=== PATIENT | female | born 1960 | race Hispanic/Latino ===

== ENCOUNTER 2017-09-06 18:16 | Emergency (ER) | payer BC ==
[~2017-09-06 18:16] MED LIST: Iopamidol 370 76% 150 ML VIAL FS ONE
[2017-09-06] MEDS ORDERED: Labetalol HCl 100 MG/20 ML VIAL ONE (19:06)
[2017-09-06 19:24] LABS: #Eosinphils 0.1 thou/uL (0.0-0.7); #Lymphocytes 1.6 thou/uL (1.20-3.40); #Monocytes 0.3 thou/uL (0.11-0.59); #Neutrophils 2.9 thou/uL (1.40-6.50); %Basophils 0.8 % (0.0-1.0); %Eosinophils 1.2 % (0.0-10.0); %Lymphocytes 32.1 % (21.0-51.0); Hematocrit 39.3 % (36.0-47.0); Mean Platelet Volume 7.6 fL (7.4-10.4); Red Blood Cell (RBC) Count 4.51 mill/uL (4.20-5.40); White Blood Cell (WBC) Count 4.9 thou/uL (4.8-10.8)
--- NOTE | 2017-09-06 19:29 | CT ---
CT OF THE BRAIN WITHOUT CONTRAST STROKE PROTOCOL 09/06/17 INDICATION: Syncope with reported loss of consciousness and right arm weakness. COMPARISON: Prior exam dated 10/13/14. FINDINGS: No acute infarct, hemorrhage or hydrocephalus is present. The septum pellucidum and third ventricle a re midline. The skull and extracranial soft tissues are within normal limits. IMPRESSION: No acute intracranial abnormality. Findings called to Dr. Elias at 6:43 p.m. on 09/06/17. POS: [facility]
[2017-09-06 19:30] LABS: Prothrombin Time 12.8 SEC (12.0-14.7)
--- NOTE | 2017-09-06 19:41 | RAD ---
AP VIEW OF THE CHEST 09/06/17 INDICATION: Syncopal episode with chest pain. IMPRESSION: No acute cardiopulmonary abnormality. Examination is not appreciably changed from a comparison dated 05/06/14. POS: [facility]
[2017-09-06 19:49] LABS: ALT (SGPT) 23 U/L (8-55); AST (SGOT) 14 U/L (5-34); Alkaline Phosphatase 100 U/L (40-150); Anion Gap 12 mmol/L (10-20); BUN (Urea Nitrogen) 25 mg/dL (9.8-20.1); Bilirubin, Total 0.7 mg/dL (0.2-1.2); CK (CPK) 62 U/L (29-168); Calc. Creatinine Clearance 0 mL/min (70-130); Calcium 8.8 mg/dL (7.8-10.44); Carbon Dioxide 26 mmol/L (22-29); Chloride 95 mmol/L (98-107); Estimated GFR-MDRD 68; Globulin 3.3 g/dL (2.4-3.5); Lipase 24 U/L (8-78); Magnesium 1.5 mg/dL (1.6-2.6); Protein, Total 6.6 g/dL (6.0-8.3)
[2017-09-06 19:52] LABS: Troponin I Less than 0.010 ng/mL (< 0.028)
--- NOTE | 2017-09-06 19:52 | CT ---
CTA OF THE HEAD AND NECK UTILIZING IV CONTRAST AND 3D REFORMATTED IMAGING CT PERFUSION EVALUATION 09/06/17 INDICATION: 57-year-old female with stroke-like symptoms following a syncopal episode at 5:30 p.m. Family reports loss of consciousness for about three to four minutes. Denies hitting her head. The patient started having chest pain which is now improving. Also reports right arm weakness that started after passing out. Denies numbness or tingling. Patient has a history of a stroke along time ago with no deficits. COMPARISON: Prior MR of the brain dated 10/14/14. TECHNIQUE: Multiple CTA images were obtained of the head and neck utilizing IV contrast and 3D reformatted imagi ng. CT perfusion postprocessing was performed at a separate workstation utilizing CTA data. FINDINGS: No hemodynamically significant stenosis is evident involving the carotid and vertebral arteries. Veno us contamination from the injection slightly limits visualization of the proximal aspect of the right vertebral artery. The MCA and ACAs appear widely patent. The operations coordinator appear widely patent. The basilar appears widely patent. Left vertebral artery appears widely patent. Lung apices are clear. Prevertebral soft tissues appear within normal limits. No area of abnormal enhancement is seen within the brain. CT perfusion images demonstrate no prolongation in mean transit time or diminished blood flow. The bl ood volume is symmetric. IMPRESSION: 1. No evidence to suggest ischemia on a CT perfusion evaluation. 2. No hemodynamically significant stenosis. 3. Some limitation to the exam as above. 4. Findings were called to Dr. Elias 7:05 p.m. on 09/06/17. Code CR POS: [facility]
[2017-09-06 21:39] LABS: Bilirubin Negative (Negative); Blood, Urine Trace (Negative); Glucose, Urine (Dipstick) >=1000 mg/dL (Negative); Ketone, Urine Negative (Negative); Nitrite Negative (Negative); Protein, Urine (Dipstick) 30 mg/dL (Neg-Trace)
[2017-09-06 21:42] LABS: Bacteria/HPF 1+ HPF (None Seen); Hyaline Casts/LPF 0-3 HYALINE CAST LPF (0-3 Hyaline); Squamous Epithelial 0-3 HPF (0-3); WBC/HPF 0-3 HPF (0-3)
[2017-09-06 21:51] LABS: Yeast-All Forms 1+ HPF (None Seen)
--- NOTE | 2017-09-10 11:09 | CT ---
CTA OF THE HEAD AND NECK UTILIZING IV CONTRAST AND 3D REFORMATTED IMAGING CT PERFUSION EVALUATION 09/06/17 INDICATION: 57-year-old female with stroke-like symptoms following a syncopal episode at 5:30 p.m. Family reports loss of consciousness for about three to four minutes. Denies hitting her head. The patient started having chest pain which is now improving. Also reports right arm weakness that started after passing out. Denies numbness or tingling. Patient has a history of a stroke along time ago with no deficits. COMPARISON: Prior MR of the brain dated 10/14/14. TECHNIQUE: Multiple CTA images were obtained of the head and neck utilizing IV contrast and 3D reformatted imagi ng. CT perfusion postprocessing was performed at a separate workstation utilizing CTA data. FINDINGS: No hemodynamically significant stenosis is evident involving the carotid and vertebral arteries. Veno us contamination from the injection slightly limits visualization of the proximal aspect of the right vertebral artery. The MCA and ACAs appear widely patent. The personnel assistant appear widely patent. The basilar appears widely patent. Left vertebral artery appears widely patent. Lung apices are clear. Prevertebral soft tissues appear within normal limits. No area of abnormal enhancement is seen within the brain. CT perfusion images demonstrate no prolongation in mean transit time or diminished blood flow. The bl ood volume is symmetric. IMPRESSION: 1.No evidence to suggest ischemia on a CT perfusion evaluation. 2.No hemodynamically significant stenosis. 3.Some limitation to the exam as above. 4.Findings were called to Dr. Elias 7:05 p.m. on 09/06/17. Code [facility]
--- NOTE | 2017-09-16 13:24 | EKG ---
Test Reason : CP Blood Pressure : / mmHG Vent. Rate : 076 BPM Atrial Rate : 076 BPM P-R Int : 146 ms QRS Dur : 082 ms QT Int : 378 ms P-R-T Axes : 037 024 033 degrees QTc Int : 425 ms Normal sinus rhythm Normal ECG Confirmed by SAUMYA VALENCIA ([id number]), magazine editor TASNEEM RAMESH ([id number]) on 09/16/2017 1:23:48 PM Referred By: Confirmed By:SAUMYA VALENCIA
== END 2017-09-06 22:06 | disposition left against medical advice (07) ==
LOC: ERS 18:16
DX: G45.9 Transient cerebral ischemic attack, unspecified (principal); R07.9 Chest pain, unspecified; H54.7 Unspecified visual loss; I10 Essential (primary) hypertension; E11.9 Type 2 diabetes mellitus without complications; E78.5 Hyperlipidemia, unspecified; Z79.84 Long term (current) use of oral hypoglycemic drugs; Z79.899 Other long term (current) drug therapy
CPT/HCPCS: 0042T; 36415; 36416; 70450; 70496; 70498; 71010; 80053; 81003; 81015; 82550; 82553; 83690; 83735; 83880; 84484; 85025; 85610; 85730; 93005; 94760

== ENCOUNTER 2017-11-09 11:01 | Emergency (ER) | payer BC, SELFPAY ==
[2017-11-09 11:35] LABS: #Basophils 0.1 thou/uL (0.0-0.2); #Eosinphils 0.1 thou/uL (0.0-0.7); #Lymphocytes 1.8 thou/uL (1.20-3.40); #Monocytes 0.2 thou/uL (0.11-0.59); #Neutrophils 2.8 thou/uL (1.40-6.50); %Basophils 2.1 % (0.0-1.0); %Eosinophils 1.7 % (0.0-10.0); %Monocytes 4.5 % (0.0-10.0); %Neutrophils 55.7 % (42.0-75.0); Mean Corpuscular HGB CONC 35.6 g/dL (32.0-36.0); Mean Corpuscular Hemoglobin 30.8 pg (27.0-31.0); Mean Corpuscular Volume 86.4 fl (81.0-99.0); Mean Platelet Volume 7.4 fL (7.4-10.4); Platelet Count 159 thou/uL (130-400); RBC Distribution Width 12.5 % (11.5-14.5); Red Blood Cell (RBC) Count 4.54 mill/uL (4.20-5.40); White Blood Cell (WBC) Count 5.1 thou/uL (4.8-10.8)
[2017-11-09 11:56] LABS: ALT (SGPT) 22 U/L (8-55); AST (SGOT) 14 U/L (5-34); Albumin 3.3 g/dL (3.5-5.0); Alkaline Phosphatase 92 U/L (40-150); Anion Gap 12 mmol/L (10-20); BUN (Urea Nitrogen) 19 mg/dL (9.8-20.1); Bilirubin, Total 0.8 mg/dL (0.2-1.2); Calc. Creatinine Clearance 0 mL/min (70-130); Calcium 8.9 mg/dL (7.8-10.44); Carbon Dioxide 26 mmol/L (22-29); Chloride 102 mmol/L (98-107); Estimated GFR-MDRD 73; Glucose 290 mg/dL (70-105); Potassium 4.2 mmol/L (3.5-5.1); Protein, Total 6.3 g/dL (6.0-8.3); Sodium 136 mmol/L (136-145)
[2017-11-09 12:02] LABS: CKMB 1.4 ng/mL (0-6.6); Troponin I Less than 0.010 ng/mL (< 0.028)
[2017-11-09 12:39] LABS: Bilirubin Negative (Negative); Blood, Urine Trace (Negative); Clarity CLEAR (Clear); Glucose, Urine (Dipstick) >=1000 mg/dL (Negative); Leukocyte Negative (Negative); Nitrite Negative (Negative); Protein, Urine (Dipstick) 100 mg/dL (Neg-Trace); Specific Gravity, Urine 1.028 (1.002-1.036); Urobilinogen 0.2 mg/dL (0.2-1.0); pH, Urine 6.5 (5.0-9.0)
[2017-11-09 12:43] LABS: Bacteria/HPF 2+ HPF (None Seen); Hyaline Casts/LPF 0-3 HYALINE CAST LPF (0-3 Hyaline); Pathc Cast-AUWi Flag 0.13 (0-2.49)
[2017-11-09 12:46] LABS: Yeast-AUWi Flag 144.8 (0-25.0)
[2017-11-09] MEDS ORDERED: Acetaminophen 500 MG TAB ONE (12:47)
[2017-11-09 12:53] LABS: RBC/HPF 0-3 HPF (0-3); Yeast-All Forms Rare HPF (None Seen)
--- NOTE | 2017-11-09 13:01 | RAD ---
CHEST 1 VIEW: History Fall. Cough. COMPARISON: 09/06/17. FINDINGS: Cardiac silhouette is magnified by projection. Pulmonary vasculature is unremarkable. Mediastinum i s midline. There is no confluent airspace consolidation or evidence of pneumothorax. Postoperative changes of the upper abdomen are partially visualized. IMPRESSION: No active cardiopulmonary abnormalities are demonstrated. POS: [facility]
== END 2017-11-09 13:30 | disposition home or self-care (01) ==
LOC: ERS 11:01
DX: E86.0 Dehydration (principal); R53.1 Weakness; N39.0 Urinary tract infection, site not specified; I10 Essential (primary) hypertension; E11.9 Type 2 diabetes mellitus without complications; E78.5 Hyperlipidemia, unspecified; Z79.899 Other long term (current) drug therapy; Z79.84 Long term (current) use of oral hypoglycemic drugs
CPT/HCPCS: 36415; 71045; 80053; 81003; 81015; 82550; 82553; 83880; 84484; 85025; 85379; 87040; 93005; 96360

== ENCOUNTER 2018-03-07 11:50 | Emergency (ER) | payer SELFPAY ==
--- NOTE | 2018-03-07 12:46 | RAD ---
RIGHT ANKLE 3 VIEWS: Date: 03/07/18 HISTORY: Right heel pain. FINDINGS/IMPRESSION: The ankle mortise is maintained. No fracture, dislocation, or bony destruction is seen. There are sarabjit ntar and posterior calcaneal spurs. POS: [facility]
--- NOTE | 2018-03-07 12:47 | RAD ---
RIGHT FOOT 3 VIEWS: Date: 03/07/18 HISTORY: Right heel pain. FINDINGS/IMPRESSION: No fracture, dislocation, or bony destruction is identified. There are posterior and plantar calcanea l spurs. POS: [facility]
[2018-03-07] MEDS ORDERED: Dexamethasone 10 MG/ML VIAL ONE (13:37)
[2018-03-07] MEDS ORDERED: Ketorolac Tromethamine 60 MG/2 ML VIAL ONE (13:37)
== END 2018-03-07 14:00 | disposition home or self-care (01) ==
LOC: ERS 11:50
DX: M77.31 Calcaneal spur, right foot (principal); I10 Essential (primary) hypertension; E11.9 Type 2 diabetes mellitus without complications; E78.5 Hyperlipidemia, unspecified; Z85.528 Personal history of other malignant neoplasm of kidney; Z79.84 Long term (current) use of oral hypoglycemic drugs; Z79.899 Other long term (current) drug therapy
CPT/HCPCS: 96372; J1100; J1885

== ENCOUNTER 2018-04-13 08:53 | Outpatient (CLI) | payer BC | END 2018-04-13 08:54 | disposition home or self-care (01) | LOC: BICRAD 08:53 | PROVIDERS: ATTEND Podiatrist | DX: M76.60 Achilles tendinitis, unspecified leg (principal); M79.661 Pain in right lower leg; R60.9 Edema, unspecified ==

== ENCOUNTER 2018-05-22 16:35 | Inpatient (IN) | payer BC ==
[2018-05-22 18:41] LABS: #Eosinphils 0.1 thou/uL (0.0-0.7); #Lymphocytes 1.9 thou/uL (1.20-3.40); #Monocytes 0.3 thou/uL (0.11-0.59); #Neutrophils 3.7 thou/uL (1.40-6.50); %Basophils 0.5 % (0.0-1.0); %Eosinophils 1.3 % (0.0-10.0); %Lymphocytes 31.5 % (21.0-51.0); %Monocytes 4.5 % (0.0-10.0); %Neutrophils 62.3 % (42.0-75.0); Hemoglobin 14.1 g/dL (12.0-16.0); Mean Corpuscular HGB CONC 35.8 g/dL (32.0-36.0); Mean Corpuscular Hemoglobin 30.2 pg (27.0-31.0); Mean Corpuscular Volume 84.4 fL (78.0-98.0); Mean Platelet Volume 7.6 fL (7.4-10.4); Platelet Count 163 thou/uL (130-400); RBC Distribution Width 12.5 % (11.5-14.5); Red Blood Cell (RBC) Count 4.67 mill/uL (4.20-5.40); White Blood Cell (WBC) Count 5.9 thou/uL (4.8-10.8)
[2018-05-22 19:04] LABS: ALT (SGPT) 23 U/L (8-55); AST (SGOT) 13 U/L (5-34); Albumin 3.4 g/dL (3.5-5.0); Alkaline Phosphatase 114 U/L (40-150); Anion Gap 13 mmol/L (10-20); BUN (Urea Nitrogen) 21 mg/dL (9.8-20.1); Bilirubin, Total 0.6 mg/dL (0.2-1.2); Calc. Creatinine Clearance 0 mL/min (70-130); Carbon Dioxide 24 mmol/L (22-29); Chloride 100 mmol/L (98-107); Estimated GFR-MDRD 47; Globulin 3.2 g/dL (2.4-3.5); Potassium 4.4 mmol/L (3.5-5.1); Protein, Total 6.6 g/dL (6.0-8.3); Sodium 133 mmol/L (136-145)
[2018-05-22 19:08] LABS: Glucose 554 mg/dL (70-105)
--- NOTE | 2018-05-22 19:08 | RAD ---
RIGHT HAND THREE VIEWS: 05/22/18 HISTORY: Right hand pain and infection. FINDINGS: Joint spaces are preserved. Soft tissue swelling over the medial margin of the hand. No acute fractur e, dislocation, or radiopaque foreign bodies, or soft tissue gas. IMPRESSION: No acute osseous abnormalities are demonstrated. POS: [facility]
[2018-05-22] MEDS ORDERED: cefTRIAXone\\ROCEPHIN 2 GM VIAL ONE (20:06)
[2018-05-22] MEDS ORDERED: Insulin Regular 300 UNITS/3 ML VIAL ONE (20:06)
[2018-05-22 21:49] VITALS: BMI 36.1
[2018-05-22] MEDS ORDERED: Acetaminophen 325 MG TAB PO PRN (21:51)
[2018-05-22] MEDS ORDERED: Ondansetron HCl/PF 4 MG/2 ML Vial IVP PRN (21:51)
[2018-05-22] MEDS ORDERED: Ondansetron ODT 4 MG TAB SL PRN (21:51)
[2018-05-22] MEDS ORDERED: Sodium Chloride 0.9% 1,000 ML IV SCH ×2 (22:00→23:25)
[2018-05-22 22:49] LABS: Lactic Acid 1.5 mmol/L (0.5-2.2)
[2018-05-22] MEDS ORDERED: Dextrose 5% in Water 1,000 ML IV PRN (23:26)
[2018-05-22] MEDS ORDERED: Dextrose 50% Abboject 50 ML SYRINGE SLOW IVP PRN (23:26)
--- NOTE | 2018-05-23 03:49 | CON ---
DATE OF CONSULTATION: 05/22/2018 CHIEF COMPLAINT: Right hand swelling and pain after local injury. HISTORY OF PRESENT ILLNESS: The patient reports she is a diabetic, taking an oral medication, who re ports an unchanged diabetic regimen, but reports that a small kitchen unit burner contacted her right dorsal ring finger near the nailbed approximately 3 days ago and for most of that time until approxi mately 24 hours ago, she had no pain, but noticed swelling, slight redness, and decreased motion toda y. She has never had an injury here before. Emergency room evaluation there reveals a blood sugar o hilary 500. White blood cell count is normal. No anemia. PHYSICAL EXAMINATION: The patient today has erythema that is moderate over the distal half of the mid dle phalanx out to the nailbed where she has a small bulla without any obvious abscess or fluctuance over the joint. There is no pain with joint motion, indeed today she has full extension of that ring finger distal interphalangeal joint, no stretch pain, no fusiform swelling, no pain along the tendon sheath, and her edema is primarily dorsal to the level of the PIP joint, but involved in either int erphalangeal joint. There is no stretch pain whatsoever. She can touch the tip of the ring finger t o the palm today. This exam took place at approximately 1935 on the date of consultation. ASSESSMENT AND RECOMMENDATIONS: Cellulitis secondary to burn complicated by diabetic, elevated blood sugar: This patient will probably be admitted for diabetic care, I recommended she have IV antibiot ics for 36 hours, will be reevaluated then. She does not make complete resolution, then shortly ther [facility], she would have operative intervention. We will evaluate the patient in here in the hospital sometime on the 05/25/2018 approximately 48 hours after this. I told the patient of the possibility especially with diabetes, and she will need intervention, but she should have a 36 to 48-hour trial o f IV antibiotics. If further problems exist or she deteriorates rapidly, please reconsult Orthopedic Service, which is covering for the weekend.
[2018-05-23 04:43] LABS: #Eosinphils 0.1 thou/uL (0.0-0.7); #Lymphocytes 2.4 thou/uL (1.20-3.40); #Monocytes 0.4 thou/uL (0.11-0.59); #Neutrophils 3.1 thou/uL (1.40-6.50); %Basophils 0.8 % (0.0-1.0); %Eosinophils 1.9 % (0.0-10.0); %Lymphocytes 40.3 % (21.0-51.0); %Monocytes 6.3 % (0.0-10.0); %Neutrophils 50.7 % (42.0-75.0); Hemoglobin 12.5 g/dL (12.0-16.0); Mean Corpuscular Hemoglobin 30.4 pg (27.0-31.0); Mean Corpuscular Volume 84.6 fL (78.0-98.0); Mean Platelet Volume 7.6 fL (7.4-10.4); Platelet Count 141 thou/uL (130-400); RBC Distribution Width 12.5 % (11.5-14.5); White Blood Cell (WBC) Count 6.1 thou/uL (4.8-10.8)
[2018-05-23 04:58] LABS: Anion Gap 12 mmol/L (10-20); BUN (Urea Nitrogen) 17 mg/dL (9.8-20.1); Calc. Creatinine Clearance 102 mL/min (70-130); Calcium 8.7 mg/dL (7.8-10.44); Carbon Dioxide 23 mmol/L (22-29); Chloride 104 mmol/L (98-107); Estimated GFR-MDRD 73; Glucose 356 mg/dL (70-105); Potassium 3.8 mmol/L (3.5-5.1); Sodium 135 mmol/L (136-145)
[2018-05-23] MEDS: HumaLOG 300 UNITS/3 ML VIAL SC PRN ×4 (05:17→21:26)
--- NOTE | 2018-05-23 07:28 | HP ---
PRIMARY CARE PHYSICIAN: Dr. Wu. CODE STATUS: FULL CODE. TIME OF EVALUATION: 08:50 p.m. CHIEF COMPLAINT: Right fourth finger pain. HISTORY OF PRESENT ILLNESS: This is a 58-year-old female patient with past medical history of hypert ension; diabetes, type 2; hyperlipidemia, high cholesterol, came to the hospital after having pain, r edness, swelling, decreased range of motion due to tenderness in the right fourth finger, seen the re dness extending from the tip of the finger to the hand, the initial lesion was a burn in that area, n o alleviating factors. Symptoms were reported as moderate. REVIEW OF SYSTEMS: Constitutional: The patient had no fever, no chills, no generalized weakness. R espiratory: No cough, sputum production, or shortness of breath. Cardiovascular: No chest pain, pa lpitations, or shortness of breath. Gastrointestinal: No nausea. No vomiting. No diarrhea or abdo miracle pain. 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 Genitourinary: No burning on [place]. Extremities: No leg swelling. SKIN: There is right bobby redness, swelling, and tenderness seen that was extending to the hand. All other systems were reviewed and negative except for the findings mentioned above. PAST MEDICAL HISTORY: The patient has a history of hypertension, diabetes, hyperlipidemia. PAST SURGICAL HISTORY: x2, left kidney removal due to kidney cancer, cholecystectomy. PSYCHIATRIC HISTORY: No previous history. FAMILY HISTORY: Reviewed and noncontributory for current presentation. SOCIAL HISTORY: No drugs. No smoking history. No alcohol. ALLERGIES: No known drug allergies. REPORTED MEDICATIONS: Lovastatin, glipizide, lisinopril, furosemide, carvedilol, metformin, Ultram. PHYSICAL EXAMINATION: VITAL SIGNS: On presentation, blood pressure 145/77 with heart rate 91, respiratory rate was 18, tem perature 97, pain 8, oxygen saturation 96% on room air. GENERAL APPEARANCE: The patient is alert and oriented, not in any acute distress. HEENT: Eyes, normal conjunctivae. Moist oral mucosa. Anicteric. NECK: No JVD. RESPIRATORY: Bilateral air entry. No rales, no wheezing. Symmetrical expansion. CARDIOVASCULAR: Normal rate, regular rhythm. No murmurs, no gallops. No edema. ABDOMEN: Soft, normal bowel sounds. MUSCULOSKELETAL: Baseline range of motion and strength. No tenderness. SKIN: The patient has redness, swelling, tenderness, and decreased range of motion of the fourth fin jaimie of the right side, with extension of the swelling to the hand, peripheral pulses are present. Ca pillary refill seems to be intact. NEUROLOGIC: Baseline sensory. No evidence of any focal weakness. Baseline speech. Cranial nerves seem to be intact. PSYCHIATRIC: Good mood. No anxiety. Oriented, optimal judgment. IMAGING: Hand x-ray was done. The patient had no acute osseous abnormalities are demonstrated. LABORATORY DATA: The labs were reviewed. The patient has white count 5.9, hemoglobin 14.1, MCV 84, and platelet count 163. Chemistry: Sodium 133, potassium 4.4, chloride 100, carbon dioxide 24, anio n gap 13, BUN 21, creatinine 1.19, GFR 47, glucose 144, repeat one was 411. Lactic acid 2.3, came do wn to 1.5. C-reactive protein 1.191. ASSESSMENT AND PLAN: The patient will be placed in the hospital with following medical problems. 1. Infectious right fourth finger extending to the hand, the patient has been started on antib iotics and we will continue for now, Orthopedic Surgery has been consulted, we will follow recommendgermain tijagdish. 2. Hyponatremia, sodium 133, this is mild, no significant treatment to be started right now. We tonya l monitor. We will adjust treatment as needed. 3. Mildly elevated BUN and creatinine, likely secondary to dehydration versus possibility for sepsis , we will hydrate, we will monitor, we will treat accordingly. 4. Uncontrolled diabetes with glucose 154, likely secondary to underlying infection, we will place t he patient on sliding scale. We will reconcile home medications, adjust treatment as needed. 5. Lactic acidosis on presentation with lactic acid 2.3, came down to 1.5, likely secondary to under lying infection, sepsis, treatment as above. 6. Uncontrolled hypertension with systolic blood pressure 145, reconcile home medication, adjust liam atment as needed. We will not treat aggressively given underlying infection. 7. Hyperlipidemia, reconcile home medication, adjust treatment as needed, low cholesterol diet is ad vised.
[2018-05-23] MEDS: Furosemide 40 MG TAB PO SCH ×2 (08:25→14:23)
[2018-05-23] MEDS: Aspirin 81 mg Enteric Coated Tablet PO SCH (08:25)
[2018-05-23] MEDS: Carvedilol 3.125 MG TAB PO SCH ×2 (08:26→21:26)
[2018-05-23] MEDS: Lisinopril 5 MG TAB PO SCH (08:26)
[2018-05-23] MEDS: Enoxaparin Sodium 40 MG/0.4 ML SYRINGE SC SCH (08:27)
[2018-05-23] MEDS ORDERED: Meloxicam 15 MG TAB PO SCH (09:00)
[2018-05-23] MEDS ORDERED: Sodium Chloride 0.65% Nasal 44 ML BOT EA NARE PRN (09:53)
[2018-05-23] MEDS ORDERED: Temazepam 15 MG CAP PO PRN (09:53)
[2018-05-23] MEDS ORDERED: Loratadine 10 MG TAB PO PRN (09:53)
[2018-05-23] MEDS ORDERED: Chloraseptic Spray 180 ml Bottle PO PRN (09:53)
[2018-05-23] MEDS ORDERED: Ondansetron ODT 4 MG TAB PO PRN (09:53)
[2018-05-23] MEDS ORDERED: cloNIDine 0.1 MG TAB PO PRN (09:53)
[2018-05-23] MEDS ORDERED: hydrALAZINE 20 MG/ML VIAL SLOW IVP PRN (09:53)
[2018-05-23] MEDS ORDERED: Famotidine 20 MG TAB PO PRN (09:53)
[2018-05-23] MEDS ORDERED: Loperamide HCl 2 MG CAP PO PRN (09:53)
[2018-05-23] MEDS ORDERED: Eucerin (Mineral Oil/Petrolatum,White) 30 gm Jar TOP PRN (09:53)
[2018-05-23] MEDS ORDERED: Milk Of Magnesia 30 ML UDCUP PO PRN (09:53)
[2018-05-23] MEDS ORDERED: Artificial Tears 18 DROP/0.9 ML EA EYE PRN (09:53)
[2018-05-23] MEDS ORDERED: Diabetic Tussin 200 MG/10 ML UDCUP PO PRN (09:53)
[2018-05-23] MEDS ORDERED: Mag-Al 1200 mg/1200 mg/30 ML UDCUP PO PRN (09:53)
[2018-05-23] MEDS ORDERED: HYDROcodone/Acetaminophen 5/325 mg Tablet PO PRN (09:53)
[2018-05-23] MEDS ORDERED: Senokot 8.6 MG TAB PO PRN (09:53)
--- NOTE | 2018-05-23 10:38 | PDOC.PN ---
- Subjective Encounter Start Date: 05/23/18 Encounter Start Time: 08:30 -: old records requested/rev Patient seen and examined. No new complaints. No overnight events - Objective Resuscitation Status: Resuscitation Status FULL:Full Resuscitation MAR Reviewed: Yes Vital Signs & Weight: Vital Signs (12 hours) Temp Pulse Resp BP BP BP Pulse Ox 05/23/18 08:26 74 130/84 05/23/18 07:12 97.8 F 74 16 108/72 96 05/23/18 04:00 97.8 F 80 18 112/71 96 Weight Weight 185 lb Result Diagrams: 05/23/18 03:50 05/23/18 03:50 Additional Labs: Accuchecks 05/23/18 05/22/18 05:16 21:12 POC Glucose 310 H 411 H Radiology Reviewed by me: Yes Phys Exam - Physical Examination Constitutional: NAD HEENT: PERRLA, moist MMs, sclera anicteric Neck: no JVD, supple Respiratory: no wheezing, no rales, no rhonchi Cardiovascular: RRR, no significant murmur, no rub Gastrointestinal: soft, non-tender, no distention, positive bowel sounds Musculoskeletal: no edema, pulses present right finger cellulitis improving Neurological: non-focal, normal sensation, moves all 4 limbs Lymphatic: no nodes Psychiatric: normal affect, A&O x 3 Skin: no rash, normal turgor Dx/Plan (1) Acute kidney injury Code(s): N17.9 - ACUTE KIDNEY FAILURE, UNSPECIFIED Status: Acute (2) Cellulitis of right hand Code(s): L03.113 - CELLULITIS OF RIGHT UPPER LIMB Status: Acute (3) Hyponatremia Code(s): E87.1 - HYPO-OSMOLALITY AND HYPONATREMIA Status: Acute (4) Diabetes type 2, uncontrolled Code(s): E11.65 - TYPE 2 DIABETES MELLITUS WITH HYPERGLYCEMIA Status: Chronic (5) Dyslipidemia Code(s): E78.5 - HYPERLIPIDEMIA, UNSPECIFIED Status: Chronic (6) Hypertension Code(s): I10 - ESSENTIAL (PRIMARY) HYPERTENSION Status: Chronic (7) Obesity (BMI 30-39.9) Code(s): E66.9 - OBESITY, UNSPECIFIED Status: Chronic - Plan cont current plan of care, plan discussed w/ family, continue antibiotics * continue IV antibiotics for next 48 hours * restart diabetic medication * pain controlled * control diabetes today. Review of Systems - Review of Systems Constitutional: negative: fever, chills, sweats, weakness, malaise, other Eyes: negative: Pain, Vision Change, Conjunctivae Inflammation, Eyelid Inflammation, Redness, Other ENT: negative: Ear Pain, Ear Discharge, Nose Pain, Nose Discharge, Nose Congestion, Mouth Pain, Mouth Swelling, Throat Pain, Throat Swelling, Other Respiratory: negative: Cough, Dry, Shortness of Breath, Hemoptysis, SOB with Excertion, Pleuritic Pain, Sputum, Wheezing Cardiovascular: negative: chest pain, palpitations, orthopnea, paroxysmal nocturnal dyspnea, edema, light headedness, other Gastrointestinal: negative: Nausea, Vomiting, Abdominal Pain, Diarrhea, Constipation, Melena, Hematochezia, Other Genitourinary: negative: Dysuria, Frequency, Incontinence, Hematuria, Retention , Other Musculoskeletal: Hand Pain. negative: Neck Pain, Shoulder Pain, Arm Pain, Back Pain, Leg Pain, Foot Pain, Other - Medications/Allergies Allergies/Adverse Reactions: Allergies Allergy/AdvReac Type Severity Reaction Status Date / Time No Known Drug Allergies Allergy Verified 06/12/16 10:47 Medications: Current Medications Acetaminophen (Tylenol) 650 mg PO Q4H PRN PRN Reason: Headache/Fever or Pain Stop: 05/25/18 07:49 Hydrocodone Bitart/Acetaminophen ([place] 5/325) 1 tab PO Q4H PRN PRN Reason: Moderate Pain (4-6) Al Hydroxide/Mg Hydroxide (Maalox) 15 ml PO Q4H PRN PRN Reason: Heartburn or Indigestion Artificial Tears (Tears Naturale) 0 drop EA EYE PRN PRN PRN Reason: Dry Eyes Aspirin (Ecotrin) 81 mg PO DAILY [facility] Last Admin: 05/23/18 08:25 Dose: 81 mg Atorvastatin Calcium (Lipitor) 20 mg PO HS [facility] Carvedilol (Coreg) 3.125 mg PO BID [facility] Last Admin: 05/23/18 08:26 Dose: 3.125 mg Clonidine (Catapres) 0.1 mg PO Q4H PRN PRN Reason: Systolic BP > 180 Dextrose/Water (Dextrose 50%) 25 gm SLOW IVP PRN PRN PRN Reason: Hypoglycemia Enoxaparin Sodium (Lovenox) 40 mg SC 0900 [facility] Last Admin: 05/23/18 08:27 Dose: Not Given Famotidine (Pepcid) 20 mg PO BIDPRN PRN PRN Reason: Heartburn or Indigestion Furosemide (Lasix) 40 mg PO 0900,1400 [facility] Last Admin: 05/23/18 08:25 Dose: 40 mg Glipizide (Glucotrol Xl) 5 mg PO QAM-[facility] Glucagon (Glucagon) 1 mg IM PRN PRN PRN Reason: Hypoglycemia Guaifenesin (Robitussin Sf) 200 mg PO Q4H PRN PRN Reason: Cough Hydralazine HCl (Apresoline) 10 mg SLOW IVP Q4H PRN PRN Reason: Systolic BP > 180 Ceftriaxone Sodium 1 gm/ (Sodium Chloride) 100 mls @ 200 mls/hr IVPB Q24HR [facility] Dextrose/Water (D5w) 1,000 mls @ 0 mls/hr IV .Q0M PRN PRN Reason: Hypoglycemia Vancomycin HCl 1.25 gm/ Sodium (Chloride) 250 mls @ 166.667 mls/hr IVPB 1600 [facility] Insulin Human Lispro (Humalog) 0 units SC .MILD SLIDING SCALE PRN PRN Reason: Mild Correctional Scale Last Admin: 05/23/18 05:17 Dose: 5 unit Lisinopril (Zestril) 5 mg PO DAILY [facility] Last Admin: 05/23/18 08:26 Dose: 5 mg Loperamide HCl (Imodium) 2 mg PO PRN PRN PRN Reason: Diarrhea/Loose Stools Loratadine (Claritin) 10 mg PO DAILYPRN PRN PRN Reason: Sinus Symptoms Magnesium Hydroxide (Milk Of Magnesium) 30 ml PO DAILYPRN PRN PRN Reason: Constipation Metformin HCl (Glucophage) 1,000 mg PO BID-WM [facility] Mineral Oil/White Petrolatum (Eucerin Cream) 0 gm TOP BIDPRN PRN PRN Reason: Dry Skin Ondansetron HCl (Zofran) 4 mg IVP Q6H PRN PRN Reason: Nausea/Vomiting Stop: 05/26/18 07:49 Ondansetron HCl (Zofran Odt) 4 mg PO Q6H PRN PRN Reason: Nausea/Vomiting Phenol (Chloraseptic [place] 180 Ml Bot) 0 ml PO PRN PRN PRN Reason: Sore Throat Senna (Senokot) 2 tab PO HSPRN PRN PRN Reason: Constipation Sodium Chloride ([place]ams Nasal [place] 0.65%) 0 ml EA NARE QIDPRN PRN PRN Reason: Nasal Congestion Temazepam (Restoril) 15 mg PO HSPRN PRN PRN Reason: Insomnia
[2018-05-23] MEDS: metFORMIN 500 MG TAB PO SCH (16:34)
[2018-05-23] MEDS: Vancomycin HCl 1.25 GM in Sodium Chloride 0.9% 250 ML 250 ML IVPB SCH (16:34)
[2018-05-23] MEDS: Atorvastatin Calcium 20 MG TAB PO SCH (21:26)
[2018-05-23] MEDS: cefTRIAXone\\ROCEPHIN 1 GM in Sodium Chloride 0.9% 100 ML IVPB SCH (21:41)
[2018-05-24 04:52] LABS: #Basophils 0.1 thou/uL (0.0-0.2); #Eosinphils 0.1 thou/uL (0.0-0.7); #Lymphocytes 2.5 thou/uL (1.20-3.40); #Monocytes 0.4 thou/uL (0.11-0.59); #Neutrophils 3.8 thou/uL (1.40-6.50); %Basophils 0.8 % (0.0-1.0); %Eosinophils 1.7 % (0.0-10.0); %Lymphocytes 36.6 % (21.0-51.0); %Monocytes 5.8 % (0.0-10.0); %Neutrophils 55.2 % (42.0-75.0); Hemoglobin 12.9 g/dL (12.0-16.0); Mean Corpuscular HGB CONC 34.4 g/dL (32.0-36.0); Mean Corpuscular Hemoglobin 29.3 pg (27.0-31.0); Mean Platelet Volume 7.8 fL (7.4-10.4); Platelet Count 166 thou/uL (130-400); RBC Distribution Width 12.6 % (11.5-14.5); Red Blood Cell (RBC) Count 4.39 mill/uL (4.20-5.40); White Blood Cell (WBC) Count 6.9 thou/uL (4.8-10.8)
[2018-05-24 05:12] LABS: Anion Gap 12 mmol/L (10-20); BUN (Urea Nitrogen) 20 mg/dL (9.8-20.1); Calc. Creatinine Clearance 86 mL/min (70-130); Calcium 8.9 mg/dL (7.8-10.44); Carbon Dioxide 28 mmol/L (22-29); Chloride 100 mmol/L (98-107); Estimated GFR-MDRD 60; Glucose 323 mg/dL (70-105); Potassium 3.7 mmol/L (3.5-5.1); Sodium 136 mmol/L (136-145)
[2018-05-24] MEDS: HumaLOG 300 UNITS/3 ML VIAL SC PRN ×3 (05:51→18:15)
[2018-05-24] MEDS: Lisinopril 5 MG TAB PO SCH (09:02)
[2018-05-24] MEDS: Furosemide 40 MG TAB PO SCH ×2 (09:02→15:21)
[2018-05-24] MEDS: metFORMIN 500 MG TAB PO SCH ×2 (09:04→16:35)
[2018-05-24] MEDS: Carvedilol 3.125 MG TAB PO SCH ×2 (09:04→20:04)
[2018-05-24] MEDS: Aspirin 81 mg Enteric Coated Tablet PO SCH (09:04)
[2018-05-24] MEDS: Enoxaparin Sodium 40 MG/0.4 ML SYRINGE SC SCH (09:05)
[2018-05-24 09:48] LABS: Hemoglobin A1c 13.6 % (4.0-6.0)
--- NOTE | 2018-05-24 11:41 | PDOC.PN ---
- Subjective Encounter Start Date: 05/24/18 Encounter Start Time: 08:20 Patient seen and examined. No new complaints. No overnight events - Objective Resuscitation Status: Resuscitation Status FULL:Full Resuscitation MAR Reviewed: Yes Vital Signs & Weight: Vital Signs (12 hours) Temp Pulse Resp BP BP Pulse Ox 05/24/18 09:02 73 131/83 05/24/18 07:17 97.8 F 73 16 106/72 96 Weight Weight 185 lb I&O: 05/23/18 05/24/18 05/25/18 06:59 06:59 06:59 Intake Total 1820 Balance 1820 Result Diagrams: 05/24/18 04:06 05/24/18 04:06 Additional Labs: Accuchecks 05/24/18 05/23/18 05/23/18 04:39 19:45 16:21 POC Glucose 313 H 451 H 476 H 05/23/18 11:07 POC Glucose 310 H Phys Exam - Physical Examination Constitutional: NAD HEENT: PERRLA, moist MMs, sclera anicteric Neck: no JVD, supple Respiratory: no wheezing, no rales, no rhonchi Cardiovascular: RRR, no significant murmur, no rub Gastrointestinal: soft, non-tender, no distention, positive bowel sounds Musculoskeletal: no edema, pulses present right hand swelling and finger cellulitis improving Neurological: non-focal, normal sensation, moves all 4 limbs Psychiatric: normal affect, A&O x 3 Skin: no rash, normal turgor Dx/Plan (1) Acute kidney injury Code(s): N17.9 - ACUTE KIDNEY FAILURE, UNSPECIFIED Status: Acute (2) Cellulitis of right hand Code(s): L03.113 - CELLULITIS OF RIGHT UPPER LIMB Status: Acute (3) Hyponatremia Code(s): E87.1 - HYPO-OSMOLALITY AND HYPONATREMIA Status: Acute (4) Diabetes type 2, uncontrolled Code(s): E11.65 - TYPE 2 DIABETES MELLITUS WITH HYPERGLYCEMIA Status: Chronic (5) Dyslipidemia Code(s): E78.5 - HYPERLIPIDEMIA, UNSPECIFIED Status: Chronic (6) Hypertension Code(s): I10 - ESSENTIAL (PRIMARY) HYPERTENSION Status: Chronic (7) Obesity (BMI 30-39.9) Code(s): E66.9 - OBESITY, UNSPECIFIED Status: Chronic - Plan cont current plan of care, continue antibiotics * HBA1c is very high, for better control of blood sugar, will change to glipizide 5 mg po bid, will add levemir 15 unit sc hs * continue current IV antibiotics, rocephin and vancomycin * medication reviewed as below * symptomatic treatment * pain controlled. Review of Systems - Review of Systems Eyes: negative: Pain, Vision Change, Conjunctivae Inflammation, Eyelid Inflammation, Redness, Other ENT: negative: Ear Pain, Ear Discharge, Nose Pain, Nose Discharge, Nose Congestion, Mouth Pain, Mouth Swelling, Throat Pain, Throat Swelling, Other Respiratory: negative: Cough, Dry, Shortness of Breath, Hemoptysis, SOB with Excertion, Pleuritic Pain, Sputum, Wheezing Cardiovascular: negative: chest pain, palpitations, orthopnea, paroxysmal nocturnal dyspnea, edema, light headedness, other Gastrointestinal: negative: Nausea, Vomiting, Abdominal Pain, Diarrhea, Constipation, Melena, Hematochezia, Other Genitourinary: negative: Dysuria, Frequency, Incontinence, Hematuria, Retention , Other Musculoskeletal: Hand Pain. negative: Neck Pain, Shoulder Pain, Arm Pain, Back Pain, Leg Pain, Foot Pain, Other Skin: negative: Rash, Lesions, Jimenez, Bruising, Other - Medications/Allergies Allergies/Adverse Reactions: Allergies Allergy/AdvReac Type Severity Reaction Status Date / Time No Known Drug Allergies Allergy Verified 06/12/16 10:47 Medications: Current Medications Acetaminophen (Tylenol) 650 mg PO Q4H PRN PRN Reason: Headache/Fever or Pain Stop: 05/25/18 07:49 Hydrocodone Bitart/Acetaminophen ([place] 5/325) 1 tab PO Q4H PRN PRN Reason: Moderate Pain (4-6) Al Hydroxide/Mg Hydroxide (Maalox) 15 ml PO Q4H PRN PRN Reason: Heartburn or Indigestion Artificial Tears (Tears Naturale) 0 drop EA EYE PRN PRN PRN Reason: Dry Eyes Aspirin (Ecotrin) 81 mg PO DAILY [facility] Last Admin: 05/24/18 09:04 Dose: 81 mg Atorvastatin Calcium (Lipitor) 20 mg PO HS [facility] Last Admin: 05/23/18 21:26 Dose: 20 mg Carvedilol (Coreg) 3.125 mg PO BID [facility] Last Admin: 05/24/18 09:04 Dose: 3.125 mg Clonidine (Catapres) 0.1 mg PO Q4H PRN PRN Reason: Systolic BP > 180 Dextrose/Water (Dextrose 50%) 25 gm SLOW IVP PRN PRN PRN Reason: Hypoglycemia Enoxaparin Sodium (Lovenox) 40 mg SC 0900 [facility] Last Admin: 05/24/18 09:05 Dose: Not Given Famotidine (Pepcid) 20 mg PO BIDPRN PRN PRN Reason: Heartburn or Indigestion Furosemide (Lasix) 40 mg PO 0900,1400 [facility] Last Admin: 05/24/18 09:02 Dose: 40 mg Glipizide (Glucotrol) 5 mg PO BID-[facility] Glucagon (Glucagon) 1 mg IM PRN PRN PRN Reason: Hypoglycemia Guaifenesin (Robitussin Sf) 200 mg PO Q4H PRN PRN Reason: Cough Hydralazine HCl (Apresoline) 10 mg SLOW IVP Q4H PRN PRN Reason: Systolic BP > 180 Ceftriaxone Sodium 1 gm/ (Sodium Chloride) 100 mls @ 200 mls/hr IVPB Q24HR [facility] Last Admin: 05/23/18 21:41 Dose: 100 mls Dextrose/Water (D5w) 1,000 mls @ 0 mls/hr IV .Q0M PRN PRN Reason: Hypoglycemia Vancomycin HCl 1.25 gm/ Sodium (Chloride) 250 mls @ 166.667 mls/hr IVPB 1600 [facility] Last Admin: 05/23/18 16:34 Dose: 250 mls Insulin Glargine 15 units/ (Miscellaneous Medication) 0.15 mls @ 0 mls/hr SC [facility] Insulin Human Lispro (Humalog) 0 units SC .MILD SLIDING SCALE PRN PRN Reason: Mild Correctional Scale Last Admin: 05/24/18 05:51 Dose: 5 unit Lisinopril (Zestril) 5 mg PO DAILY [facility] Last Admin: 05/24/18 09:02 Dose: 5 mg Loperamide HCl (Imodium) 2 mg PO PRN PRN PRN Reason: Diarrhea/Loose Stools Loratadine (Claritin) 10 mg PO DAILYPRN PRN PRN Reason: Sinus Symptoms Magnesium Hydroxide (Milk Of Magnesium) 30 ml PO DAILYPRN PRN PRN Reason: Constipation Metformin HCl (Glucophage) 1,000 mg PO BID-[facility] Last Admin: 05/24/18 09:04 Dose: 1,000 mg Mineral Oil/White Petrolatum (Eucerin Cream) 0 gm TOP BIDPRN PRN PRN Reason: Dry Skin Ondansetron HCl (Zofran) 4 mg IVP Q6H PRN PRN Reason: Nausea/Vomiting Stop: 05/26/18 07:49 Ondansetron HCl (Zofran Odt) 4 mg PO Q6H PRN PRN Reason: Nausea/Vomiting Phenol (Chloraseptic [place] 180 Ml Bot) 0 ml PO PRN PRN PRN Reason: Sore Throat Senna (Senokot) 2 tab PO HSPRN PRN PRN Reason: Constipation Sodium Chloride ([place] Nasal [place] 0.65%) 0 ml EA NARE QIDPRN PRN PRN Reason: Nasal Congestion Temazepam (Restoril) 15 mg PO HSPRN PRN PRN Reason: Insomnia
[2018-05-24] MEDS ORDERED: Silver Sulfadiazine 1% Cream 50 GM JAR TOP SCH (15:00)
[2018-05-24] MEDS: Vancomycin HCl 1.25 GM in Sodium Chloride 0.9% 250 ML 250 ML IVPB SCH (15:21)
[2018-05-24 15:36] LABS: Vancomycin, Trough 8.3 ug/mL
[2018-05-24] MEDS: glipiZIDE 5 MG TAB PO SCH (16:35)
[2018-05-24] MEDS ORDERED: Nitroglycerin 0.4 MG TAB (25 Tab Bottle) ONE (19:11)
[2018-05-24] MEDS: Atorvastatin Calcium 20 MG TAB PO SCH (20:04)
[2018-05-24] MEDS: cefTRIAXone\\ROCEPHIN 1 GM in Sodium Chloride 0.9% 100 ML IVPB SCH (20:04)
[2018-05-24] MEDS: Silver Sulfadiazine 1% Cream 50 GM JAR TOP SCH (20:05)
[2018-05-24 20:34] LABS: Troponin I Less than 0.010 ng/mL (< 0.028)
[2018-05-24] MEDS ORDERED: Insulin Glargine 15 UNITS in Pre-Filled Syringe SC SCH (21:00)
[2018-05-24 23:32] LABS: CKMB 0.8 ng/mL (0-6.6); Troponin I Less than 0.010 ng/mL (< 0.028)
[2018-05-25 03:02] LABS: CKMB 0.7 ng/mL (0-6.6); Troponin I Less than 0.010 ng/mL (< 0.028)
[2018-05-25] MEDS ORDERED: Vancomycin HCl 1 GM in Premix Bag 1 BAG IVPB SCH (04:00)
[2018-05-25] MEDS: HumaLOG 300 UNITS/3 ML VIAL SC PRN ×2 (04:50→12:06)
[2018-05-25] MEDS: glipiZIDE 5 MG TAB PO SCH (08:27)
[2018-05-25] MEDS: Lisinopril 5 MG TAB PO SCH (08:28)
[2018-05-25] MEDS: Furosemide 40 MG TAB PO SCH ×2 (08:28→14:09)
[2018-05-25] MEDS: metFORMIN 500 MG TAB PO SCH (08:28)
[2018-05-25] MEDS: Carvedilol 3.125 MG TAB PO SCH (08:29)
[2018-05-25] MEDS: Enoxaparin Sodium 40 MG/0.4 ML SYRINGE SC SCH (08:29)
[2018-05-25] MEDS: Aspirin 81 mg Enteric Coated Tablet PO SCH (08:29)
[2018-05-25] MEDS: Silver Sulfadiazine 1% Cream 50 GM JAR TOP SCH (08:30)
--- NOTE | 2018-05-25 12:17 | DIS ---
PRIMARY CARE PHYSICIAN: Dr. Janine Wu DATE OF ADMISSION: 05/22/2018 DATE OF DISCHARGE: 05/25/2018 DISCHARGE DISPOSITION: Home. PRIMARY DISCHARGE DIAGNOSES: 1. Acute kidney injury, improved. 2. Cellulitis of right second digit as well as cellulitis of right hand, improved. 3. Hyponatremia due to hyperglycemia. SECONDARY DISCHARGE DIAGNOSES: Obesity with BMI 36, hypertension, dyslipidemia, diabetes type 2. PRIMARY PROCEDURES/OPERATIONS: None. RADIOLOGICAL INVESTIGATION: Hand x-ray was unremarkable. SIGNIFICANT LABORATORY DATA: WBC 6.9, hemoglobin 12.9, platelet 166. Cardiac enzymes negative x3. Sodium 136, potassium 3.7, BUN 20, creatinine 0.96. Hemoglobin A1c 13.6, calcium 8.9. CRP 1.40. Cu lture negative. DISCHARGE MEDICATIONS: Levemir insulin 15 units subcu at bedtime, Glargine insulin, Lantus insulin 1 5 units subcu at bedtime, glipizide 5 mg p.o. b.i.d., metformin 1000 mg p.o. b.i.d., Keflex 500 mg p. o. t.i.d. for 10 days, Lipitor 20 mg p.o. at bedtime, Lisinopril 5 mg p.o. daily, Lasix 40 mg p.o. b. i.d., Coreg 3.125 mg p.o. b.i.d., aspirin 81 mg p.o. daily. CONTRAINDICATIONS: None. CODE STATUS: FULL CODE. INPATIENT CONSULTANTS: Dr. Nick Maldonado TEST RESULTS PENDING ON DISCHARGE: None. ALLERGIES: No known drug allergy. DISCHARGE PLAN: Post hospital, the patient is instructed to follow up with primary care physician. HOSPITAL COURSE: The patient is a 58-year-old female who was admitted by Dr. Clay for right seco nd digit cellulitis as well as her right hand cellulitis. The patient was admitted to medical floor. Dr. Nick Maldonado saw this patient. On admission, the patient's diabetes was out of control. He r blood sugar was very high. Her hemoglobin A1c is 13.6. We increased the glipizide to twice daily. We continued with metformin 1000 mg twice daily and we added Lantus insulin 15 units subcu at bedti me. I provided patient education about monitoring blood sugar and follow up with primary care physic ananya for further adjustment of medication. At this point, patient was given diabetes education and di abetic diet education. The patient's hand surgeon, Dr. Nick Maldonado cleared her for discharge fro m a hand perspective. At this point, the patient does not need to be in hospital other than she need s some monitoring of blood sugar at home and follow up with primary care physician or diabetic specia list. I sent all new prescription to her pharmacy. The patient is seen and examined at bedside today. VITAL SIGNS: Currently, temperature 97.9, pulse 73, respiratory rate 16, saturation 96% on room air, blood pressure 125/80, weight 185 pounds. GENERAL: The patient is currently alert, awake, no obvious acute distress. HEAD: Normocephalic, atraumatic. EYES: Pupils round, reactive to light. Extraocular muscle intact. ENT: Oropharynx within normal limits. Moist mucous membranes. No oral lesion, no pharyngeal erythe ma, no exudate. NECK: Supple, no JVD, no thyromegaly, no carotid bruit. LUNGS: Clear to auscultation without any rhonchi or rales. CARDIAC: S1, S2 regular without any murmur. ABDOMEN: Soft and benign without any tenderness. EXTREMITIES: No edema. NEUROLOGIC: Nonfocal examination. The patient is medically stable for discharge.
[2018-05-25 12:44] VITALS: TEMP 98
[2018-05-25 14:12] VITALS: BP 132/68
== END 2018-05-25 15:00 | disposition home or self-care (01) | DRG 603 ==
LOC: ERS 16:35 → T4-A 21:29
PROVIDERS: ADMIT Hospitalist; ATTEND Hospitalist
DX: L03.113 Cellulitis of right upper limb (principal); E87.1 Hypo-osmolality and hyponatremia; E87.2 Acidosis; N17.9 Acute kidney failure, unspecified; E86.0 Dehydration; E11.65 Type 2 diabetes mellitus with hyperglycemia; I10 Essential (primary) hypertension; E78.5 Hyperlipidemia, unspecified; E66.9 Obesity, unspecified; Z68.36 Body mass index [BMI] 36.0-36.9, adult
CPT/HCPCS: 36415; 36416; 80048; 80053; 80202; 82553; 83036; 83605; 84484; 85025; 85652; 86140; 87040; 87149; 93005; 93010; 96361; 96365; 96367; 96372; J0696; J1650; J1815; J3370; J7050

== ENCOUNTER 2018-07-28 18:44 | Emergency (ER) | payer BC ==
[2018-07-28] MEDS ORDERED: Morphine 4 MG/ML VIAL ONE (20:15)
[2018-07-28] MEDS ORDERED: Ketorolac Tromethamine 30 MG/ML VIAL ONE (20:15)
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
== END 2018-07-28 21:39 | disposition home or self-care (01) ==
LOC: ERS 18:44
DX: S82.64XA Nondisplaced fracture of lateral malleolus of right fibula, initial encounter for closed fracture (principal); E11.9 Type 2 diabetes mellitus without complications; I10 Essential (primary) hypertension; E78.5 Hyperlipidemia, unspecified; Z79.899 Other long term (current) drug therapy; Z79.891 Long term (current) use of opiate analgesic; Z79.84 Long term (current) use of oral hypoglycemic drugs; V09.9XXA Pedestrian injured in unspecified transport accident, initial encounter
CPT/HCPCS: 29515; 96372; J1885; J2270

== ENCOUNTER 2018-07-31 21:32 | Emergency (ER) | payer BC | END 2018-07-31 22:10 | disposition home or self-care (01) | LOC: ERS 21:32 | DX: E11.40 Type 2 diabetes mellitus with diabetic neuropathy, unspecified (principal); I10 Essential (primary) hypertension; E78.5 Hyperlipidemia, unspecified; Z79.84 Long term (current) use of oral hypoglycemic drugs; Z79.899 Other long term (current) drug therapy; Z79.891 Long term (current) use of opiate analgesic | CPT/HCPCS: 99283 ==

== ENCOUNTER 2018-08-10 19:55 | Inpatient (IN) | payer BC ==
[2018-08-10 20:45] LABS: #Eosinphils 0.1 thou/uL (0.0-0.7); #Lymphocytes 1.2 thou/uL (1.20-3.40); #Monocytes 0.5 thou/uL (0.11-0.59); #Neutrophils 6.1 thou/uL (1.40-6.50); %Basophils 0.5 % (0.0-1.0); %Eosinophils 0.9 % (0.0-10.0); %Lymphocytes 15.5 % (21.0-51.0); %Monocytes 6.6 % (0.0-10.0); %Neutrophils 76.5 % (42.0-75.0); Hemoglobin 12.7 g/dL (12.0-16.0); Mean Corpuscular HGB CONC 31.9 g/dL (32.0-36.0); Mean Corpuscular Hemoglobin 28.2 pg (27.0-31.0); Mean Corpuscular Volume 88.5 fL (78.0-98.0); Mean Platelet Volume 6.7 fL (7.4-10.4); Platelet Count 331 thou/uL (130-400); RBC Distribution Width 12.6 % (11.5-14.5); Red Blood Cell (RBC) Count 4.49 mill/uL (4.20-5.40); White Blood Cell (WBC) Count 7.9 thou/uL (4.8-10.8)
[2018-08-10 21:10] LABS: ALT (SGPT) 15 U/L (8-55); AST (SGOT) 11 U/L (5-34); Alkaline Phosphatase 154 U/L (40-150); Anion Gap 14 mmol/L (10-20); BUN (Urea Nitrogen) 16 mg/dL (9.8-20.1); Bilirubin, Total 0.6 mg/dL (0.2-1.2); Calc. Creatinine Clearance 0 mL/min (70-130); Carbon Dioxide 26 mmol/L (22-29); Chloride 95 mmol/L (98-107); Estimated GFR-MDRD 45; Globulin 4.5 g/dL (2.4-3.5); Potassium 4.2 mmol/L (3.5-5.1); Protein, Total 7.5 g/dL (6.0-8.3); Sodium 131 mmol/L (136-145)
[2018-08-10 21:18] LABS: Glucose 608 mg/dL (70-105)
[2018-08-10] MEDS ORDERED: Morphine 10 MG/ML VIAL ONE (21:21)
[2018-08-10] MEDS ORDERED: Ondansetron ODT 4 MG TAB ONE (21:21)
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
[2018-08-10] MEDS ORDERED: Insulin Regular 300 UNITS/3 ML VIAL ONE (21:36)
[2018-08-10] MEDS ORDERED: Piperacillin/Tazobactam 3.375 GM VIAL ONE (21:36)
[2018-08-10] MEDS ORDERED: Vancomycin HCl 1.25 GM in Sodium Chloride 0.9% 250 ML 250 ML IVPB SCH (22:15)
[2018-08-10 23:54] VITALS: BMI 40.2
[2018-08-11 05:00] LABS: #Basophils 0.1 thou/uL (0.0-0.2); #Eosinphils 0.1 thou/uL (0.0-0.7); #Lymphocytes 1.7 thou/uL (1.20-3.40); #Monocytes 0.7 thou/uL (0.11-0.59); #Neutrophils 7.7 thou/uL (1.40-6.50); %Basophils 0.5 % (0.0-1.0); %Eosinophils 1.4 % (0.0-10.0); %Lymphocytes 16.9 % (21.0-51.0); %Monocytes 6.4 % (0.0-10.0); %Neutrophils 74.7 % (42.0-75.0); Hemoglobin 11.2 g/dL (12.0-16.0); Mean Corpuscular HGB CONC 32.3 g/dL (32.0-36.0); Mean Corpuscular Hemoglobin 28.1 pg (27.0-31.0); Mean Corpuscular Volume 86.9 fL (78.0-98.0); Mean Platelet Volume 6.6 fL (7.4-10.4); Platelet Count 289 thou/uL (130-400); RBC Distribution Width 12.4 % (11.5-14.5); Red Blood Cell (RBC) Count 3.97 mill/uL (4.20-5.40); White Blood Cell (WBC) Count 10.3 thou/uL (4.8-10.8)
[2018-08-11 05:20] LABS: Anion Gap 8 mmol/L (10-20); BUN (Urea Nitrogen) 17 mg/dL (9.8-20.1); Calc. Creatinine Clearance 107 mL/min (70-130); Calcium 8.1 mg/dL (7.8-10.44); Carbon Dioxide 28 mmol/L (22-29); Chloride 101 mmol/L (98-107); Estimated GFR-MDRD 68; Glucose 335 mg/dL (70-105); Potassium 4.1 mmol/L (3.5-5.1); Sodium 133 mmol/L (136-145)
[2018-08-11] MEDS ORDERED: Sodium Chloride 0.9% 1,000 ML IV SCH ×2 (05:48→08:40)
[2018-08-11] MEDS ORDERED: Ondansetron PF 4 MG/2 ML Vial IVP PRN (05:48)
[2018-08-11] MEDS ORDERED: Acetaminophen 325 MG TAB PO PRN (05:48)
[2018-08-11] MEDS ORDERED: Ondansetron ODT 4 MG TAB SL PRN (05:48)
[2018-08-11] MEDS ORDERED: Ibuprofen 800 MG TAB PO SCH (06:00)
[2018-08-11] MEDS ORDERED: Ibuprofen 800 MG TAB PO PRN (06:10)
[2018-08-11] MEDS: Piperacillin/Tazobactam 3.375 GM in Sodium Chloride 0.9% 100 ML IVPB SCH ×3 (06:26→18:24)
[2018-08-11] MEDS ORDERED: traMADol HCl 50 MG TAB PO PRN (08:11)
[2018-08-11] MEDS ORDERED: Dextrose 50% Abboject 50 ML SYRINGE SLOW IVP PRN (08:20)
[2018-08-11] MEDS ORDERED: Dextrose 5% in Water 1,000 ML IV PRN (08:20)
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
[2018-08-11] MEDS: Gabapentin 300 MG CAP PO SCH ×2 (09:51→19:38)
[2018-08-11] MEDS: Lisinopril 5 MG TAB PO SCH (09:51)
[2018-08-11] MEDS: Aspirin 81 mg Enteric Coated Tablet PO SCH (09:51)
[2018-08-11] MEDS: Enoxaparin Sodium 40 MG/0.4 ML SYRINGE SC SCH (09:52)
[2018-08-11] MEDS: Insulin Regular 300 UNITS/3 ML VIAL SC PRN ×2 (12:02→17:34)
[2018-08-11] MEDS: HYDROcodone/Acetaminophen 5/325 mg Tablet PO PRN ×2 (12:39→18:25)
[2018-08-11] MEDS: glipiZIDE 5 MG TAB PO SCH (17:34)
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
[2018-08-11] MEDS: Atorvastatin Calcium 20 MG TAB PO SCH (19:38)
[2018-08-11] MEDS ORDERED: Non-Formulary Item 1 EACH (Insulin Glargine,Hum.Rec.Anlog [Lantus Solostar] 15 UNIT) SC SCH (21:00)
[2018-08-11] MEDS ORDERED: Insulin Glargine 30 UNITS in Pre-Filled Syringe 1 EACH SC SCH (21:00)
[2018-08-11] MEDS ORDERED: Insulin Glargine 15 UNITS in Pre-Filled Syringe 1 EACH SC SCH (21:00)
[2018-08-11] MEDS ORDERED: Non-Formulary Item 1 EACH (Insulin Glargine,Hum.Rec.Anlog [Lantus Solostar] 30 UNIT) SC SCH (21:00)
[2018-08-12] MEDS: Piperacillin/Tazobactam 3.375 GM in Sodium Chloride 0.9% 100 ML IVPB SCH ×4 (00:51→17:57)
[2018-08-12] MEDS: HYDROcodone/Acetaminophen 5/325 mg Tablet PO PRN ×2 (06:35→23:13)
[2018-08-12] MEDS: glipiZIDE 5 MG TAB PO SCH ×2 (08:52→16:48)
[2018-08-12] MEDS: Aspirin 81 mg Enteric Coated Tablet PO SCH (08:52)
[2018-08-12] MEDS: Enoxaparin Sodium 40 MG/0.4 ML SYRINGE SC SCH (08:52)
[2018-08-12] MEDS: Lisinopril 5 MG TAB PO SCH (08:56)
[2018-08-12] MEDS: Gabapentin 300 MG CAP PO SCH ×2 (08:58→23:13)
--- NOTE | 2018-08-12 09:21 | PRG ---
DATE OF SERVICE: 08/12/2018 SUBJECTIVE: The patient is seen and examined at the bedside. She complains about the pain since we changed her pain medications yesterday from ibuprofen to Vicodin. She has probably more pain since , but otherwise she is feeling okay, does not have much more complaints to offer. OBJECTIVE: VITAL SIGNS: Blood pressure is 130/85, pulse is 84, temperature is 98.5, respiratory rate is 18, O2 saturation is 93% on room air. HEENT: Head is atraumatic, normocephalic. Eyes are PERRLA. Sclerae nonicteric. Oral mucosa is [address] NECK: Supple, no lymphadenopathy. Thyroid is not palpable. LUNGS: Clear. HEART: S1, S2 normal, no S3, no S4, no murmur. ABDOMEN: Soft, nontender. Bowel sounds are present, no organomegaly. EXTREMITIES: Right foot local examination is not changed since yesterday. No swelling above the ank le. The foot is bruised. NEURO: She is alert and oriented x4. There is not any motor deficit. Cranial nerves are intact. LABORATORY: Glycemia is ranging from 244-355. IMPRESSION: 1. Right foot wound with swelling and mild cellulitis. The patient was seen by Dr. Srivastava yester day, her orthopedic surgeon, who recommends to do the debridement of this foot since it is not healin g properly. Also, he is planning to put most likely a VAC in place. 2. Uncontrolled diabetes. Her metformin was stopped, but she is n.p.o. until she has the surgery, s o I plan to increase her long-acting insulin, Lantus to 20 units tonight from 15, she received last night. We are still holding her metformin and we will continue her glipizide. 3. Hyperlipidemia. 4. Hypertension. 5. Status post left kidney removal. 6. Normocytic anemia, most likely related to her diabetes mellitus. PLAN: The plan is to do debridement today by orthopedic surgeon. Continue Zosyn, continue her curre nt regimen with lisinopril, glipizide, 20 units of insulin Glargine at night, aspirin, atorvastatin, and tramadol p.r.n. for the pain. We will continue DVT prophylaxis with Lovenox 40 mg subcutaneously .
[2018-08-12] MEDS ORDERED: Lidocaine 1% PF 5 ML VIAL ONE (09:23)
[2018-08-12] MEDS ORDERED: PROPOFOL 200 MG/20 ML VIAL ONE (09:23)
[2018-08-12] MEDS ORDERED: PHENYLEPHRINE-NS 100 MCG/ML 10 ML SYRINGE ONE (09:23)
[2018-08-12] MEDS ORDERED: Ondansetron PF 4 MG/2 ML Vial ONE (09:23)
[2018-08-12] MEDS: Insulin Regular 300 UNITS/3 ML VIAL SC PRN (13:19)
[2018-08-12] MEDS ORDERED: Midazolam HCl 2 mg/2 ml Vial ONE (21:21)
[2018-08-12] MEDS ORDERED: Fentanyl 100 MCG/2 ML VIAL ONE (21:21)
[2018-08-12] MEDS ORDERED: Promethazine HCl 25 MG/ML VIAL SLOW IVP PRN (22:09)
[2018-08-12] MEDS ORDERED: Promethazine HCl 25 MG/ML VIAL IM PRN (22:09)
[2018-08-12] MEDS ORDERED: Ondansetron HCl/PF 4 MG/2 ML Vial IVP PRN (22:09)
[2018-08-12] MEDS: Insulin Glargine 20 UNITS in Pre-Filled Syringe 1 EACH SC SCH (23:13)
[2018-08-12] MEDS: Atorvastatin Calcium 20 MG TAB PO SCH (23:15)
[2018-08-13] MEDS: Piperacillin/Tazobactam 3.375 GM in Sodium Chloride 0.9% 100 ML IVPB SCH ×4 (00:10→17:26)
[2018-08-13] MEDS ORDERED: Ibuprofen 200 MG TAB PO SCH (02:45)
[2018-08-13 06:28] LABS: Anion Gap 9 mmol/L (10-20); BUN (Urea Nitrogen) 13 mg/dL (9.8-20.1); Calc. Creatinine Clearance 112 mL/min (70-130); Calcium 8.5 mg/dL (7.8-10.44); Carbon Dioxide 28 mmol/L (22-29); Chloride 101 mmol/L (98-107); Estimated GFR-MDRD 72; Glucose 138 mg/dL (70-105); Potassium 3.9 mmol/L (3.5-5.1); Sodium 134 mmol/L (136-145)
--- NOTE | 2018-08-13 08:06 | PRG ---
DATE OF SERVICE: 08/13/2018 SUBJECTIVE: The patient is seen and examined at the bedside. She is doing better. She had a debrid ement done last night by Dr. Srivastava. Today she is supposed to have a wound VAC placed. OBJECTIVE: VITAL SIGNS: Blood pressure 113/73, pulse is 78, O2 saturation is 92% on room air, pulse oximetry is 92% on room air, respiratory rate is 16. HEENT: Head is atraumatic, normocephalic. Eyes are PERRLA. Sclerae nonicteric. Oral mucosa is [address] NECK: Supple, no lymphadenopathy. Thyroid is not palpable. LUNGS: Clear. HEART: S1, S2 normal, no S3, no S4, no murmur. ABDOMEN: Soft, nontender, bowel sounds are present, no organomegaly. EXTREMITIES: Right foot is dressed. NEUROLOGIC: She is alert and oriented x4. There is not any sensorimotor deficits present. Cranial nerves are intact. LABORATORY DATA: Showed sodium of 134, potassium 3.9, chloride 101, CO2 28, BUN 13, creatinine 0.82, glucose is ranging from 143-175. Microbiology: Gram stain showed many WBCs, RBCs present, many gra m positive cocci in clusters. Culture is pending. ASSESSMENT AND PLAN: 1. Right foot wound with cellulitis, status post debridement. The Gram stain is showing some bacter ia, many gram positive cocci in clusters most likely a Staphylococcus. The patient is on Zosyn, so s he is covered for methicillin-sensitive Staphylococcus aureus, not for methicillin-resistant Staphylo coccus aureus, but clinically nothing suggested that she is going to have methicillin-resistant Staph ylococcus aureus, so we will continue Zosyn IV and pain management. 2. Uncontrolled diabetes. The patient's glycemia is gradually going down to 170s with increased dos e of Lantus and sliding scale before each meal. We will continue glipizide and her metformin is on h old. 3. Hyperlipidemia. 4. Hypertension, stable. 5. Status post left kidney removal. 6. Normocytic anemia. PLAN: As mentioned above. Today, she is going to have wound VAC placed. We will continue Zosyn, co ntinue her current regimen with lisinopril, glipizide, insulin, Glargine 20 units at night, aspirin, atorvastatin, and tramadol p.r.n. Deep venous thrombosis prophylaxis with Lovenox and she will be go ing home soon most likely in the next 24-48 hours.
[2018-08-13] MEDS: glipiZIDE 5 MG TAB PO SCH ×2 (08:48→17:26)
[2018-08-13] MEDS: Gabapentin 300 MG CAP PO SCH ×2 (08:48→20:31)
[2018-08-13] MEDS: Aspirin 81 mg Enteric Coated Tablet PO SCH (08:48)
[2018-08-13] MEDS: Ibuprofen 200 MG TAB PO SCH ×2 (08:49→20:31)
[2018-08-13] MEDS: Enoxaparin Sodium 40 MG/0.4 ML SYRINGE SC SCH (08:49)
[2018-08-13] MEDS: Lisinopril 5 MG TAB PO SCH (08:49)
[2018-08-13] MEDS: Insulin Regular 300 UNITS/3 ML VIAL SC PRN ×2 (12:37→17:26)
[2018-08-13] MEDS: HYDROcodone/Acetaminophen 5/325 mg Tablet PO PRN (13:29)
[2018-08-13] MEDS: Insulin Glargine 20 UNITS in Pre-Filled Syringe 1 EACH SC SCH (20:30)
[2018-08-13] MEDS: Atorvastatin Calcium 20 MG TAB PO SCH (20:31)
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
[2018-08-14] MEDS: Piperacillin/Tazobactam 3.375 GM in Sodium Chloride 0.9% 100 ML IVPB SCH ×5 (00:11→23:47)
[2018-08-14] MEDS: Gabapentin 300 MG CAP PO SCH ×2 (08:11→20:24)
[2018-08-14] MEDS: Ibuprofen 200 MG TAB PO SCH ×2 (08:11→20:24)
[2018-08-14] MEDS: glipiZIDE 5 MG TAB PO SCH ×2 (08:11→16:13)
[2018-08-14] MEDS: Lisinopril 5 MG TAB PO SCH (08:11)
[2018-08-14] MEDS: Aspirin 81 mg Enteric Coated Tablet PO SCH (08:11)
[2018-08-14] MEDS: Enoxaparin Sodium 40 MG/0.4 ML SYRINGE SC SCH (08:13)
--- NOTE | 2018-08-14 09:26 | PQF ---
DATE: 08-13-18 ATTN : DR. JAKE WELDON Please exercise your independent, professional judgment in responding to the clarification form. Clinical indicators are provided on the bottom of this form for your review Please check appropriate box(s): [ ] Acute Renal Failure (ARF) / Acute Kidney Injury (GINNY) [ ] Insignificant Lab Values [ ] Other diagnosis [ ] Unable to determine In addition, please specify: Present on Admission (POA): [ ] Yes [ ] No [ ] Unable to determine National Kidney Foundation Guidelines for CKD Staging Stage I Kidney damage with normal or increased GFR GFR > 90 Stage II Kidney damage with mildly decreased GFR GFR 60-89 Stage III Kidney damage with moderately decreased GFR GFR 30-59 Stage IV Kidney damage with severely decreased GFR GFR 16-29 Stage V Kidney failure GFR<15 ESRD End Stage Renal Disease On dialysis Acute Renal Failure/Acute Kidney Failure defined as: Increases in SCr by (>) 0.3 mg/dl within 48 hours OR- Increases in SCr by (>) 1.5 times baseline, known or presumed to have occurred within the prior 7 days OR- Urine volume < 0.5 ml/kg/hour for 6 hours (KDIGO supplement 2012 for RIFLE/SHAHNAZ criteria) For continuity of documentation, please document condition throughout progress notes and discharge summary. Thank You. CLINICAL INDICATORS - SIGNS / SYMPTOMS / LABS GFR: 08-10-18: 45 08-11-18: 68 08-13-18: 72 CREATININE: 08-10-18: 1.22 08-11-18: 0.86 08-13-18: 0.82 BUN: 08-10-18: 16 08-11-18: 17 08-13-18: 13 ER: H/O RENAL CANCER, DM 2, HTN H&P: H/O LEFT KIDNEY REMOVAL DUE TO KIDNEY CANCER RISK FACTORS: H&P: H/O LEFT KIDNEY REMOVAL DUE TO KIDNEY CANCER, SHE HAD PAIN WHICH RESPONDED TO IBUPROFEN 800MG TAKING Q4-6 HRS NEEDED. ER: H/O RENAL CANCER, DM 2, HTN TREATMENTS: ER: NS IVF (This form is maintained as a part of the permanent medical record) 2014 [employer], [employer]. All Rights Reserved [email or web address] Office: [phone] [facility] HOSPITALJuli
--- NOTE | 2018-08-14 12:48 | PRG ---
DATE OF SERVICE: 08/14/2018 SUBJECTIVE: The patient is seen and examined at bedside. She still has some complaints about the ri ght foot, but the pain is significantly decreased. OBJECTIVE: VITAL SIGNS: Blood pressure is 114/79, pulse is 72, respiratory rate is 16, O2 saturation 95% on josé m air, temperature is 97.8. HEENT: Head is atraumatic, normocephalic. Eyes are PERRLA. Sclerae nonicteric. Oral mucosa is [address]. NECK: Supple, no lymphadenopathy. Thyroid is not palpable. LUNGS: Lungs are clear. HEART: S1, S2 normal, no S3, no S4, no murmur. ABDOMEN: Soft, nontender, bowel sounds are present, no organomegaly. EXTREMITIES: Right foot is dressed and the wound VAC is in place. NEUROLOGIC: She is alert and oriented x4. There is not any sensorimotor deficit. Cranial nerves ar e intact. LABORATORY DATA: Showed a glycemia ranging from 133-227. Bacterial culture of the wound showed many WBCs, RBCs present, many gram positive cocci in clusters, coagulase negative Staphylococcus, quantif ication many, acid fast bacilli smear of the foot did not show any acid fast bacilli. Culture is pen ding. IMPRESSION: 1. Right foot posttraumatic necrosis, abscess and cellulitis status post debridement. Culture is gr owing Staphylococcus. We will continue on Zosyn until we have a more clear picture of what is causin g this infection. 2. Diabetes mellitus significantly improved on 20 units of insulin Glargine plus sliding scale. Acc u-Cheks down to 130s today. 3. Hyperlipidemia. 4. Hypertension. 5. Status post left kidney removal. 6. Normocytic anemia. PLAN: 1. The wound VAC was placed, will continue her Zosyn for now. 2. We will continue her insulin glargine 20 units at night along with aspirin, atorvastatin, Glipizi de, lisinopril and tramadol p.r.n. 3. Deep venous thrombosis prophylaxis with Lovenox and continue wound care.
[2018-08-14] MEDS: HYDROcodone/Acetaminophen 5/325 mg Tablet PO PRN ×2 (16:11→20:23)
[2018-08-14] MEDS: Insulin Regular 300 UNITS/3 ML VIAL SC PRN (17:26)
[2018-08-14] MEDS: Insulin Glargine 20 UNITS in Pre-Filled Syringe 1 EACH SC SCH (20:24)
[2018-08-14] MEDS: Atorvastatin Calcium 20 MG TAB PO SCH (20:24)
[2018-08-15] MEDS: HYDROcodone/Acetaminophen 5/325 mg Tablet PO PRN ×2 (00:57→20:08)
[2018-08-15] MEDS: Piperacillin/Tazobactam 3.375 GM in Sodium Chloride 0.9% 100 ML IVPB SCH ×3 (05:33→17:55)
[2018-08-15] MEDS: Insulin Regular 300 UNITS/3 ML VIAL SC PRN ×2 (05:37→17:10)
[2018-08-15] MEDS: Gabapentin 300 MG CAP PO SCH ×2 (08:21→20:09)
[2018-08-15] MEDS: Ibuprofen 200 MG TAB PO SCH ×2 (08:21→20:09)
[2018-08-15] MEDS: Aspirin 81 mg Enteric Coated Tablet PO SCH (08:21)
[2018-08-15] MEDS: Lisinopril 5 MG TAB PO SCH (08:21)
[2018-08-15] MEDS: Enoxaparin Sodium 40 MG/0.4 ML SYRINGE SC SCH (08:22)
[2018-08-15] MEDS: glipiZIDE 5 MG TAB PO SCH ×2 (08:22→17:09)
--- NOTE | 2018-08-15 13:11 | PDOC.PN ---
- Subjective Encounter Start Date: 08/15/18 Encounter Start Time: 11:20 Subjective: feels better, no sob -: is amb in room - Objective MAR Reviewed: Yes Vital Signs & Weight: Vital Signs (12 hours) Temp Pulse Resp BP BP Pulse Ox 08/15/18 08:21 74 130/74 08/15/18 08:00 94 L 08/15/18 07:25 98.0 F 74 18 130/84 94 L Weight Admit Weight 206 lb 4 oz Weight 206 lb 4 oz I&O: 08/14/18 08/15/18 08/16/18 06:59 06:59 06:59 Intake Total 1280 700 Balance 1280 700 Result Diagrams: 08/11/18 04:38 08/13/18 03:50 Additional Labs: Accuchecks 08/15/18 08/15/18 08/14/18 11:25 04:15 19:41 POC Glucose 163 H 207 H 262 H 08/14/18 17:06 POC Glucose 228 H Phys Exam - Physical Examination HEENT: PERRLA, moist MMs Neck: no JVD, supple Respiratory: no wheezing, no rales Cardiovascular: RRR, no significant murmur Gastrointestinal: soft, non-tender, positive bowel sounds Musculoskeletal: pulses present right foot in wound vac Neurological: non-focal, moves all 4 limbs Psychiatric: normal affect, A&O x 3 Dx/Plan (1) Foot abscess, right Code(s): L02.611 - CUTANEOUS ABSCESS OF RIGHT FOOT Status: Acute Comment: s/ p debridement, wound vac (2) DM type 2 (diabetes mellitus, type 2) Status: Chronic Qualifiers: Diabetes mellitus mcfp insulin use: with termite inspector use Diabetes mellitus complication status: with unspecified complications Qualified Code(s) : E11.8 - Type 2 diabetes mellitus with unspecified complications; Z79.4 - moth exterminator (current) use of insulin (3) Dyslipidemia Code(s): E78.5 - HYPERLIPIDEMIA, UNSPECIFIED Status: Chronic (4) Hypertension Code(s): I10 - ESSENTIAL (PRIMARY) HYPERTENSION Status: Chronic Qualifiers: Hypertension type: essential hypertension Qualified Code(s): I10 - Essential (primary) hypertension - Plan is on zosyn, wound care -: needs outpt wound vac, wound care and HH -: on asp, lipitor, lisinopril -: lantus, glipizide -: ultram, motrin for pain, to amb as tolerated * . Review of Systems - Medications/Allergies Allergies/Adverse Reactions: Allergies Allergy/AdvReac Type Severity Reaction Status Date / Time morphine Allergy Verified 08/12/18 17:50 tramadol AdvReac Emesis Verified 08/13/18 02:23 Medications: Current Medications Hydrocodone Bitart/Acetaminophen ([place] 5/325) 1 tab PO Q4H PRN PRN Reason: PAIN 6-10 Last Admin: 08/15/18 00:57 Dose: 1 tab Aspirin (Ecotrin) 81 mg PO DAILY [facility] Last Admin: 08/15/18 08:21 Dose: 81 mg Atorvastatin Calcium (Lipitor) 20 mg PO [facility] Last Admin: 08/14/18 20:24 Dose: 20 mg Dextrose/Water (Dextrose 50%) 25 gm SLOW IVP PRN PRN PRN Reason: Hypoglycemia Enoxaparin Sodium (Lovenox) 40 mg SC 0900 [facility] Last Admin: 08/15/18 08:22 Dose: Not Given Gabapentin (Neurontin) 300 mg PO BID [facility] Last Admin: 08/15/18 08:21 Dose: 300 mg Glipizide (Glucotrol) 5 mg PO BID-AC [facility] Last Admin: 08/15/18 08:22 Dose: 5 mg Glucagon (Glucagon) 1 mg IM PRN PRN PRN Reason: Hypoglycemia Piperacillin Sod/Tazobactam (Sod 3.375 gm/ Sodium Chloride) 100 mls @ 200 mls/ hr IVPB Q6HR [facility] Last Admin: 08/15/18 12:45 Dose: 100 mls Dextrose/Water (D5w) 1,000 mls @ 0 mls/hr IV .Q0M PRN PRN Reason: Hypoglycemia Insulin Glargine 20 units/ (Miscellaneous Medication) 0.2 mls @ 0 mls/hr SC [facility] Last Admin: 08/14/18 20:24 Dose: 0.2 mls Ibuprofen (Motrin) 400 mg PO BID [facility] Last Admin: 08/15/18 08:21 Dose: 400 mg Insulin Human Regular (Humulin R) 0 units SC .MODERATE SLIDING SC PRN PRN Reason: Moderate Correctional Scale Last Admin: 08/15/18 05:37 Dose: 4 unit Lisinopril (Zestril) 5 mg PO DAILY [facility] Last Admin: 08/15/18 08:21 Dose: 5 mg Sodium Chloride (Flush - Normal Saline) 10 ml IVF Q12HR [facility] Last Admin: 08/15/18 08:23 Dose: 10 ml Sodium Chloride (Flush - Normal Saline) 10 ml IVF PRN PRN PRN Reason: Saline Flush Tramadol HCl (Ultram) 100 mg PO Q4H PRN PRN Reason: Mild-Moderate Pain (1-5)
[2018-08-15] MEDS: Atorvastatin Calcium 20 MG TAB PO SCH (20:09)
[2018-08-15] MEDS: Insulin Glargine 20 UNITS in Pre-Filled Syringe 1 EACH SC SCH (20:15)
[2018-08-16] MEDS: Piperacillin/Tazobactam 3.375 GM in Sodium Chloride 0.9% 100 ML IVPB SCH ×5 (00:25→20:13)
[2018-08-16] MEDS: Enoxaparin Sodium 40 MG/0.4 ML SYRINGE SC SCH (09:47)
[2018-08-16] MEDS: Lisinopril 5 MG TAB PO SCH (09:47)
[2018-08-16] MEDS: Gabapentin 300 MG CAP PO SCH ×2 (09:47→20:13)
[2018-08-16] MEDS: Aspirin 81 mg Enteric Coated Tablet PO SCH (09:47)
[2018-08-16] MEDS: glipiZIDE 5 MG TAB PO SCH ×2 (09:47→17:34)
[2018-08-16] MEDS: Ibuprofen 200 MG TAB PO SCH ×2 (09:47→20:15)
--- NOTE | 2018-08-16 10:43 | PDOC.PN ---
- Subjective Encounter Start Date: 08/16/18 Encounter Start Time: 07:45 Subjective: no sob or pain -: is amb in room - Objective MAR Reviewed: Yes Vital Signs & Weight: Vital Signs (12 hours) Temp Pulse Resp BP BP Pulse Ox 08/16/18 09:47 65 148/90 H 08/16/18 07:44 98.0 F 65 20 148/90 H 97 08/16/18 07:40 99.0 F 88 20 129/78 93 L Weight Admit Weight 206 lb 4 oz Weight 206 lb 4 oz I&O: 08/15/18 08/16/18 08/17/18 06:59 06:59 06:59 Intake Total 700 680 Balance 700 680 Result Diagrams: 08/11/18 04:38 08/13/18 03:50 Additional Labs: Accuchecks 08/16/18 08/15/18 08/15/18 05:18 20:13 16:14 POC Glucose 114 H 290 H 217 H 08/15/18 11:25 POC Glucose 163 H Phys Exam - Physical Examination HEENT: PERRLA, moist MMs Neck: no JVD, supple Respiratory: no wheezing, no rales Cardiovascular: RRR, no significant murmur Gastrointestinal: soft, non-tender, positive bowel sounds Musculoskeletal: pulses present right foot in wound vac Neurological: non-focal, moves all 4 limbs Psychiatric: normal affect, A&O x 3 Dx/Plan (1) Foot abscess, right Code(s): L02.611 - CUTANEOUS ABSCESS OF RIGHT FOOT Status: Acute Comment: s/ p debridement, wound vac (2) DM type 2 (diabetes mellitus, type 2) Status: Chronic Qualifiers: Diabetes mellitus care home insulin use: with care home use Diabetes mellitus complication status: with unspecified complications Qualified Code(s) : E11.8 - Type 2 diabetes mellitus with unspecified complications; Z79.4 - local company intermodal truck driver (current) use of insulin (3) Dyslipidemia Code(s): E78.5 - HYPERLIPIDEMIA, UNSPECIFIED Status: Chronic (4) Hypertension Code(s): I10 - ESSENTIAL (PRIMARY) HYPERTENSION Status: Chronic Qualifiers: Hypertension type: essential hypertension Qualified Code(s): I10 - Essential (primary) hypertension - Plan await outpt wound vac and HH set up -: is on zosyn, may switch to augmentin for dc planning -: on lantus, glimepride, lisinopril, asp and lipitor -: ultram prn -: to amb as tolerated * . Review of Systems - Medications/Allergies Allergies/Adverse Reactions: Allergies Allergy/AdvReac Type Severity Reaction Status Date / Time morphine Allergy Verified 08/12/18 17:50 tramadol AdvReac Emesis Verified 08/13/18 02:23 Medications: Current Medications Hydrocodone Bitart/Acetaminophen ([place] 5/325) 1 tab PO Q4H PRN PRN Reason: PAIN 6-10 Last Admin: 08/15/18 20:08 Dose: 1 tab Aspirin (Ecotrin) 81 mg PO DAILY [facility] Last Admin: 08/16/18 09:47 Dose: 81 mg Atorvastatin Calcium (Lipitor) 20 mg PO [facility] Last Admin: 08/15/18 20:09 Dose: 20 mg Dextrose/Water (Dextrose 50%) 25 gm SLOW IVP PRN PRN PRN Reason: Hypoglycemia Enoxaparin Sodium (Lovenox) 40 mg SC 0900 [facility] Last Admin: 08/16/18 09:47 Dose: Not Given Gabapentin (Neurontin) 300 mg PO BID [facility] Last Admin: 08/16/18 09:47 Dose: 300 mg Glipizide (Glucotrol) 5 mg PO BID-AC [facility] Last Admin: 08/16/18 09:47 Dose: 5 mg Glucagon (Glucagon) 1 mg IM PRN PRN PRN Reason: Hypoglycemia Piperacillin Sod/Tazobactam (Sod 3.375 gm/ Sodium Chloride) 100 mls @ 200 mls/ hr IVPB Q6HR [facility] Last Admin: 08/16/18 05:29 Dose: 100 mls Dextrose/Water (D5w) 1,000 mls @ 0 mls/hr IV .Q0M PRN PRN Reason: Hypoglycemia Insulin Glargine 20 units/ (Miscellaneous Medication) 0.2 mls @ 0 mls/hr SC [facility] Last Admin: 08/15/18 20:15 Dose: 0.2 mls Ibuprofen (Motrin) 400 mg PO BID [facility] Last Admin: 08/16/18 09:47 Dose: 400 mg Insulin Human Regular (Humulin R) 0 units SC .MODERATE SLIDING SC PRN PRN Reason: Moderate Correctional Scale Last Admin: 08/15/18 17:10 Dose: 4 unit Lisinopril (Zestril) 5 mg PO DAILY [facility] Last Admin: 08/16/18 09:47 Dose: 5 mg Sodium Chloride (Flush - Normal Saline) 10 ml IVF Q12HR [facility] Last Admin: 08/16/18 09:48 Dose: 10 ml Sodium Chloride (Flush - Normal Saline) 10 ml IVF PRN PRN PRN Reason: Saline Flush Tramadol HCl (Ultram) 100 mg PO Q4H PRN PRN Reason: Mild-Moderate Pain (1-5)
[2018-08-16] MEDS: Insulin Regular 300 UNITS/3 ML VIAL SC PRN (17:34)
[2018-08-16] MEDS: Insulin Glargine 20 UNITS in Pre-Filled Syringe 1 EACH SC SCH (20:13)
[2018-08-16] MEDS: Atorvastatin Calcium 20 MG TAB PO SCH (20:13)
[2018-08-16] MEDS ORDERED: Piperacillin/Tazobactam 3.375 GM in Sodium Chloride 0.9% 100 ML IVPB SCH (21:00)
[2018-08-17] MEDS: Piperacillin/Tazobactam 3.375 GM in Sodium Chloride 0.9% 100 ML IVPB SCH ×3 (03:07→14:31)
[2018-08-17] MEDS: Insulin Regular 300 UNITS/3 ML VIAL SC PRN ×3 (04:58→16:58)
[2018-08-17] MEDS: Lisinopril 5 MG TAB PO SCH (07:53)
[2018-08-17] MEDS: Aspirin 81 mg Enteric Coated Tablet PO SCH (07:53)
[2018-08-17] MEDS: glipiZIDE 5 MG TAB PO SCH ×2 (07:53→16:36)
[2018-08-17] MEDS: Gabapentin 300 MG CAP PO SCH ×2 (07:53→20:20)
[2018-08-17] MEDS: Ibuprofen 200 MG TAB PO SCH ×2 (07:53→20:20)
[2018-08-17] MEDS: Enoxaparin Sodium 40 MG/0.4 ML SYRINGE SC SCH (07:54)
[2018-08-17 10:14] LABS: Fungus Stain Final report (.)
--- NOTE | 2018-08-17 10:45 | PDOC.PN ---
- Subjective Encounter Start Date: 08/17/18 Encounter Start Time: 08:15 Subjective: no pain, is amb in room - Objective MAR Reviewed: Yes Vital Signs & Weight: Vital Signs (12 hours) Temp Pulse Resp BP Pulse Ox 08/17/18 08:00 94 L 08/17/18 07:54 97.8 F 75 18 152/88 H 94 L Weight Admit Weight 206 lb 4 oz Weight 206 lb 4 oz I&O: 08/16/18 08/17/18 08/18/18 06:59 06:59 06:59 Intake Total 680 1940 Balance 680 1940 Result Diagrams: 08/11/18 04:38 08/13/18 03:50 Additional Labs: Accuchecks 08/17/18 08/16/18 08/16/18 04:57 20:12 16:16 POC Glucose 165 H 258 H 210 H 08/16/18 11:36 POC Glucose 152 H Phys Exam - Physical Examination HEENT: PERRLA, moist MMs Neck: no JVD, supple Respiratory: no wheezing, no rales Cardiovascular: RRR, no significant murmur Gastrointestinal: soft, non-tender, positive bowel sounds Musculoskeletal: no edema, pulses present right foot in wound vac Neurological: non-focal, moves all 4 limbs Psychiatric: normal affect, A&O x 3 Dx/Plan (1) Foot abscess, right Code(s): L02.611 - CUTANEOUS ABSCESS OF RIGHT FOOT Status: Acute Comment: has extensive dorsal foot deroofing, s/p debridement, wound vac (2) DM type 2 (diabetes mellitus, type 2) Status: Chronic Qualifiers: Diabetes mellitus mcfp insulin use: with mcfp use Diabetes mellitus complication status: with unspecified complications Qualified Code(s) : E11.8 - Type 2 diabetes mellitus with unspecified complications; Z79.4 - FDC (current) use of insulin (3) Dyslipidemia Code(s): E78.5 - HYPERLIPIDEMIA, UNSPECIFIED Status: Chronic (4) Hypertension Code(s): I10 - ESSENTIAL (PRIMARY) HYPERTENSION Status: Chronic Qualifiers: Hypertension type: essential hypertension Qualified Code(s): I10 - Essential (primary) hypertension - Plan ID consult, pt expecting to see her -: cm for arrangement of wound vac, wound care and hh -: dc plan per ortho advice -: is on zosyn, asp, glipizide, lantus and lisinopril -: ultram prn for pain * . Review of Systems - Medications/Allergies Allergies/Adverse Reactions: Allergies Allergy/AdvReac Type Severity Reaction Status Date / Time morphine Allergy Verified 08/12/18 17:50 tramadol AdvReac Emesis Verified 08/13/18 02:23 Medications: Current Medications Hydrocodone Bitart/Acetaminophen ([place] 5/325) 1 tab PO Q4H PRN PRN Reason: PAIN 6-10 Last Admin: 08/15/18 20:08 Dose: 1 tab Aspirin (Ecotrin) 81 mg PO DAILY [facility] Last Admin: 08/17/18 07:53 Dose: 81 mg Atorvastatin Calcium (Lipitor) 20 mg PO [facility] Last Admin: 08/16/18 20:13 Dose: 20 mg Dextrose/Water (Dextrose 50%) 25 gm SLOW IVP PRN PRN PRN Reason: Hypoglycemia Enoxaparin Sodium (Lovenox) 40 mg SC 0900 [facility] Last Admin: 08/17/18 07:54 Dose: Not Given Gabapentin (Neurontin) 300 mg PO BID [facility] Last Admin: 08/17/18 07:53 Dose: 300 mg Glipizide (Glucotrol) 5 mg PO BID-AC [facility] Last Admin: 08/17/18 07:53 Dose: 5 mg Glucagon (Glucagon) 1 mg IM PRN PRN PRN Reason: Hypoglycemia Dextrose/Water (D5w) 1,000 mls @ 0 mls/hr IV .Q0M PRN PRN Reason: Hypoglycemia Insulin Glargine 20 units/ (Miscellaneous Medication) 0.2 mls @ 0 mls/hr SC [facility] Last Admin: 08/16/18 20:13 Dose: 0.2 mls Piperacillin Sod/Tazobactam (Sod 3.375 gm/ Sodium Chloride) 100 mls @ 200 mls/ hr IVPB 0300,0900,1500,2100 [facility] Last Admin: 08/17/18 07:52 Dose: 100 mls Ibuprofen (Motrin) 400 mg PO BID [facility] Last Admin: 08/17/18 07:53 Dose: 400 mg Insulin Human Regular (Humulin R) 0 units SC .MODERATE SLIDING SC PRN PRN Reason: Moderate Correctional Scale Last Admin: 08/17/18 04:58 Dose: 2 unit Lisinopril (Zestril) 5 mg PO DAILY [facility] Last Admin: 08/17/18 07:53 Dose: 5 mg Sodium Chloride (Flush - Normal Saline) 10 ml IVF Q12HR [facility] Last Admin: 08/17/18 07:58 Dose: 10 ml Sodium Chloride (Flush - Normal Saline) 10 ml IVF PRN PRN PRN Reason: Saline Flush Tramadol HCl (Ultram) 100 mg PO Q4H PRN PRN Reason: Mild-Moderate Pain (1-5)
--- NOTE | 2018-08-17 10:52 | PQF ---
DATE: 08-17-18 ATTN: DR. JAKE WELDON/ DR. STEVE MOHAMUD Please exercise your independent, professional judgment in responding to the clarification form. Clinical indicators are provided on the bottom of this form for your review Please check appropriate box(s): [ ] Acute Renal Failure (ARF) / Acute Kidney Injury (GINNY) [ ] Insignificant Lab Values [ ] Other diagnosis [ x ] Unable to determine In addition, please specify: Present on Admission (POA): [ ] Yes [ ] No [ ] Unable to determine National Kidney Foundation Guidelines for CKD Staging Stage I Kidney damage with normal or increased GFR GFR > 90 Stage II Kidney damage with mildly decreased GFR GFR 60-89 Stage III Kidney damage with moderately decreased GFR GFR 30-59 Stage IV Kidney damage with severely decreased GFR GFR 16-29 Stage V Kidney failure GFR<15 ESRD End Stage Renal Disease On dialysis Acute Renal Failure/Acute Kidney Failure defined as: Increases in SCr by (>) 0.3 mg/dl within 48 hours OR- Increases in SCr by (>) 1.5 times baseline, known or presumed to have occurred within the prior 7 days OR- Urine volume < 0.5 ml/kg/hour for 6 hours (KDIGO supplement 2012 for RIFLE/SHAHNAZ criteria) For continuity of documentation, please document condition throughout progress notes and discharge summary. Thank You. CLINICAL INDICATORS - SIGNS / SYMPTOMS / LABS GFR: 08-10-18: 45 08-11-18: 68 08-13-18: 72 CREATININE: 08-10-18: 1.22 08-11-18: 0.86 08-13-18: 0.82 BUN: 08-10-18: 16 08-11-18: 17 08-13-18: 13 ER: H/O RENAL CANCER, DM 2, HTN H&P: H/O LEFT KIDNEY REMOVAL DUE TO KIDNEY CANCER RISK FACTORS: H&P: H/O LEFT KIDNEY REMOVAL DUE TO KIDNEY CANCER, SHE HAD PAIN WHICH RESPONDED TO IBUPROFEN 800MG TAKING Q4-6 HRS NEEDED. ER: H/O RENAL CANCER, DM 2, HTN TREATMENTS: ER: NS IVF (This form is maintained as a part of the permanent medical record) 2014 [employer], [employer]. All Rights Reserved RICO [email or web address] Office: [phone] ANY
[2018-08-17] MEDS ORDERED: Fentanyl 100 MCG/2 ML VIAL SLOW IVP PRN (11:38)
[2018-08-17] MEDS: cefTRIAXone\\ROCEPHIN 1 GM in Sodium Chloride 0.9% 100 ML IVPB SCH (16:55)
[2018-08-17] MEDS: Insulin Glargine 20 UNITS in Pre-Filled Syringe 1 EACH SC SCH (20:20)
[2018-08-17] MEDS: Atorvastatin Calcium 20 MG TAB PO SCH (20:20)
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
[2018-08-18] MEDS: Insulin Regular 300 UNITS/3 ML VIAL SC PRN ×4 (06:03→20:52)
[2018-08-18] MEDS: Enoxaparin Sodium 40 MG/0.4 ML SYRINGE SC SCH (08:14)
[2018-08-18] MEDS: Ibuprofen 200 MG TAB PO SCH ×2 (08:20→20:50)
[2018-08-18] MEDS: Lisinopril 5 MG TAB PO SCH (08:21)
[2018-08-18] MEDS: Aspirin 81 mg Enteric Coated Tablet PO SCH (08:21)
[2018-08-18] MEDS: Gabapentin 300 MG CAP PO SCH ×2 (08:21→20:51)
[2018-08-18] MEDS: glipiZIDE 5 MG TAB PO SCH ×2 (08:21→17:10)
--- NOTE | 2018-08-18 13:45 | PDOC.PN ---
- Subjective Encounter Start Date: 08/18/18 Encounter Start Time: 13:44 Subjective: right foot pain, wrapped in dressing, right 3rd toe amputation planned - Objective MAR Reviewed: Yes Vital Signs & Weight: Vital Signs (12 hours) Temp Pulse Resp BP BP Pulse Ox 08/18/18 08:21 71 157/93 H 08/18/18 08:00 96 08/18/18 07:58 97.6 F 71 20 157/93 H 96 Weight Admit Weight 206 lb 4 oz Weight 206 lb 4 oz I&O: 08/17/18 08/18/18 08/19/18 06:59 06:59 06:59 Intake Total 1939 1659 Balance 1939 1659 Result Diagrams: 08/11/18 04:38 08/13/18 03:50 Additional Labs: Accuchecks 08/18/18 08/18/18 08/17/18 11:55 04:49 19:52 POC Glucose 188 H 179 H 256 H 08/17/18 16:21 POC Glucose 161 H Phys Exam - Physical Examination HEENT: PERRLA, moist MMs, sclera anicteric, TM's clear, oral pharynx no lesions , 2+ tonsils Neck: no nodes, no JVD, supple, full ROM Respiratory: no wheezing, no rales, no rhonchi Cardiovascular: RRR, no significant murmur, no rub Gastrointestinal: soft, non-tender, no distention, positive bowel sounds right foot S/P debridiment wrapped in dressing Neurological: non-focal, normal sensation, moves all 4 limbs Psychiatric: normal affect, A&O x 3 Dx/Plan (1) Foot abscess, right Code(s): L02.611 - CUTANEOUS ABSCESS OF RIGHT FOOT Status: Acute Comment: has extensive dorsal foot deroofing, s/p debridement, wound vac, wund cx growing Staph, MSSA, On rocephin (2) DM type 2 (diabetes mellitus, type 2) Status: Chronic Qualifiers: Diabetes mellitus senior care insulin use: with senior care use Diabetes mellitus complication status: with unspecified complications Qualified Code(s) : E11.8 - Type 2 diabetes mellitus with unspecified complications; Z79.4 - residential (current) use of insulin Comment: Continue insulin (3) Dyslipidemia Code(s): E78.5 - HYPERLIPIDEMIA, UNSPECIFIED Status: Chronic (4) Hypertension Code(s): I10 - ESSENTIAL (PRIMARY) HYPERTENSION Status: Chronic Qualifiers: Hypertension type: essential hypertension Qualified Code(s): I10 - Essential (primary) hypertension Comment: Continue Lisinopril - Plan cont current plan of care, plan discussed w/ family, continue antibiotics * .
--- NOTE | 2018-08-18 16:53 | PRG ---
DATE OF SERVICE: 08/18/2018 SUBJECTIVE: The patient is doing fine. Minimal pain. She is containing her wound VAC. She is eati ng lunch currently. No complaints. OBJECTIVE: VITAL SIGNS: Temperature is 97.6, pulse 71, respiratory rate 20, blood pressure is 157/93. GENERAL: She is alert, sitting upright in no apparent distress. RESPIRATORY: Breathing comfortably. ABDOMEN: Soft, nontender, nondistended. MUSCULOSKELETAL: The patient's right foot has a necrotic appearance to the third toe. It is blacken ed and has no perfusion. Wound VAC is in place over the dorsal foot. She has intact sensation in th e first, second, fourth, and fifth toes. These appeared to be warm and well perfused. LABORATORY STUDIES: Hemoglobin is 11.2, white blood cell count is 10.3. IMPRESSION: Right foot dorsal necrosis and necrosis of the third toe after crush injury and subseque nt infection in a diabetic female. PLAN: The patient will need to go to surgery tomorrow. We will plan for repeat irrigation and debri klever of the wounds as well as amputation of the third toe. She will be n.p.o. after breakfast zara rrow morning as surgery will likely be at approximately 4:00 p.m. She is aware of plan and wants to proceed. Continue intravenous antibiotics.
[2018-08-18] MEDS: cefTRIAXone\\ROCEPHIN 1 GM in Sodium Chloride 0.9% 100 ML IVPB SCH (18:07)
[2018-08-18] MEDS: Atorvastatin Calcium 20 MG TAB PO SCH (20:49)
[2018-08-18] MEDS: Insulin Glargine 20 UNITS in Pre-Filled Syringe 1 EACH SC SCH (20:52)
[2018-08-18] MEDS: HYDROcodone/Acetaminophen 5/325 mg Tablet PO PRN (23:10)
[2018-08-19] MEDS: Aspirin 81 mg Enteric Coated Tablet PO SCH (07:37)
[2018-08-19] MEDS: Enoxaparin Sodium 40 MG/0.4 ML SYRINGE SC SCH (07:37)
[2018-08-19] MEDS: glipiZIDE 5 MG TAB PO SCH ×2 (09:09→17:16)
[2018-08-19] MEDS: Ibuprofen 200 MG TAB PO SCH ×2 (09:10→20:01)
[2018-08-19] MEDS: Gabapentin 300 MG CAP PO SCH ×2 (09:10→20:01)
[2018-08-19] MEDS: Lisinopril 5 MG TAB PO SCH (09:11)
--- NOTE | 2018-08-19 14:30 | PDOC.PN ---
- Subjective Encounter Start Date: 08/19/18 Encounter Start Time: 14:29 Subjective: SLEEPY, AWAITING SURGERY - Objective Vital Signs & Weight: Vital Signs (12 hours) Temp Pulse Resp BP BP Pulse Ox 08/19/18 12:51 97.8 F 68 14 140/86 93 L 08/19/18 09:11 69 140/86 08/19/18 08:19 97.5 F L 69 18 140/86 97 08/19/18 08:00 97.5 F L 69 Weight Admit Weight 206 lb 4 oz Weight 206 lb 4 oz I&O: 08/18/18 08/19/18 08/20/18 06:59 06:59 06:59 Intake Total 1660 1120 Balance 1660 1120 Result Diagrams: 08/11/18 04:38 08/13/18 03:50 Additional Labs: Accuchecks 08/19/18 08/19/18 08/18/18 11:37 05:19 19:38 POC Glucose 103 133 H 232 H 08/18/18 16:54 POC Glucose 167 H Phys Exam - Physical Examination HEENT: PERRLA, moist MMs, sclera anicteric, TM's clear, oral pharynx no lesions , 2+ tonsils Neck: no nodes, no JVD, supple, full ROM Respiratory: no wheezing, no rales, no rhonchi Cardiovascular: RRR, no significant murmur, no rub Gastrointestinal: soft, non-tender, no distention RIGHT FOOT S/P debridement, covered in dressing Neurological: non-focal, normal sensation, moves all 4 limbs Psychiatric: normal affect, A&O x 3 Dx/Plan (1) Foot abscess, right Code(s): L02.611 - CUTANEOUS ABSCESS OF RIGHT FOOT Status: Acute Comment: has extensive dorsal foot deroofing, s/p debridement, wound cx growing Staph, MSSA, On rocephin. Repeat debridement and right 3rd toe amputation planned for 08/19 (2) DM type 2 (diabetes mellitus, type 2) Status: Chronic Qualifiers: Diabetes mellitus shelter insulin use: with terminal system operator use Diabetes mellitus complication status: with unspecified complications Qualified Code(s) : E11.8 - Type 2 diabetes mellitus with unspecified complications; Z79.4 - alf (current) use of insulin Comment: Continue insulin (3) Dyslipidemia Code(s): E78.5 - HYPERLIPIDEMIA, UNSPECIFIED Status: Chronic (4) Hypertension Code(s): I10 - ESSENTIAL (PRIMARY) HYPERTENSION Status: Chronic Qualifiers: Hypertension type: essential hypertension Qualified Code(s): I10 - Essential (primary) hypertension Comment: Continue Lisinopril - Plan * .
[2018-08-19] MEDS ORDERED: Fentanyl 100 MCG/2 ML VIAL ONE (16:23)
[2018-08-19] MEDS ORDERED: Promethazine HCl 25 MG/ML VIAL IM PRN (17:14)
[2018-08-19] MEDS ORDERED: Promethazine HCl 25 MG/ML VIAL SLOW IVP PRN (17:14)
[2018-08-19] MEDS ORDERED: Ondansetron HCl/PF 4 MG/2 ML Vial IVP PRN (17:14)
[2018-08-19] MEDS ORDERED: Lidocaine 1% PF 5 ML VIAL ONE (17:21)
[2018-08-19] MEDS ORDERED: Succinylcholine Chloride 20 MG/ML 10 ml SYRINGE FS ONE (17:21)
[2018-08-19] MEDS ORDERED: Ondansetron PF 4 MG/2 ML Vial ONE (17:21)
[2018-08-19] MEDS ORDERED: PHENYLEPHRINE-NS 100 MCG/ML 10 ML SYRINGE ONE (17:21)
[2018-08-19] MEDS ORDERED: PROPOFOL 200 MG/20 ML VIAL ONE (17:21)
[2018-08-19] MEDS: cefTRIAXone\\ROCEPHIN 1 GM in Sodium Chloride 0.9% 100 ML IVPB SCH (18:09)
[2018-08-19] MEDS: Atorvastatin Calcium 20 MG TAB PO SCH (20:01)
[2018-08-19] MEDS: Insulin Glargine 20 UNITS in Pre-Filled Syringe 1 EACH SC SCH (20:02)
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
[2018-08-20] MEDS: HYDROcodone/Acetaminophen 5/325 mg Tablet PO PRN ×2 (03:11→23:36)
[2018-08-20] MEDS: Insulin Regular 300 UNITS/3 ML VIAL SC PRN ×3 (05:04→17:04)
[2018-08-20] MEDS: glipiZIDE 5 MG TAB PO SCH ×2 (07:33→16:57)
[2018-08-20] MEDS: Lisinopril 5 MG TAB PO SCH (09:14)
[2018-08-20] MEDS: Aspirin 81 mg Enteric Coated Tablet PO SCH (09:14)
[2018-08-20] MEDS: Ibuprofen 200 MG TAB PO SCH ×2 (09:14→21:28)
[2018-08-20] MEDS: Gabapentin 300 MG CAP PO SCH ×2 (09:15→21:28)
[2018-08-20] MEDS: Enoxaparin Sodium 40 MG/0.4 ML SYRINGE SC SCH (09:16)
--- NOTE | 2018-08-20 15:14 | PDOC.PN ---
- Subjective Encounter Start Date: 08/20/18 Encounter Start Time: 11:30 Subjective: pt in bed no complains but did not even open her eyes - Objective Vital Signs & Weight: Vital Signs (12 hours) Temp Pulse Resp BP BP BP Pulse Ox 08/20/18 11:00 97.7 F 66 16 123/78 94 L 08/20/18 09:14 80 166/88 H 08/20/18 08:00 97.7 F 80 16 166/88 H 94 L Weight Admit Weight 206 lb 4 oz Weight 206 lb 4 oz I&O: 08/19/18 08/20/18 08/21/18 06:59 06:59 06:59 Intake Total 1120 740 240 Balance 1120 740 240 Result Diagrams: 08/11/18 04:38 08/13/18 03:50 Additional Labs: Accuchecks 08/20/18 08/20/18 08/19/18 11:29 03:12 19:53 POC Glucose 169 H 282 H 136 H 08/19/18 18:19 POC Glucose 96 Phys Exam - Physical Examination Neck: no nodes, no JVD, supple, full ROM Respiratory: no wheezing, no rales, no rhonchi, wheezing present, clear to auscultation bilateral Cardiovascular: RRR, no significant murmur, no rub, gallop, irregular Gastrointestinal: soft, non-tender, no distention, positive bowel sounds parul wrap to right foot Dx/Plan (1) Foot abscess, right Code(s): L02.611 - CUTANEOUS ABSCESS OF RIGHT FOOT Status: Acute Comment: has extensive dorsal foot deroofing, s/p debridement, wound cx growing Staph, MSSA, On rocephin. Repeat debridement and right 3rd toe amputation planned for 08/19 (2) DM type 2 (diabetes mellitus, type 2) Status: Chronic Qualifiers: Diabetes mellitus termite inspector insulin use: with correction use Diabetes mellitus complication status: with unspecified complications Qualified Code(s) : E11.8 - Type 2 diabetes mellitus with unspecified complications; Z79.4 - prison (current) use of insulin Comment: Continue insulin - Plan will continue abx -: switch to po per ID on discharge -: pt's blood sugars stable. will increase her lisinopril to 20mg -: will check labs in am * . Review of Systems - Review of Systems ENT: negative: Ear Pain, Ear Discharge, Nose Pain, Nose Discharge, Nose Congestion, Mouth Pain, Mouth Swelling, Throat Pain, Throat Swelling, Other Cardiovascular: negative: chest pain, palpitations, orthopnea, paroxysmal nocturnal dyspnea, edema, light headedness, other Gastrointestinal: negative: Nausea, Vomiting, Abdominal Pain, Diarrhea, Constipation, Melena, Hematochezia, Other Genitourinary: negative: Dysuria, Frequency, Incontinence, Hematuria, Retention , Other - Medications/Allergies Allergies/Adverse Reactions: Allergies Allergy/AdvReac Type Severity Reaction Status Date / Time morphine Allergy Verified 08/12/18 17:50 tramadol AdvReac Emesis Verified 08/13/18 02:23 Medications: Current Medications Hydrocodone Bitart/Acetaminophen ([place] 5/325) 1 tab PO Q4H PRN PRN Reason: PAIN 6-10 Last Admin: 08/20/18 03:11 Dose: 1 tab Aspirin (Ecotrin) 81 mg PO DAILY [facility] Last Admin: 08/20/18 09:14 Dose: 81 mg Atorvastatin Calcium (Lipitor) 20 mg PO [facility] Last Admin: 08/19/18 20:01 Dose: 20 mg Dextrose/Water (Dextrose 50%) 25 gm SLOW IVP PRN PRN PRN Reason: Hypoglycemia Enoxaparin Sodium (Lovenox) 40 mg SC 0900 [facility] Last Admin: 08/20/18 09:16 Dose: Not Given Fentanyl (Sublimaze) 50 mcg SLOW IVP Q2H PRN PRN Reason: dressing changes Last Admin: 08/17/18 11:45 Dose: 50 mcg Gabapentin (Neurontin) 300 mg PO BID [facility] Last Admin: 08/20/18 09:15 Dose: 300 mg Glipizide (Glucotrol) 5 mg PO BID-AC [facility] Last Admin: 08/20/18 07:33 Dose: 5 mg Glucagon (Glucagon) 1 mg IM PRN PRN PRN Reason: Hypoglycemia Dextrose/Water (D5w) 1,000 mls @ 0 mls/hr IV .Q0M PRN PRN Reason: Hypoglycemia Insulin Glargine 20 units/ (Miscellaneous Medication) 0.2 mls @ 0 mls/hr SC [facility] Last Admin: 08/19/18 20:02 Dose: Not Given Ceftriaxone Sodium 1 gm/ (Sodium Chloride) 100 mls @ 200 mls/hr IVPB Q24HR [facility] Last Admin: 08/19/18 18:09 Dose: 100 mls Ibuprofen (Motrin) 400 mg PO BID [facility] Last Admin: 08/20/18 09:14 Dose: 400 mg Insulin Human Regular (Humulin R) 0 units SC .MODERATE SLIDING SC PRN PRN Reason: Moderate Correctional Scale Last Admin: 08/20/18 13:05 Dose: 2 unit Lisinopril (Zestril) 5 mg PO DAILY [facility] Last Admin: 08/20/18 09:14 Dose: 5 mg Sodium Chloride (Flush - Normal Saline) 10 ml IVF Q12HR [facility] Last Admin: 08/20/18 09:15 Dose: 10 ml Sodium Chloride (Flush - Normal Saline) 10 ml IVF PRN PRN PRN Reason: Saline Flush
[2018-08-20] MEDS: cefTRIAXone\\ROCEPHIN 1 GM in Sodium Chloride 0.9% 100 ML IVPB SCH (16:56)
[2018-08-20 19:28] VITALS: TEMP 97.8
[2018-08-20] MEDS: Atorvastatin Calcium 20 MG TAB PO SCH (21:28)
[2018-08-20] MEDS: Insulin Glargine 20 UNITS in Pre-Filled Syringe 1 EACH SC SCH (21:29)
[2018-08-21 04:45] LABS: #Eosinphils 0.2 thou/uL (0.0-0.7); #Lymphocytes 2.3 thou/uL (1.20-3.40); #Monocytes 0.5 thou/uL (0.11-0.59); #Neutrophils 3.9 thou/uL (1.40-6.50); %Basophils 0.6 % (0.0-1.0); %Eosinophils 2.6 % (0.0-10.0); %Lymphocytes 33.6 % (21.0-51.0); %Monocytes 6.4 % (0.0-10.0); %Neutrophils 56.7 % (42.0-75.0); Hemoglobin 10.2 g/dL (12.0-16.0); Mean Corpuscular HGB CONC 32.1 g/dL (32.0-36.0); Mean Corpuscular Hemoglobin 28.3 pg (27.0-31.0); Mean Corpuscular Volume 88.3 fL (78.0-98.0); Mean Platelet Volume 6.4 fL (7.4-10.4); Platelet Count 357 thou/uL (130-400); RBC Distribution Width 13.1 % (11.5-14.5); Red Blood Cell (RBC) Count 3.59 mill/uL (4.20-5.40); White Blood Cell (WBC) Count 6.9 thou/uL (4.8-10.8)
[2018-08-21 04:51] LABS: Anion Gap 10 mmol/L (10-20); BUN (Urea Nitrogen) 24 mg/dL (9.8-20.1); Calc. Creatinine Clearance 92 mL/min (70-130); Calcium 8.9 mg/dL (7.8-10.44); Carbon Dioxide 30 mmol/L (22-29); Chloride 104 mmol/L (98-107); Estimated GFR-MDRD 57; Glucose 316 mg/dL (70-105); Potassium 4.7 mmol/L (3.5-5.1); Sodium 139 mmol/L (136-145)
[2018-08-21] MEDS: Insulin Regular 300 UNITS/3 ML VIAL SC PRN ×2 (05:13→12:17)
[2018-08-21 07:30] VITALS: BP 127/79
[2018-08-21] MEDS: Gabapentin 300 MG CAP PO SCH (08:28)
[2018-08-21] MEDS: Ibuprofen 200 MG TAB PO SCH (08:28)
[2018-08-21] MEDS: glipiZIDE 5 MG TAB PO SCH (08:28)
[2018-08-21] MEDS: Aspirin 81 mg Enteric Coated Tablet PO SCH (08:28)
[2018-08-21] MEDS: Enoxaparin Sodium 40 MG/0.4 ML SYRINGE SC SCH (08:31)
[2018-08-21] MEDS ORDERED: Lisinopril 20 MG TAB PO SCH (09:00)
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
[2018-08-22] MEDS ORDERED: Insulin Glargine 24 UNITS in Pre-Filled Syringe 1 EACH SC SCH (09:00)
== END 2018-08-21 16:43 | disposition home or self-care (01) | DRG 902 ==
LOC: ERS 19:55 → T4-A 23:02
PROVIDERS: ADMIT Internal Medicine; ATTEND Internal Medicine
PROC: 0J9Q0ZX Drainage of Right Foot Subcutaneous Tissue and Fascia, Open Approach, Diagnostic (ICD-10-PCS; 2018-08-12)
PROC: 0JBQ0ZZ Excision of Right Foot Subcutaneous Tissue and Fascia, Open Approach (ICD-10-PCS; principal; 2018-08-19)
PROC: 0Y6T0Z0 Detachment at Right 3rd Toe, Complete, Open Approach (ICD-10-PCS; 2018-08-19)
DX: S97.81XA Crushing injury of right foot, initial encounter (principal); L03.115 Cellulitis of right lower limb; E87.1 Hypo-osmolality and hyponatremia; I96 Gangrene, not elsewhere classified; L02.611 Cutaneous abscess of right foot; V03.90XA Pedestrian on foot injured in collision with car, pick-up truck or van, unspecified whether traffic or nontraffic accident, initial encounter; Y92.9 Unspecified place or not applicable; E11.65 Type 2 diabetes mellitus with hyperglycemia; I10 Essential (primary) hypertension; B95.61 Methicillin susceptible Staphylococcus aureus infection as the cause of diseases classified elsewhere; E78.5 Hyperlipidemia, unspecified; E11.40 Type 2 diabetes mellitus with diabetic neuropathy, unspecified; D64.9 Anemia, unspecified; H40.9 Unspecified glaucoma; Z85.528 Personal history of other malignant neoplasm of kidney; Z90.5 Acquired absence of kidney; Z90.49 Acquired absence of other specified parts of digestive tract; Z83.3 Family history of diabetes mellitus; Z84.1 Family history of disorders of kidney and ureter
CPT/HCPCS: 36415; 36416; 80048; 80053; 82010; 85025; 87070; 87077; 87102; 87116; 87186; 87205; 87206; 96365; 96367; 96375; J0696; J1650; J1815; J1956; J2001; J2250; J2270; J2405; J2543; J2704; J3010; J3370; J7050; Q0162

== ENCOUNTER 2018-09-11 06:06 | Day surgery (SDC) | payer BC ==
[2018-09-10 11:16] VITALS: BMI 40.0
[2018-09-11] MEDS ORDERED: Neomycin-Polymyxin 1 ML AMP ONE (06:43)
[2018-09-11] MEDS ORDERED: CEFAZOLIN 2 GM/50 ML BAG ONE (06:43)
[2018-09-11] MEDS ORDERED: Fentanyl 100 MCG/2 ML VIAL ONE (06:52)
[2018-09-11] MEDS ORDERED: HYDROcodone/Acetaminophen 5/325 mg Tablet ONE (10:09)
[2018-09-11] MEDS ORDERED: Lidocaine 1% PF 5 ML VIAL ONE (13:14)
[2018-09-11] MEDS ORDERED: Metoclopramide HCl 10 MG/2 ML VIAL ONE (13:14)
[2018-09-11] MEDS ORDERED: PHENYLEPHRINE-NS 100 MCG/ML 10 ML SYRINGE ONE (13:14)
[2018-09-11] MEDS ORDERED: PROPOFOL 200 MG/20 ML VIAL ONE (13:14)
[2018-09-11] MEDS ORDERED: Ondansetron PF 4 MG/2 ML Vial ONE (13:14)
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
--- NOTE | 2018-09-18 05:13 | PQF ---
[facility] POST DISCHARGE CLINICAL DOCUMENTATION IMPROVEMENT CLARIFICATION FORM l Todays Date: 09/17/18 l Patients Name FRANKLIN MC l l Admit Date 09/11/18 l Disch Date 09/11/18 Petroleum Engineer Name Mel Heide Mosley Email: @[employer] Cell: [phone] To be completed by Petroleum Engineer: Present Clinical Indicators - Signs / Symptoms Results and Location in Medical Record [ ] Documentation of: [ ] [ ] Documentation of: [ ] [ ] Documentation of: [ ] [ ] Documentation of: [ ] [ ] Risks [ ] [ ] [ ] Treatment [ ] DEBRIDMENT OF WOUND RIGHT FOOT QUERY FOR SIZE AREA OF DEBRIDMENT ON FOOT 4cm x 5 cm [ ] [ ] To be completed by Physician: ALISON CEE The documentation in this patients record requires clarification to ensure coding compliance and accuracy. Check the appropriate box and include in your discharge summary. [ ] [ ] [ ] [ ] Please check this box if this does not apply to this patient [ ] Unable to determine [ ] Other diagnosis: Review the following information and exercise your independent professional judgment in responding to the clarification. Based upon the clinical findings, risk factors, and treatment, please clarify if you are treating one of the above probable or suspected diagnoses. Physician Signature: Date Time MTDD
== END 2018-09-11 11:30 | disposition home or self-care (01) ==
LOC: SDC 06:06
PROVIDERS: ATTEND Orthopaedic Surgery
PROC: 0JDQ0ZZ Extraction of Right Foot Subcutaneous Tissue and Fascia, Open Approach (ICD-10-PCS; principal; 2018-09-11)
DX: S97.81XA Crushing injury of right foot, initial encounter (principal); S91.301A Unspecified open wound, right foot, initial encounter; E11.52 Type 2 diabetes mellitus with diabetic peripheral angiopathy with gangrene; I96 Gangrene, not elsewhere classified; I10 Essential (primary) hypertension; E78.00 Pure hypercholesterolemia, unspecified; Z79.4 Long term (current) use of insulin; Z79.82 Long term (current) use of aspirin; Z79.899 Other long term (current) drug therapy; Z88.5 Allergy status to narcotic agent; Z89.421 Acquired absence of other right toe(s); W23.0XXA Caught, crushed, jammed, or pinched between moving objects, initial encounter
CPT/HCPCS: J2001; J2405; J2704; J2765; J3010

== ENCOUNTER 2018-10-09 06:05 | Inpatient (IN) | payer BC ==
[2018-10-08 13:33] VITALS: BMI 36.1
[2018-10-09] MEDS ORDERED: CEFAZOLIN 2 GM/50 ML BAG ONE (06:29)
[2018-10-09] MEDS ORDERED: Fentanyl 100 MCG/2 ML VIAL ONE (07:53)
[2018-10-09] MEDS ORDERED: Milk Of Magnesia 30 ML UDCUP PO PRN (08:25)
[2018-10-09] MEDS ORDERED: Ondansetron PF 4 MG/2 ML Vial IV PRN (08:25)
[2018-10-09] MEDS ORDERED: Fentanyl 100 MCG/2 ML VIAL SLOW IVP PRN (08:25)
[2018-10-09] MEDS ORDERED: HYDROcodone/Acetaminophen 5/325 mg Tablet PO PRN (08:25)
[2018-10-09] MEDS ORDERED: CEFAZOLIN/Water 2 GM/20 ML SYRINGE SLOW IVP SCH (08:30)
[2018-10-09] MEDS ORDERED: cefTRIAXone\\ROCEPHIN 1 GM in Sodium Chloride 0.9% 100 ML IVPB SCH (08:30)
[2018-10-09] MEDS ORDERED: [UNRECOGNIZED DRUG - REMARK] FS SCH (08:30)
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
[2018-10-09 10:56] LABS: Anion Gap 13 mmol/L (10-20); BUN (Urea Nitrogen) 21 mg/dL (9.8-20.1); Calc. Creatinine Clearance 97 mL/min (70-130); Calcium 9.2 mg/dL (7.8-10.44); Carbon Dioxide 25 mmol/L (22-29); Chloride 104 mmol/L (98-107); Estimated GFR-MDRD 69; Glucose 141 mg/dL (70-105); Sodium 137 mmol/L (136-145)
[2018-10-09] MEDS ORDERED: Lidocaine 1% PF 5 ML VIAL ONE (12:37)
[2018-10-09] MEDS ORDERED: PROPOFOL 200 MG/20 ML VIAL ONE (12:37)
[2018-10-09] MEDS ORDERED: PHENYLEPHRINE-NS 100 MCG/ML 10 ML SYRINGE ONE (12:37)
[2018-10-09] MEDS ORDERED: Ondansetron PF 4 MG/2 ML Vial ONE (12:37)
[2018-10-09] MEDS ORDERED: ePHEDrine/0.9% NaCl/PF SYRINGE 50 mg/10 ml ONE (12:37)
[2018-10-09] MEDS: CEFAZOLIN 2 GM/50 ML-DEXTROSE 2 GM in Premix Bag 1 BAG IVPB SCH ×2 (14:13→21:34)
[2018-10-09] MEDS: Furosemide 40 MG TAB PO SCH (14:13)
[2018-10-09] MEDS: glipiZIDE 5 MG TAB PO SCH (17:56)
[2018-10-09] MEDS: Aspirin 81 mg Enteric Coated Tablet PO SCH ×2 (19:59→21:34)
[2018-10-09] MEDS ORDERED: Atorvastatin Calcium 20 MG TAB PO SCH (21:00)
[2018-10-09] MEDS ORDERED: Insulin Glargine 15 UNITS in Pre-Filled Syringe 1 EACH SC SCH (21:00)
[2018-10-09] MEDS: Gabapentin 300 MG CAP PO SCH (21:34)
[2018-10-09] MEDS ORDERED: Dextrose 5% in Water 1,000 ML IV PRN (22:33)
[2018-10-09] MEDS ORDERED: Dextrose 50% Abboject 50 ML SYRINGE IVP PRN (22:33)
[2018-10-09] MEDS ORDERED: Insulin Regular 300 UNITS/3 ML VIAL SC PRN ×2 (22:33→23:13)
--- NOTE | 2018-10-10 03:13 | PDOC.PN ---
- Subjective Encounter Start Date: 10/10/18 Encounter Start Time: 03:11 Pt seen for management of medical comorbidities, including diabetes mellitus. Denies chest pain, shortness of breath, fevers or chills. - Objective Vital Signs & Weight: Vital Signs (12 hours) Temp Pulse Resp BP Pulse Ox 10/09/18 21:34 97 10/09/18 21:14 98.2 F 97 16 151/82 H 97 Weight Weight 185 lb Result Diagrams: 10/09/18 06:23 Additional Labs: Accuchecks 10/09/18 10/09/18 10/09/18 21:45 16:00 10:57 POC Glucose 372 H 249 H 167 H 10/09/18 07:00 POC Glucose 142 H Phys Exam - Physical Examination Constitutional: NAD HEENT: moist MMs Neck: supple Respiratory: clear to auscultation bilateral Cardiovascular: RRR Gastrointestinal: soft Musculoskeletal: edema present Neurological: moves all 4 limbs Psychiatric: normal affect Deviation from normal: R foot dressing Dx/Plan (1) DM type 2 (diabetes mellitus, type 2) Status: Chronic Qualifiers: Comment: Blood sugars high. Switch sliding scale to moderate, continue Lantus insulin and glipizide. Follow accuchecks. (2) Hypertension Code(s): I10 - ESSENTIAL (PRIMARY) HYPERTENSION Status: Chronic Qualifiers: Comment: add PRN IV hydralazine for blood pressure spikes. Continue lisinopril. (3) Dyslipidemia Code(s): E78.5 - HYPERLIPIDEMIA, UNSPECIFIED Status: Chronic (4) Obesity (BMI 30-39.9) Code(s): E66.9 - OBESITY, UNSPECIFIED Status: Chronic - Plan * . s/p R 4th toe amputation. pain management and DVT prophylaxis per primary service. Review of Systems - Review of Systems Respiratory: negative: Cough, Shortness of Breath, SOB with Excertion, Pleuritic Pain, Sputum Cardiovascular: negative: chest pain, palpitations, orthopnea, paroxysmal nocturnal dyspnea, edema, light headedness - Medications/Allergies Allergies/Adverse Reactions: Allergies Allergy/AdvReac Type Severity Reaction Status Date / Time morphine Allergy Verified 10/08/18 13:33 tramadol AdvReac Emesis Verified 10/08/18 13:33 Medications: Current Medications Hydrocodone Bitart/Acetaminophen ([place] 5/325) 1 tab PO Q4H PRN PRN Reason: Moderate Pain (4-6) Last Admin: 10/09/18 23:25 Dose: 1 tab Aspirin (Ecotrin) 81 mg PO BID [facility] Last Admin: 10/09/18 21:34 Dose: 81 mg Atorvastatin Calcium (Lipitor) 20 mg PO HS [facility] Last Admin: 10/09/18 21:34 Dose: 20 mg Dextrose/Water (Dextrose 50%) 25 gm IVP PRN PRN PRN Reason: HYPOGLYCEMIA PROTOCOL Fentanyl (Sublimaze) 50 mcg SLOW IVP Q30M PRN PRN Reason: Severe breakthrough pain Furosemide (Lasix) 40 mg PO 0900,1400 [facility] Last Admin: 10/09/18 14:13 Dose: 40 mg Gabapentin (Neurontin) 300 mg PO BID [facility] Last Admin: 10/09/18 21:34 Dose: 300 mg Glipizide (Glucotrol) 5 mg PO BID-AC [facility] Last Admin: 10/09/18 17:56 Dose: 5 mg Glucagon (Glucagon) 1 mg IM PRN PRN PRN Reason: HYPOGLYCEMIA PROTOCOL Insulin Glargine 15 units/ (Miscellaneous Medication) 0.15 mls @ 0 mls/hr [facility] Last Admin: 10/09/18 21:46 Dose: 0.15 mls Dextrose/Water (D5w) 1,000 mls @ 0 mls/hr IV INF PRN PRN Reason: HYPOGLYCEMIA PROTOCOL Insulin Human Regular (Humulin R) 0 units SC .MODERATE SLIDING SC PRN; Protocol PRN Reason: MODERATE SLIDING SCALE Last Admin: 10/09/18 23:58 Dose: 10 unit Lisinopril (Zestril) 10 mg PO DAILY [facility] Magnesium Hydroxide (Milk Of Magnesium) 30 ml PO DAILY PRN PRN Reason: Constipation Ondansetron HCl (Zofran) 4 mg IV Q6H PRN PRN Reason: Nausea Sodium Chloride (Flush - Normal Saline) 10 ml IVF PRN PRN PRN Reason: Saline Flush
[2018-10-10] MEDS ORDERED: hydrALAZINE 20 MG/ML VIAL SLOW IVP PRN (03:15)
[2018-10-10] MEDS: glipiZIDE 5 MG TAB PO SCH (06:47)
[2018-10-10] MEDS ORDERED: Insulin Regular 300 UNITS/3 ML VIAL SC PRN (07:33)
[2018-10-10 08:03] VITALS: BP 115/77
[2018-10-10] MEDS: Aspirin 81 mg Enteric Coated Tablet PO SCH (08:53)
[2018-10-10] MEDS: Gabapentin 300 MG CAP PO SCH (08:54)
[2018-10-10] MEDS: Furosemide 40 MG TAB PO SCH (08:54)
[2018-10-10] MEDS ORDERED: Lisinopril 10 MG TAB PO SCH (09:00)
[2018-10-10 12:30] VITALS: TEMP 98.2
== END 2018-10-10 14:16 | disposition home health service (06) | DRG 940 ==
LOC: SDC 06:05 → SURG A 08:25
PROVIDERS: ADMIT Orthopaedic Surgery; ATTEND Orthopaedic Surgery
PROC: 0Y6V0Z0 Detachment at Right 4th Toe, Complete, Open Approach (ICD-10-PCS; principal; 2018-10-09)
DX: S97.81XD Crushing injury of right foot, subsequent encounter (principal); I96 Gangrene, not elsewhere classified; Z68.39 Body mass index [BMI] 39.0-39.9, adult; V09.9XXD Pedestrian injured in unspecified transport accident, subsequent encounter; Z89.421 Acquired absence of other right toe(s); E11.9 Type 2 diabetes mellitus without complications; I10 Essential (primary) hypertension; E78.5 Hyperlipidemia, unspecified; Z85.528 Personal history of other malignant neoplasm of kidney; Z90.5 Acquired absence of kidney; Z79.82 Long term (current) use of aspirin; E66.9 Obesity, unspecified
CPT/HCPCS: 36416; 80048; 88305; 88311; J0696; J3010; J7050

== ENCOUNTER 2018-11-17 11:08 | Outpatient (CLI) | payer OTHER ==
--- NOTE | 2018-11-17 12:24 | RAD ---
TWO VIEW RIGHT FOOT SERIES: Indication: TRC exam. Dorsal right foot wound. FINDINGS: Absence of the 3rd and 4th digits with osseous irregularity of the 3rd and 4th metatarsal heads. Ther e is soft tissue prominence in this region. There is focal osteopenia at the lateral aspect of the 1s t MTP joint. Scattered osseous calcification and soft tissue calcification is seen. Prominent calcane al enthesophyte formation is seen. IMPRESSION: 1. Absence of the 3rd and 4th digits with suspicion for osteomyelitis at the 3rd and 4th metatarsal h jm. Recommend clinical correlation. Imaging follow up with MRI or 3-phase bone scan may be obtained . 2. Focal nonspecific osteopenia at the lateral aspect of the first MTP joint. POS: MUNA
== END 2018-11-17 11:09 | disposition home or self-care (01) ==
LOC: BICRAD 11:08
PROVIDERS: ATTEND Internal Medicine
DX: Z02.71 Encounter for disability determination (principal); M85.871 Other specified disorders of bone density and structure, right ankle and foot

== ENCOUNTER 2019-01-27 13:45 | Emergency (ER) | payer BC, SELFPAY ==
--- NOTE | 2019-01-27 15:07 | RAD ---
PA AND LATERAL VIEWS CHEST: HISTORY: Cough and congestion. FINDINGS: Comparison is made with the exam of 07/30/2012. The heart size is normal. The lungs are expanded without focal areas of consolidation, pneumothorace s, or pleural effusions. There are degenerative changes in the spine. Postop changes are seen in th e left upper quadrant. IMPRESSION: No radiographic evidence of acute cardiopulmonary process. POS: OFF
== END 2019-01-27 16:06 | disposition home or self-care (01) ==
LOC: ERS 13:45
DX: J20.9 Acute bronchitis, unspecified (principal); E11.9 Type 2 diabetes mellitus without complications; E78.5 Hyperlipidemia, unspecified; I10 Essential (primary) hypertension; Z79.899 Other long term (current) drug therapy
CPT/HCPCS: 71046

== ENCOUNTER 2019-02-01 22:07 | Emergency (ER) | payer SELFPAY ==
[2019-02-01 22:42] LABS: #Basophils 0.1 thou/uL (0.0-0.2); #Eosinphils 0.1 thou/uL (0.0-0.7); #Lymphocytes 2.5 thou/uL (1.20-3.40); #Monocytes 0.7 thou/uL (0.11-0.59); #Neutrophils 3.2 thou/uL (1.40-6.50); %Basophils 0.9 % (0.0-1.0); %Eosinophils 1.2 % (0.0-10.0); %Lymphocytes 38.7 % (21.0-51.0); %Monocytes 10.1 % (0.0-10.0); %Neutrophils 49.1 % (42.0-75.0); Hemoglobin 14.8 g/dL (12.0-16.0); Mean Corpuscular HGB CONC 33.5 g/dL (32.0-36.0); Mean Corpuscular Hemoglobin 28.4 pg (27.0-31.0); Mean Corpuscular Volume 84.8 fL (78.0-98.0); Mean Platelet Volume 8.5 fL (7.4-10.4); Platelet Count 162 thou/uL (130-400); RBC Distribution Width 13.6 % (11.5-14.5); White Blood Cell (WBC) Count 6.6 thou/uL (4.8-10.8)
[2019-02-01 23:02] LABS: ALT (SGPT) 29 U/L (8-55); AST (SGOT) 22 U/L (5-34); Albumin 3.5 g/dL (3.5-5.0); Alkaline Phosphatase 141 U/L (40-150); Anion Gap 15 mmol/L (10-20); BUN (Urea Nitrogen) 32 mg/dL (9.8-20.1); Bilirubin, Total 0.5 mg/dL (0.2-1.2); Calc. Creatinine Clearance 0 mL/min (70-130); Calcium 9.4 mg/dL (7.8-10.44); Carbon Dioxide 23 mmol/L (22-29); Chloride 96 mmol/L (98-107); Estimated GFR-MDRD 38; Globulin 4.2 g/dL (2.4-3.5); Glucose 472 mg/dL (70-105); Potassium 4.4 mmol/L (3.5-5.1); Protein, Total 7.7 g/dL (6.0-8.3); Sodium 130 mmol/L (136-145)
[2019-02-01 23:08] LABS: Bilirubin Negative (Negative); Blood, Urine Moderate (Negative); Clarity CLEAR (Clear); Glucose, Urine (Dipstick) >=1000 mg/dL (Negative); Leukocyte Negative (Negative); Nitrite Negative (Negative); Protein, Urine (Dipstick) 300 mg/dL (Neg-Trace); Specific Gravity, Urine 1.029 (1.002-1.036); pH, Urine 5.5 (5.0-9.0)
[2019-02-01 23:10] LABS: Bacteria/HPF None Seen HPF (None Seen); Hyaline Casts/LPF 4-6 HYALINE CAST LPF (0-3 Hyaline); Pathc Cast-AUWi Flag 0.68 (0-2.49)
[2019-02-02] MEDS ORDERED: Insulin Regular 300 UNITS/3 ML VIAL ONE (00:56)
== END 2019-02-02 02:01 | disposition home or self-care (01) ==
LOC: ERS 22:07
DX: E11.65 Type 2 diabetes mellitus with hyperglycemia (principal); J20.9 Acute bronchitis, unspecified; H53.8 Other visual disturbances; E11.9 Type 2 diabetes mellitus without complications; E78.5 Hyperlipidemia, unspecified; Z79.899 Other long term (current) drug therapy; Z79.4 Long term (current) use of insulin
CPT/HCPCS: 36416; 80053; 81003; 81015; 82010; 84484; 85025; 93005; 96361; 96374; J1815

== ENCOUNTER 2019-02-02 22:49 | Inpatient (IN) | payer OTHER, SELFPAY ==
[~2019-02-02 22:49] MED LIST changes: +ISOVUE-370 76%-LOCM 1 ML ONE; -Iopamidol 370 76% 150 ML VIAL FS ONE
--- NOTE | 2019-02-02 23:12 | CT ---
CT brain noncontrast: HISTORY: Dysarthria and left facial droop have now resolved. FINDINGS: There is no evidence of acute intra-axial or extra-axial hemorrhage. There is no midline shift or any other mass effect. There is no extra-axial fluid collection. There is no evidence of obstructive hydrocephalus. Calvarium is intact. There is an extraocular implanted device at the superolateral asp ect of left orbit. IMPRESSION: No acute intracranial findings.
[2019-02-02 23:13] LABS: #Basophils 0.1 thou/uL (0.0-0.2); #Eosinphils 0.1 thou/uL (0.0-0.7); #Lymphocytes 2.9 thou/uL (1.20-3.40); #Monocytes 0.4 thou/uL (0.11-0.59); #Neutrophils 4.2 thou/uL (1.40-6.50); %Basophils 1.5 % (0.0-1.0); %Eosinophils 1.7 % (0.0-10.0); %Lymphocytes 36.9 % (21.0-51.0); %Monocytes 5.7 % (0.0-10.0); %Neutrophils 54.2 % (42.0-75.0); Hemoglobin 14.7 g/dL (12.0-16.0); Mean Corpuscular HGB CONC 33.5 g/dL (32.0-36.0); Mean Corpuscular Hemoglobin 28.3 pg (27.0-31.0); Mean Corpuscular Volume 84.4 fL (78.0-98.0); Mean Platelet Volume 8.3 fL (7.4-10.4); Platelet Count 190 thou/uL (130-400); RBC Distribution Width 13.8 % (11.5-14.5); White Blood Cell (WBC) Count 7.7 thou/uL (4.8-10.8)
[2019-02-02 23:19] LABS: PTT 27.3 SEC (22.9-36.1); Prothrombin Time 12.8 SEC (12.0-14.7)
[2019-02-02 23:29] LABS: ALT (SGPT) 28 U/L (8-55); AST (SGOT) 16 U/L (5-34); Albumin 3.4 g/dL (3.5-5.0); Alkaline Phosphatase 134 U/L (40-150); Anion Gap 14 mmol/L (10-20); BUN (Urea Nitrogen) 32 mg/dL (9.8-20.1); Bilirubin, Total 0.4 mg/dL (0.2-1.2); CK (CPK) 101 U/L (29-168); Calc. Creatinine Clearance 0 mL/min (70-130); Calcium 9.2 mg/dL (7.8-10.44); Carbon Dioxide 24 mmol/L (22-29); Chloride 100 mmol/L (98-107); Estimated GFR-MDRD 30; Globulin 3.9 g/dL (2.4-3.5); Glucose 293 mg/dL (70-105); Potassium 4.4 mmol/L (3.5-5.1); Protein, Total 7.3 g/dL (6.0-8.3); Sodium 134 mmol/L (136-145)
--- NOTE | 2019-02-02 23:55 | CT ---
CT ANGIOGRAM CERVICAL SPINE WITH CONTRAST: CT ANGIOGRAM OF BRAIN WITH AND WITHOUT CONTRAST: DATE: 02/02/2019 HISTORY: 58-year-old female with acute stroke symptoms TECHNIQUE: After IV contrast injection, arterial bolus chasing technique scan performed from aortopulmonic windo w to vertex of skull. Coronal and sagittal 3-D MIP reconstructions. FINDINGS: No high-grade stenosis or occlusion identified involving common carotid arteries, vertebral arteries, internal carotid arteries, or M1 segments of bilateral middle cerebral arteries. Anterior communicating artery. No intracranial aneurysm identified. origins of bilateral posterior cereb ral arteries. Normal caliber basilar artery. IMPRESSION: Negative
[2019-02-03] MEDS ORDERED: Aspirin Chewable 81 MG TAB ONE
--- NOTE | 2019-02-03 | RAD ---
Radiograph chest one view: HISTORY: 58-year-old female with unresponsiveness FINDINGS: The visualized lung venegas are clear. The cardiomediastinal silhouette is normal. No pneumothorax. Th e lateral costophrenic angles are sharp. IMPRESSION: No acute cardiopulmonary findings.
[2019-02-03] MEDS ORDERED: Dextrose 5% in Water 1,000 ML IV PRN (08:52)
[2019-02-03] MEDS ORDERED: Insulin Regular 300 UNITS/3 ML VIAL ONE (08:52)
[2019-02-03] MEDS ORDERED: Dextrose 50% Abboject 50 ML SYRINGE SLOW IVP PRN (08:52)
[2019-02-03] MEDS ORDERED: Enoxaparin Sodium 40 MG/0.4 ML SYRINGE SC SCH (09:00)
[2019-02-03] MEDS ORDERED: HumaLOG 300 UNITS/3 ML VIAL SC SCH (09:00)
[2019-02-03 09:56] LABS: Hemoglobin A1c 9.7 % (4.0-6.0)
[2019-02-03] MEDS: Sodium Chloride 0.9% 1,000 ML IV SCH ×2 (11:00→16:33)
--- NOTE | 2019-02-03 12:12 | HP ---
CHIEF COMPLAINT: Loss of consciousness. HISTORY OF PRESENT ILLNESS: The patient is a 58-year-old female who is admitted to the hospital after she had episode of loss of consciousness. Apparently, she was sitting in the living room and she does not remember what happened. Her consciousness came back while in the ambulance going to the hospital. Apparently, she lost her consciousness, and EMS was called. At the time of EMS evaluation, her blood pressure was 180/100. She was unresponsive. She had nonreactive left pupil to light. She was brought to the emergency room for further evaluation, and she regained her consciousness and her function completely and now she is getting admitted for further evaluation of her problem. Apparently, for the last 3 days, she has been getting spells of getting hot and lightheaded with some vertigo lasting approximately 10 to 15 minutes, and after that, she gets cold and she gets shivers and has some neck pain. Those spells happen several times a day. She feels tired and weak. PAST MEDICAL HISTORY: 1. Hypertension. 2. Diabetes mellitus type 2. 3. Hyperlipidemia. 4. Left eye glaucoma. 5. Blindness. 6. Right third toe gangrene. PAST SURGICAL HISTORY: 1. Right foot third and fourth toes amputation. 2. C-sections x2. 3. Left kidney removal due to kidney cancer. 4. Status post cholecystectomy. Surrogate decision maker is the patient's son Kg Daniels. The patient's primary care physician is Dr. Chava Robledo. FAMILY HISTORY: Mother and father of renal failure secondary to complication of diabetes mellitus. SOCIAL HISTORY: She does not drink. She does not use any illicit drugs. She does not smoke. She never smoked. ALLERGIES: TRAMADOL AND MORPHINE. REVIEW OF SYSTEMS: CONSTITUTIONAL: Negative for fever or chills. Positive for spells of hot and lightheadedness. EYES: Positive for loss of vision in the left eye. CARDIOVASCULAR: Negative for chest pain or palpitation. RESPIRATORY: Negative for shortness of breath. Positive for some cough. Apparently, she has some congestion in her upper respiratory airways for the last couple of weeks. GASTROINTESTINAL: Negative for nausea or vomiting. : Negative for polyuria. Negative for dysuria. PSYCHIATRIC: Negative for suicidal or homicidal ideations. MUSCULOSKELETAL: Positive for pain in her right foot on and off and pain in the neck on and off. NEUROLOGIC: Negative for focal signs. Positive for headaches after the spells of feeling hot and lightheaded. SKIN: Negative for rash. PHYSICAL EXAMINATION: VITAL SIGNS: Blood pressure is 128/79, pulse is 88, respiratory rate is 17, O2 saturation is 97% on room air. HEENT: Her head is atraumatic and normocephalic. Eyes are PERRLA. Sclerae are nonicteric. Oral mucosa is moist. Left pupil not responding to light. NECK: Supple. LUNGS: Clear. HEART: S1 and S2 normal. No S3. No S4. No any murmur. ABDOMEN: Soft, nontender, and obese. Bowel sounds are present. No organomegaly. EXTREMITIES: No clubbing, cyanosis, or edema. She has multiple scars on her right foot, but there is no any acute infectious process. NEUROLOGICAL: She is alert and oriented x4. There are no any motor or sensory deficits at this point. Cranial nerves are intact. LABORATORY DATA: Labs showed white count of 7.7, hemoglobin 14.7, hematocrit 43.9, platelet count is 190,000. INR 1.0. PT of 12.8. Sodium 134, potassium 4.4, chloride 100, CO2 of 24, BUN 32, creatinine 1.73, glucose 293, albumin 3.4, globulin 3.9, and the rest of chemistry within normal limits. DIAGNOSTIC DATA: Echocardiogram personally reviewed by me showed normal sinus rhythm, no ischemic changes. Ventricular rate is [address] of the brain personally reviewed by me did not show any acute abnormalities. CT of the [place], which is CT angiogram of the head with contrast did not show any abnormalities. Chest x-ray personally reviewed by me did not show any acute abnormalities. IMPRESSION: 1. Loss of consciousness of unclear etiology at this point, rule out seizures, rule out syncope, rule out transient ischemic attack. 2. Uncontrolled diabetes mellitus. 3. Recurrent spells of feeling hot and lightheaded, rule out pheochromocytoma. 4. Hypertension. 5. Hyperlipidemia. 6. Left eye glaucoma. 7. History of right foot gangrene and status post amputation of the third and fourth toes of the right foot. 8. Renal insufficiency. Her creatinine in 2018 was 1.0. PLAN: Admission for observation. Condition is fair. Activity is bedrest. Diabetic diet, 2000 calories. MRI of the brain. Doppler ultrasound of the carotid arteries. ECG. Neurology consult. Continue aspirin. Reconcile home medications. 24-hour urine collection for metanephrines to rule out pheochromocytoma. Diabetic sliding scale, mild. Accu-Cheks a.c. and at bedtime and insulin Lantus 27 units at bedtime. We will give her 10 units of short-acting insulin and Humalog right now since her sugar is 350. Also, we will obtain hemoglobin A1c. She claims that her blood sugar is running good at home. Job ID: [id number]
[2019-02-03] MEDS: Aspirin 325 mg Enteric Coated Tablet PO SCH (12:29)
[2019-02-03 15:34] VITALS: BMI 43.9
[2019-02-03] MEDS: HumaLOG 300 UNITS/3 ML VIAL SC PRN ×2 (16:33→21:13)
--- NOTE | 2019-02-03 17:29 | MRI ---
MRI BRAIN NONCONTRAST: HISTORY: 58-year-old female with dysarthria and left facial droop, stroke symptoms, TIA FINDINGS: The ventricles are normal in size and configuration. There is no major intra-axial signal abnormality , restricted diffusion, midline shift or any other mass effect, recent intra-axial hemorrhage, or extra-axial fluid collection. IMPRESSION: Normal
[2019-02-03] MEDS: Insulin Glargine 27 UNITS in Pre-Filled Syringe 1 EACH SC SCH (21:13)
[2019-02-04] MEDS: Sodium Chloride 0.9% 1,000 ML IV SCH (03:00)
[2019-02-04 05:02] LABS: #Basophils 0.1 thou/uL (0.0-0.2); #Eosinphils 0.1 thou/uL (0.0-0.7); #Lymphocytes 2.5 thou/uL (1.20-3.40); #Monocytes 0.3 thou/uL (0.11-0.59); #Neutrophils 2.8 thou/uL (1.40-6.50); %Basophils 0.9 % (0.0-1.0); %Eosinophils 2.4 % (0.0-10.0); %Lymphocytes 43.1 % (21.0-51.0); %Monocytes 5.8 % (0.0-10.0); %Neutrophils 47.8 % (42.0-75.0); Hemoglobin 13.2 g/dL (12.0-16.0); Mean Corpuscular HGB CONC 33.5 g/dL (32.0-36.0); Mean Corpuscular Hemoglobin 28.5 pg (27.0-31.0); Mean Corpuscular Volume 85.1 fL (78.0-98.0); Mean Platelet Volume 7.8 fL (7.4-10.4); Platelet Count 164 thou/uL (130-400); RBC Distribution Width 13.7 % (11.5-14.5); Red Blood Cell (RBC) Count 4.64 mill/uL (4.20-5.40); White Blood Cell (WBC) Count 5.8 thou/uL (4.8-10.8)
[2019-02-04 05:42] LABS: ALT (SGPT) 17 U/L (8-55); AST (SGOT) 11 U/L (5-34); Alkaline Phosphatase 116 U/L (40-150); Anion Gap 11 mmol/L (10-20); BUN (Urea Nitrogen) 28 mg/dL (9.8-20.1); Bilirubin, Total 0.4 mg/dL (0.2-1.2); Calc. Creatinine Clearance 90 mL/min (70-130); Calcium 8.7 mg/dL (7.8-10.44); Carbon Dioxide 25 mmol/L (22-29); Chloride 103 mmol/L (98-107); Estimated GFR-MDRD 55; Globulin 3.5 g/dL (2.4-3.5); Glucose 366 mg/dL (70-105); Potassium 4.1 mmol/L (3.5-5.1); Protein, Total 6.5 g/dL (6.0-8.3); Sodium 135 mmol/L (136-145)
[2019-02-04] MEDS: HumaLOG 300 UNITS/3 ML VIAL SC PRN ×4 (06:28→21:22)
--- NOTE | 2019-02-04 08:54 | EEG ---
Referring Physician: Maranda WELDON EEG # [id number] TEST TYPE: ROUTINE PORTABLE INPATIENT REPORT: AN EEG USING THE INTERNATIONAL TEN-TWENTY SYSTEM OF ELECTRODE PLACEMENT WAS PERFORMED. The waking background is an 8-9 hertz occipitally dominant Alpha frequency. The patient entered some drowsiness, butno sleep was seen. Photic stimulation was unremarkable. No epileptiform features were seen. IMPRESSION: THIS IS A NORMAL AWAKE AND DROWSY EEG. Deaf/Hard Of Hearing Specialist: KASSANDRA Sr Community Manager: EEG.ROSY AGARWAL
[2019-02-04] MEDS: Enoxaparin Sodium 30 MG/0.3 ML SYRINGE SC SCH (09:33)
[2019-02-04] MEDS: Aspirin 325 mg Enteric Coated Tablet PO SCH (09:34)
[2019-02-04] MEDS ORDERED: Insulin Glargine 20 UNITS in Pre-Filled Syringe 1 EACH SC SCH (10:00)
--- NOTE | 2019-02-04 12:55 | PRG ---
DATE OF SERVICE: 02/04/2019 SUBJECTIVE: The patient is seen and examined at the bedside. She had several spells of feeling hot and sweaty and dizzy since she got admitted to the hospital, which lasted approximately 10 to 15 minutes. OBJECTIVE: VITAL SIGNS: Blood pressure is 157/73, temperature is 98, pulse is 74, respiratory rate is 18, O2 saturation is 92% on room air. HEENT: Her head is atraumatic and normocephalic. Eyes are PERRLA. Sclerae are nonicteric. Oral mucosa is moist. NECK: Supple. LUNGS: Clear. HEART: S1, S2 normal. No S3. No S4. ABDOMEN: Soft, obese, nontender. EXTREMITIES: No clubbing, cyanosis, or edema. NEUROLOGICAL: She follows my commands. She moves all 4 extremities. There is no any motor deficits. LABORATORY DATA: Showed normal CBC. Sodium of 135, potassium 4.1, chloride 103, CO2 of 25, BUN 28, creatinine 1.04. Glycemia is ranging from 279 to 366. Hemoglobin A1c came back at 9.7, and albumin 3.0. MRI of the brain negative. Echocardiogram showed normal LVEF 55%, diastolic dysfunction. Left atrium is mildly dilated. There is mild mitral regurgitation and mild tricuspid regurgitation. EEG did not show any abnormalities. It is a normal awake and drowsy EEG. IMPRESSION: 1. Loss of consciousness of unclear etiology. Normal EEG, normal MRI, normal CT angiogram. 2. Uncontrolled diabetes mellitus. Her hemoglobin came back high, so most likely she has postprandial hyperglycemia. She is not aware because she felt that her diabetes is under well control status since each time she checks it at home before meals it is in good range, 110 to 120. We are going to start her on additional dose of insulin Lantus in the morning 20 units along with her 27 units at night. 3. Hypertension. 4. Hyperlipidemia. 5. Left eye glaucoma. 6. History of right foot gangrene and status post amputation of the 3rd and 4th toes of the right foot. 7. Renal insufficiency. Her creatinine improved with IV fluids, so I am going to stop IV fluids in a.m. PLAN: We are still waiting for neurologist to see her regarding her loss of consciousness status as she has negative workup so far. I am still collecting urine for 24 hour for metanephrines to rule out pheochromocytoma, but we are intensifying her diabetic regimen since she is running always about 300 or even higher on her Accu-Cheks. Job ID: [id number]
--- NOTE | 2019-02-04 15:48 | CT ---
CT ANGIOGRAM CERVICAL SPINE WITH CONTRAST: CT ANGIOGRAM OF BRAIN WITH AND WITHOUT CONTRAST: CT ANGIOGRAM OF NECK WITH AND WITHOUT CONTRAST: DATE: 02/02/2019 HISTORY: 58-year-old female with acute stroke symptoms TECHNIQUE: After IV contrast injection, arterial bolus chasing technique scan performed from aortopulmonic windo w to vertex of skull. Coronal and sagittal 3-D MIP reconstructions. FINDINGS: No high-grade stenosis or occlusion identified involving common carotid arteries, vertebral arteries, internal carotid arteries, or M1 segments of bilateral middle cerebral arteries. Anterior communicating artery. No intracranial aneurysm identified. origins of bilateral posterior cereb ral arteries. Normal caliber basilar artery. IMPRESSION: Negative Transcribed Date/Time: 02/04/2019 3:48 PM
[2019-02-04] MEDS: Insulin Glargine 27 UNITS in Pre-Filled Syringe 1 EACH SC SCH (21:22)
--- NOTE | 2019-02-05 00:01 | CON ---
DATE OF CONSULTATION: 02/04/2019 CONSULTING PHYSICIAN: Hospitalist Service. IMPRESSION: Syncopal episodes. PLAN: 1. Continue cardiac monitoring. 2. Check blood pressures if the patient is symptomatic to rule out a cardiovascular etiology. 3. Consider a trial of anticonvulsants if this is ruled out. HISTORY OF PRESENT ILLNESS: Ms. Gaona is a 58-year-old female with a past history of hypertension, diabetes, hyperlipidemia, and mild partial blindness. She reports over the last few days she has had several episodes where she becomes diaphoretic, flushed, nauseous, and a bit lightheaded. These have occurred several times prior to having an episode while sitting on the couch. She apparently went unconscious and was left in a sitting position. EMS was called and she was transported to the hospital. She regained awareness at the hospital. She was hyperglycemic. She has been admitted to the unit for further evaluation. She reports she has had some mild symptoms since admission. Since she has had an MRI of the brain, which was completely normal. Her EEG was also unremarkable. Her echocardiogram showed 50% to 55% ejection fraction. CT angiogram did not show any stenosis. There is no past history of seizures. PAST MEDICAL HISTORY: As listed above. ALLERGIES: MORPHINE, TRAMADOL. MEDICATIONS: Medication list was reviewed. REVIEW OF SYSTEMS: Ten-system review of systems is otherwise negative for chest pain or shortness of breath. PHYSICAL EXAMINATION: GENERAL: She is a slightly overweight, middle-aged woman, sitting up in the bed, in no distress. VITAL SIGNS: Have been stable. She is afebrile. HEENT: Pupils are equal. Conjunctivae are clear. Oropharynx is clear. NECK: Supple. EXTREMITIES: No cyanosis. NEUROLOGIC: She is alert and appropriate. Her speech is fluent and clear. Exam is nonfocal. No abnormal movements are seen. LABORATORY DATA: EKG records were reviewed and appears to be in a sinus rhythm throughout. SUMMARY: Middle-aged woman with transient episodes of nausea, flushing, diaphoresis followed by what sounds to be a syncopal episode. There was no definitive convulsive activity associated with the episode, further cardiac workup would seem appropriate. If this fails to reveal a cause, it is possible that this could have been a nonconvulsive seizure. A trial of Keppra would be reasonable if the episodes continue. Job ID: [id number]
[2019-02-05] MEDS: HumaLOG 300 UNITS/3 ML VIAL SC PRN ×4 (05:28→21:11)
[2019-02-05] MEDS: Enoxaparin Sodium 30 MG/0.3 ML SYRINGE SC SCH (08:41)
[2019-02-05] MEDS: Aspirin 325 mg Enteric Coated Tablet PO SCH (08:41)
[2019-02-05] MEDS ORDERED: Insulin Glargine 20 UNITS in Pre-Filled Syringe 1 EACH SC SCH (09:00)
[2019-02-05] MEDS ORDERED: levETIRAcetam 500 MG TAB PO SCH ×2 (12:30→12:45)
--- NOTE | 2019-02-05 14:13 | PRG ---
DATE OF SERVICE: 02/05/2019 SUBJECTIVE: The patient is seen and examined at the bedside. She seems to be doing better, but she had couple of spells as before last night. OBJECTIVE: VITAL SIGNS: Blood pressure is 144/76, pulse is 82, temperature is 97.4, respiratory rate is 18, and O2 saturation is 93% on room air. HEENT: Head is atraumatic and normocephalic. Sclerae nonicteric. Oral mucosa is moist. NECK: Supple. LUNGS: Breath sounds somewhat diminished at both bases. HEART: S1 and S2 normal. No S3. No S4. ABDOMEN: Soft, nontender. Bowel sounds are present. No organomegaly. EXTREMITIES: No clubbing, cyanosis, or edema. NEUROLOGIC: She follow my commands. There are no any motor or sensory deficits. Cranial nerves are intact. LABORATORY DATA: Labs showed glycemia is ranging from 218 to 340. IMPRESSION: 1. Loss of consciousness of unclear etiology. The patient was seen by Dr. Cespedes, who recommends further cardiac evaluation and if it is negative, use Keppra for possible episode of seizures as a trial. 2. Uncontrolled diabetes mellitus. We will increase the dose on her insulin long-acting to 27 units of Lantus twice a day and start her glipizide. 3. Hypertension. I will increase her lisinopril to twice a day. 4. Diastolic dysfunction per echo. We will have Cardiology to evaluate her condition. 5. Hyperlipidemia. 6. Left eye glaucoma. 7. History of right foot gangrene and status post amputation of the 3rd and 4th toes. 8. Renal insufficiency. Her creatinine is improved with IV fluids. PLAN: Plan is to start her on her Lasix 40 mg once a day, lisinopril 5 mg twice a day. Start her on Keppra 500 mg twice a day. Start her on glipizide as mentioned above 5 mg once a day and atorvastatin. Also, I am going to go up on her insulin to 27 units of Lantus twice a day subcutaneously. Job ID: [id number]
[2019-02-05] MEDS: Atorvastatin Calcium 20 MG TAB PO SCH (21:09)
[2019-02-05] MEDS: levETIRAcetam 500 MG TAB PO SCH (21:10)
[2019-02-05] MEDS: Lisinopril 5 MG TAB PO SCH (21:10)
[2019-02-05] MEDS: Insulin Glargine 27 UNITS in Pre-Filled Syringe 1 EACH SC SCH (21:18)
--- NOTE | 2019-02-05 23:23 | CON ---
DATE OF CONSULTATION: 02/05/2019 INDICATION FOR CONSULTATION: A 58-year-old female with syncopal episode. HISTORY OF PRESENT ILLNESS: This very unfortunate 58-year-old female, who has been having one episode of syncope or loss of consciousness. She was unaware of what had happened from the time she passed out at home until she woke up here in the hospital. She has been having some slight episodes prior to being admitted to the hospital, where she says she feels like she becomes hot suddenly, gets dizzy, flushed feeling, nauseated, and clammy. They last for about 5 or 10 minutes and then afterward she feels like she is weak and heavy and also has headaches associated with it, which may last up to 2 to 3 hours. She did have couple episodes here in the hospital, and it was witnessed at that time that she had a normal heart rate and blood pressure also was not elevated. Blood sugar also was not unusually low or high at that time. She has undergone extensive neurologic evaluation. The CT brain was negative. CT angiogram was negative. Chest x-ray is unremarkable. MRI is normal. She had an EEG, which was normal. She has also had an echocardiogram, which shows normal ejection fraction with mild diastolic dysfunction with mild left atrial dilatation as well as mild mitral and tricuspid valve regurgitation. She has had no arrhythmias since being here and has actually suffered a couple episodes since being here. She also said that she had a couple episodes 2 to 3 weeks prior to being admitted to the hospital, but they had only one significant episode and she had actual loss of consciousness. At this time, she appears to be relatively stable except for blood sugar still not very well controlled. Her hemoglobin A1c was greater than 9, when she arrived and her blood pressure also is not very well controlled. PAST MEDICAL HISTORY: Significant for hypertension, diabetes, and hyperlipidemia. She has glaucoma. 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 She has had a . She has had a left nephrectomy due to renal cell carcinoma. She has had cholecystectomy. FAMILY HISTORY: Positive for renal failure and diabetes. SOCIAL HISTORY: No history of alcohol or tobacco abuse. ALLERGIES: SHE IS ALLERGIC TO TRAMADOL AND MORPHINE. SOCIAL HISTORY: She has 2 children, who are alive and well. REVIEW OF SYSTEMS: Please refer to the notes already dictated, but she did not give any significant complaints on the review of systems from a cardiac standpoint or pulmonary standpoint, GI or . Mainly, she complains of the partial blindness and also these odd episodes. PHYSICAL EXAMINATION: GENERAL: Reveals a well-developed, well-nourished, somewhat obese female. VITAL SIGNS: Blood pressure is 185/83, earlier it was 144/76. Respiratory rate is 18, heart rate is 82 and regular. She is afebrile. O2 saturation is 97%. HEENT: Reveals the head to be normocephalic and atraumatic. Carotid pulses are present. There were no bruits. CHEST: Her chest was clear to auscultation without rales, rhonchi, or wheezing. CARDIOVASCULAR: Reveals a regular rate and rhythm with normal S1 and S2. I cannot hear an S3 nor an S4. No other any significant murmurs, heaves, thrills, bruits, or rubs. ABDOMEN: Soft and nontender. She has positive bowel sounds. She has obesity. EXTREMITIES: Showed no clubbing, cyanosis, or edema. Pedal pulses are present. Popliteal pulses are present. She has a well-healed surgical incision at the right foot after the amputation of the toes. NEUROLOGICAL: At this time, she appears to be intact. I cannot elicit any gross focal motor deficits. SKIN: Warm and dry. LABORATORY DATA: Her EKG shows a normal sinus rhythm with no acute changes. Echocardiogram as noted above. Her laboratory data shows a hemoglobin of 13.2, WBC of 5.8, and platelet count 164,000. Her creatinine is 1.04, BUN was 28, and blood sugars have been in the 300s. Potassium is 4.1. IMPRESSION: 1. Episode of syncope of uncertain etiology. I do not see indication that this was cardiac in nature at this time. Certainly, it could have been some type of arrhythmia. If that is the case and she has any further episodes that are not documented, she may need to undergo implantation of an implantable loop recorder, which would at least allow us to see whether or not she is having any arrhythmias or bradycardia that might be associated with syncope. 2. Poorly-controlled diabetes. I will leave this up to the discretion of the primary care service. 3. Renal insufficiency in the past, but she appears to be stable at this time. 4. Hypertension. As far as her medications are concerned, we may need to start her on some type of medication for lowering of the blood pressure. From a cardiac standpoint, I do not have any indication that this would have been cardiac in nature, her syncopal episode, and again I would advise possible LINQ implant should she have further symptoms. At this time, the workup is undergoing for her hypertension and episodes of feeling hot. It is always possible that she has some underlying tumor with renal abnormalities. MEDICATIONS: At home included, 1. Atorvastatin. 2. Furosemide. 3. Gabapentin. 4. Lisinopril. 5. Albuterol inhaler. 6. Aspirin. 7. Insulin. 8. Glipizide. For her hypertension, we certainly could increase her lisinopril. Renal function appears to be relatively stable at this time. We could also start her on Norvasc, relatively inexpensive medicine, which may control her blood pressure. We could certainly try this while she is admitted to the hospital. I would be more than happy to continue to follow the patient with you. Hopefully, she may present with some symptoms while she is yet still in the hospital give us an idea as to the etiology of her episodes of the presyncope that she is undergoing at this time. Job ID: [id number]
[2019-02-06] MEDS: HumaLOG 300 UNITS/3 ML VIAL SC PRN ×4 (06:08→20:41)
[2019-02-06] MEDS: Furosemide 40 MG TAB PO SCH (08:35)
[2019-02-06] MEDS: Amlodipine 5 MG TAB PO SCH (08:36)
[2019-02-06] MEDS: levETIRAcetam 500 MG TAB PO SCH ×2 (08:36→20:39)
[2019-02-06] MEDS: Lisinopril 5 MG TAB PO SCH ×2 (08:36→20:39)
[2019-02-06] MEDS: Aspirin 81 mg Enteric Coated Tablet PO SCH (08:36)
[2019-02-06] MEDS: Enoxaparin Sodium 30 MG/0.3 ML SYRINGE SC SCH (08:38)
[2019-02-06] MEDS ORDERED: Lisinopril 20 MG TAB PO SCH (09:00)
[2019-02-06] MEDS ORDERED: Lisinopril 5 MG TAB PO SCH (09:00)
[2019-02-06] MEDS ORDERED: glipiZIDE 5 MG TAB PO SCH (09:00)
[2019-02-06] MEDS ORDERED: Insulin Glargine 27 UNITS in Pre-Filled Syringe 1 EACH SC SCH (09:00)
--- NOTE | 2019-02-06 10:56 | PRG ---
DATE OF SERVICE: 02/06/2019 SUBJECTIVE: The patient is seen and examined at the bedside. She is still has those episodes of lightheadedness and swelling. She had two of them last night, but apparently the blood pressure does not go up and she is not tachycardic during those episodes. So, most likely pheochromocytoma diagnosis, which is one of the suspected diagnoses is not real. OBJECTIVE: VITAL SIGNS: Blood pressure is 168/80, and this morning was even up to 178/80, pulse 78, temperature is 97.9, respiratory rate is 16, O2 saturation is 95% on room air. HEENT: Head is atraumatic and normocephalic. Eyes are PERRLA. Sclerae are nonicteric. Oral mucosa is moist. NECK: Supple. LUNGS: Clear. HEART: S1, S2 normal. No S3. No S4. No any murmur. ABDOMEN: Soft, nontender. Bowel sounds are present. No organomegaly. EXTREMITIES: No clubbing, cyanosis, or edema.. NEUROLOGICAL EXAMINATION: She is alert and oriented x4. There is no any sensory or motor deficits. Cranial nerves are intact. LABORATORY DATA: Glycemia is ranging from 246 to 368. IMPRESSION: 1. Recurrent episodes of lightheadedness associated with perspirations of unclear etiology. Cardiology consultation was done yesterday. The patient was seen by Dr. Villalba, who is thinking about maybe using loop recorder to rule out any cardiac arrhythmia. 2. Poorly-controlled diabetes. I am going to go up on her insulin again to 30 units of Lantus twice a day plus sliding scale. Continue glipizide. 3. Uncontrolled hypertension. She is started on amlodipine by police reserves commander and she is continuing on her JUAN inhibitor, lisinopril 5 mg twice a day. Also, she is on Lasix. 4. Diastolic dysfunction, per echo. 5. Hyperlipidemia. 6. Left eye glaucoma. 7. 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 8. Renal insufficiency, stage 3. PLAN: Plan is to continue her Lasix. Close monitoring her blood pressure. The patient is on lisinopril and amlodipine at this point. I am going to go up on her long-acting insulin to 30 units twice a day plus sliding scale and we will continue her Keppra 500 mg twice a day. Since we have multiple medical problems, which driving additional diagnostic workup, I am going to change her to inpatient and we will continue our work on her, and Cardiology will make decision whether they are going to do implantable loop recorder. She is refusing Lovenox for DVT prophylaxis. Job ID: [id number]
--- NOTE | 2019-02-06 13:57 | PDOC.CTH ---
Cardiology Progress Note - Subjective The pt seen and examined. No overnight events. No cardiac complaints. She has had spinning like dizziness for 10-15 mins this AM - Objective Vital Signs Temp Pulse Resp BP BP Pulse Ox 02/06/19 11:51 97.8 F 79 16 143/70 H 96 02/06/19 08:36 97.9 F 78 16 178/80 H 168/80 H 95 02/06/19 04:00 97.5 F L 74 16 126/78 93 L Weight 210 lb 8 oz 02/05/19 02/06/19 02/07/19 06:59 06:59 06:59 Intake Total 1380 720 Output Total 700 Balance 680 720 - Physical Examination General/Neuro: alert & oriented x3 Neck: no JVD present Lungs: CTA Heart: RRR Abdomen: soft Extremities: other: (No edema) - Telemetry Telemetry Rhythm: SR - Labs Result Diagrams: 02/04/19 04:37 02/04/19 04:37 Troponin/CKMB Troponin I Less than 0.010 ng/mL (< 0.028) 02/02/19 23:02 - Assessment/Plan 1. Syncopal episode - possible LINQ placement on Friday 2. HTN - well controlled 3. DM - managed by PCP 4. HLD - on Statin 5. Hx of renal cell carcinoma with hx of Lt nephrectomy MAR Reviewed Pt. seen and eval. by me.I agree with the A/P by the INFORMATION TECHNOLOGY PROJECT MANAGER. We have discussed the plan Chest clear. RRR. She complained of dizziness when she turned over in bed. Her symptoms may be due to an inner ear problem. Review of Systems - Review of Systems Constitutional: reports: no symptoms reported EENTM: reports: no symptoms reported Respiratory: reports: no symptoms reported Cardiac (ROS): reports: no symptoms reported ABD/GI: reports: no symptoms reported : reports: no symptoms reported Musculoskeletal: reports: no symptoms reported
[2019-02-06 19:07] LABS: Metanephrine,Plasma <10 pg/mL (0-62); Normetanephrine,Pl 13 pg/mL (0-145)
[2019-02-06] MEDS: Atorvastatin Calcium 20 MG TAB PO SCH (20:39)
[2019-02-06] MEDS: Insulin Glargine 30 UNITS in Pre-Filled Syringe 1 EACH SC SCH (20:40)
[2019-02-07] MEDS: HumaLOG 300 UNITS/3 ML VIAL SC PRN ×4 (05:40→21:03)
[2019-02-07] MEDS: Enoxaparin Sodium 30 MG/0.3 ML SYRINGE SC SCH (09:10)
[2019-02-07] MEDS: Aspirin 81 mg Enteric Coated Tablet PO SCH (09:10)
[2019-02-07] MEDS: Amlodipine 5 MG TAB PO SCH (09:10)
[2019-02-07] MEDS: levETIRAcetam 500 MG TAB PO SCH (09:11)
[2019-02-07] MEDS: Furosemide 40 MG TAB PO SCH (09:11)
[2019-02-07] MEDS: Lisinopril 5 MG TAB PO SCH ×2 (09:11→21:01)
[2019-02-07] MEDS: Insulin Glargine 30 UNITS in Pre-Filled Syringe 1 EACH SC SCH ×2 (09:12→21:02)
--- NOTE | 2019-02-07 12:04 | PRG ---
DATE OF SERVICE: 02/07/2019 SUBJECTIVE: The patient complains of cough which is dry, which is on and off for the last couple of weeks. Apparently, she had some kind of viral infection prior to the hospitalization. Also, she noticed that each time she changes position, she has this vertigo and feeling lightheaded. OBJECTIVE: VITAL SIGNS: Blood pressure is 134/72, pulse is 85, temperature is 97.1, respirations 16, O2 saturation is 95% on room air. HEENT: Her head is atraumatic and normocephalic. Eyes are PERRLA. Sclerae are nonicteric. Oral mucosa is moist. NECK: Supple. LUNGS: Bilateral crackles at both bases. HEART: S1 and S2 normal. No S3. No S4. ABDOMEN: Soft, obese, nontender. EXTREMITIES: No clubbing, cyanosis, or edema. NEUROLOGICAL: She is alert and oriented x4. There are no any motor or sensory deficits present. Cranial nerves are intact. LABORATORY DATA: Glycemia is ranging from 229 to 382. IMPRESSION: 1. Recurrent episodes of lightheadedness associated with movement which sounds more like benign positional vertigo to me. We are going to start her on meclizine. We will stop her Keppra since it is quite unlikely that this is caused by some kind of seizure activity in the central nervous system. 2. Poorly controlled diabetes. We will just increase significantly her long-acting insulin to twice a day along with glipizide and sliding scale. She is difficult to control her glycemia, most likely secondary to her recent viral infection, but this should be getting better gradually. 3. Uncontrolled hypertension, which is significantly better with amlodipine and lisinopril on board. 4. Diastolic dysfunction per echo. I am going to increase her Lasix to 40 mg twice a day, which should help us with the cough. 5. Hyperlipidemia. 6. Left eye glaucoma and blindness. 7. 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 8. Renal insufficiency stage 3. PLAN: As mentioned above, double the dose on her Lasix from 40 once a day to twice a day. Start meclizine 25 mg 3 times a day. Stop Keppra. Start Tessalon Perles 1 capsule 3 times a day and get up and do some walking since she is refusing Lovenox for DVT prophylaxis that she will try to be more active. Job ID: [id number]
[2019-02-07] MEDS: Benzonatate 100 MG CAP PO SCH ×2 (14:18→21:02)
[2019-02-07] MEDS: Meclizine HCl 25 MG TAB PO SCH ×2 (14:18→21:02)
[2019-02-07] MEDS: Furosemide 20 MG TAB PO SCH (14:21)
--- NOTE | 2019-02-07 16:49 | PDOC.CTH ---
Cardiology Progress Note - Subjective The pt seen and examined. No overnight events. No cardiac complaints. - Objective Vital Signs Temp Pulse Resp BP BP Pulse Ox 02/07/19 15:36 98.5 F 86 16 114/70 95 02/07/19 11:47 80 92 L 02/07/19 11:40 97.6 F 83 16 145/71 H 87 L 02/07/19 09:11 85 134/72 02/07/19 09:10 85 134/72 02/07/19 09:09 95 02/07/19 08:00 97.1 F L 85 16 134/72 95 Weight 210 lb 8 oz 02/06/19 02/07/19 02/08/19 06:59 06:59 06:59 Intake Total 720 1020 Balance 720 1020 - Physical Examination General/Neuro: alert & oriented x3 Neck: no JVD present Lungs: CTA Heart: RRR Abdomen: soft Extremities: other: (No edema) - Telemetry Telemetry Rhythm: SR - Labs Result Diagrams: 02/04/19 04:37 02/04/19 04:37 Troponin/CKMB Troponin I Less than 0.010 ng/mL (< 0.028) 02/02/19 23:02 - Assessment/Plan 1. Syncopal episode - possible due to inner ear problem or Vertigo; cont. to monitor on tele 2. HTN - well controlled 3. DM - managed by PCP 4. HLD - on Statin 5. Hx of renal cell carcinoma with hx of Lt nephrectomy MAR Reviewed Pt. seen and eval. by me. I agree with the A/P by the TRANSCRIPTION TYPIST. Exam: Chest clear. RRR. she was started on meclizine. Perhaps this will help with the dizziness. If she has further syncope then a Loop recorder should be implanted to evaluate for possible arrhythmias. gjm Review of Systems - Review of Systems Constitutional: reports: no symptoms reported EENTM: reports: no symptoms reported Respiratory: reports: no symptoms reported Cardiac (ROS): reports: no symptoms reported ABD/GI: reports: no symptoms reported : reports: no symptoms reported Musculoskeletal: reports: no symptoms reported
[2019-02-07] MEDS: Atorvastatin Calcium 20 MG TAB PO SCH (21:01)
[2019-02-08] MEDS: HumaLOG 300 UNITS/3 ML VIAL SC PRN ×4 (06:24→20:20)
[2019-02-08] MEDS: Meclizine HCl 25 MG TAB PO SCH ×3 (06:24→20:26)
[2019-02-08] MEDS: Aspirin 81 mg Enteric Coated Tablet PO SCH (08:57)
[2019-02-08] MEDS: Benzonatate 100 MG CAP PO SCH ×3 (08:58→20:19)
[2019-02-08] MEDS: Enoxaparin Sodium 30 MG/0.3 ML SYRINGE SC SCH (08:59)
[2019-02-08] MEDS: Lisinopril 5 MG TAB PO SCH ×2 (09:56→20:19)
[2019-02-08] MEDS: Insulin Glargine 30 UNITS in Pre-Filled Syringe 1 EACH SC SCH ×2 (09:56→20:20)
[2019-02-08] MEDS: Furosemide 20 MG TAB PO SCH ×2 (09:56→13:10)
[2019-02-08] MEDS: Amlodipine 5 MG TAB PO SCH (09:56)
--- NOTE | 2019-02-08 11:23 | RAD ---
CHEST 2 VIEWS: HISTORY: Persistent coughing. COMPARISON: 01/27/2019. FINDINGS: Monitor leads overlie the chest. Heart size is within normal limits. There are some minimal stable increased linear and interstitial markings, evidence for mild chronic change. IMPRESSION: No significant acute intrathoracic disease. No evidence for pneumonia. Mild atherosclerosis of the aorta. Stable from prior study. POS: [facility]
[2019-02-08 14:47] LABS: Bilirubin Negative (Negative); Blood, Urine Negative (Negative); Clarity CLEAR (Clear); Glucose, Urine (Dipstick) Negative (Negative); Leukocyte Negative (Negative); Nitrite Negative (Negative); Protein, Urine (Dipstick) 30 mg/dL (Neg-Trace); Specific Gravity, Urine 1.009 (1.002-1.036); Urobilinogen 0.2 mg/dL (0.2-1.0); pH, Urine 5.5 (5.0-9.0)
[2019-02-08 14:49] LABS: Bacteria/HPF None Seen HPF (None Seen); Hyaline Casts/LPF 0-3 HYALINE CAST LPF (0-3 Hyaline); Pathc Cast-AUWi Flag 0.95 (0-2.49); RBC/HPF 0-3 HPF (0-3); Squamous Epithelial 0-3 HPF (0-3); WBC/HPF 0-3 HPF (0-3)
--- NOTE | 2019-02-08 16:52 | PRG ---
DATE OF SERVICE: 02/08/2019 SUBJECTIVE: The patient is seen and examined at the bedside. She is trying to walk with a walker in the room. She gets quite exhausted quite quickly and has lightheadedness when she moves, and her cough is much worse today. OBJECTIVE: VITAL SIGNS: Blood pressure is 100/66, temperature is 97.3, pulse is 61, respiratory rate is 16, and O2 saturation is 95% on room air. HEENT: Atraumatic and normocephalic. Sclerae are nonicteric. Oral mucosa is moist. NECK: Supple. LUNGS: Clear. HEART: S1 and S2 are normal. No S3. No S4. ABDOMEN: Soft, obese, and nontender. EXTREMITIES: No clubbing, cyanosis, or edema. NEUROLOGIC: She follows my commands. She moves her all 4 extremities. There is no any motor or sensory deficits present. Cranial nerves are intact. LABORATORY DATA: Labs showed urinalysis with 30 of proteins, otherwise within normal limits. Glycemia is ranging from 219 to 365. Chest x-ray, no acute intrathoracic disease. Mild atherosclerosis of the aorta. IMPRESSION: 1. Syncope of unclear etiology. 2. Recurrent episodes of lightheadedness, which is felt to be benign positional vertigo, but not responding to meclizine, and she will need to have referral to ENT after she is discharged. 3. Poorly controlled diabetes mellitus. We are going to escalate the treatment. 4. Uncontrolled hypertension, now we see significant effect of all medications which were started, amlodipine and Lasix, so we will stop amlodipine, and continue Lasix and lisinopril. 5. Diastolic dysfunction per echo. We will continue Lasix p.o. 40 twice a day. 6. Hyperlipidemia. 7. Left eye glaucoma and blindness. 8. History of right foot gangrene and status post amputation of the 3rd and 4th toes. 9. Renal insufficiency, stage 3. 10. Short runs of SVT and PAT on the monitoring. PLAN: We are going to make Cardiology aware of those monitoring findings. Maybe this is going to increase the probability that she needs a loop recorder to check her for arrhythmia. Her meclizine is not effecting her positional vertigo much according to her. I will continue for additional day, then stop it if there is no any improvement. She will continue on her Tessalon Perles three times a day, and we are going to work on her glycemia, we will escalate her doses of insulin. Job ID: [id number]
--- NOTE | 2019-02-08 18:02 | PDOC.CTH ---
Cardiology Progress Note - Objective Vital Signs Temp Pulse Resp BP BP BP Pulse Ox 02/08/19 15:48 97.3 F L 61 16 100/66 95 02/08/19 12:00 97.7 F 78 16 117/58 L 91 L 02/08/19 09:56 83 120/78 02/08/19 09:44 120/78 02/08/19 09:15 105/50 L 02/08/19 08:58 95 02/08/19 08:01 97.3 F L 83 16 102/52 L 95 Weight 210 lb 8 oz 02/07/19 02/08/19 02/09/19 06:59 06:59 06:59 Intake Total 1020 1631 240 Balance 1020 1631 240 - Physical Examination General/Neuro: alert & oriented x3 Neck: no JVD present Lungs: CTA Heart: RRR Abdomen: soft - Labs Result Diagrams: 02/04/19 04:37 02/04/19 04:37 Troponin/CKMB Troponin I Less than 0.010 ng/mL (< 0.028) 02/02/19 23:02 - Assessment/Plan 1. Syncopal episode - possible due to inner ear problem or Vertigo; cont. to monitor on tele. Short episode of SVT this afternoon. Plan for 30 day event monitor on d/c. 2. HTN - well controlled 3. DM - managed by PCP 4. HLD - on Statin 5. Hx of renal cell carcinoma with hx of Lt nephrectomy
[2019-02-08] MEDS: Atorvastatin Calcium 20 MG TAB PO SCH (20:19)
[2019-02-09] MEDS: Meclizine HCl 25 MG TAB PO SCH ×2 (06:23→15:32)
--- NOTE | 2019-02-09 09:02 | PDOC.CTH ---
Cardiology Progress Note - Subjective The pt seen and examined. No overnight events. No cardiac complaints. She had 1 episode of "spinning" like dizziness this AM. - Objective Vital Signs Temp Pulse Resp BP Pulse Ox 02/09/19 07:54 98.3 F 62 16 165/101 H 95 02/09/19 07:52 97.4 F L 82 16 135/73 90 L 02/09/19 04:00 98.5 F 78 18 109/55 L 92 L 02/09/19 00:00 97.7 F 86 18 143/76 H 95 Weight 219 lb 7 oz 02/08/19 02/09/19 02/10/19 06:59 06:59 06:59 Intake Total 1631 1610 Balance 1631 1610 - Physical Examination General/Neuro: alert & oriented x3 Neck: no JVD present Lungs: CTA Heart: RRR Abdomen: soft Extremities: other: (No edema) - Telemetry Telemetry Rhythm: SR - Labs Result Diagrams: 02/04/19 04:37 02/04/19 04:37 Troponin/CKMB Troponin I Less than 0.010 ng/mL (< 0.028) 02/02/19 23:02 - Assessment/Plan 1. Syncopal episode - possible due to inner ear problem or Vertigo; cont. to monitor on tele. Short episode of SVT yesterday afternoon. Plan for 30 day event monitor on d/c. 2. HTN - well controlled 3. DM - managed by PCP 4. HLD - on Statin 5. Hx of renal cell carcinoma with hx of Lt nephrectomy MAR reviewed * From Cardiac standpoint, the pt is stable to d/c home with 30-day EVR. * The pt will f/u with Dr Villalba' office after 30 day EVR done. Pt. seen and eval. by me. I agree with the A/P by the NUTRITION TECH.Chest clear. RRR. Review of Systems - Review of Systems Constitutional: reports: no symptoms reported EENTM: reports: no symptoms reported Respiratory: reports: no symptoms reported Cardiac (ROS): reports: no symptoms reported ABD/GI: reports: no symptoms reported : reports: no symptoms reported Musculoskeletal: reports: no symptoms reported
[2019-02-09] MEDS: Insulin Glargine 30 UNITS in Pre-Filled Syringe 1 EACH SC SCH (09:08)
[2019-02-09] MEDS: Benzonatate 100 MG CAP PO SCH ×2 (09:09→16:23)
[2019-02-09] MEDS: Aspirin 81 mg Enteric Coated Tablet PO SCH (09:09)
[2019-02-09] MEDS: Lisinopril 5 MG TAB PO SCH (09:09)
[2019-02-09] MEDS: Enoxaparin Sodium 30 MG/0.3 ML SYRINGE SC SCH (09:10)
[2019-02-09] MEDS: Furosemide 20 MG TAB PO SCH ×2 (09:10→15:31)
[2019-02-09] MEDS: HumaLOG 300 UNITS/3 ML VIAL SC PRN (11:07)
[2019-02-09 13:12] LABS: Metanephrine,Ur 16 ug/L (Undefined); Metanephrines Total-24H 49 ug/24 hr (45-290); Normetanephrine,Ur 58 ug/L (Undefined); Normetanephrines-24H U 179 ug/24 hr (82-500)
[2019-02-09 15:28] VITALS: BP 122/77; TEMP 97.7
--- NOTE | 2019-02-10 03:44 | DIS ---
DATE OF ADMISSION: 02/03/2019 DATE OF DISCHARGE: 02/09/2019 FINAL DIAGNOSES: 1. Syncope. 2. Recurrent episodes of lightheadedness, most likely related to inner ear problem. 3. Poorly controlled diabetes mellitus. 4. Uncontrolled hypertension. 5. Diastolic dysfunction on her cardiac echo. 6. Hyperlipidemia. 7. Left eye glaucoma and blindness. 8. 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 9. Renal insufficiency, stage III. 10. Short runs of supraventricular tachycardia and paroxysmal atrial tachycardia on the monitoring. CONSULTANTS: 1. Fritz Cespedes MD, Neurology Service. 2. Domi Villalba MD, Cardiology Service. HOSPITAL COURSE: The patient is a 58-year-old female, who was brought to the hospital after she lost consciousness. Apparently, she was sitting in the living room and she does not remember what happened. She did regain consciousness in the ambulance, going to the hospital. In the emergency room, her blood pressure was elevated at 180/100 consciousness completely and got admitted to the hospital for further evaluation of her problem. While in the emergency room, she had lab work done, which showed white count of 7.7, hemoglobin 14.7, hematocrit 43.9, and platelet count is 190,000. INR 1.0. PT of 12.8. Sodium 134, potassium 4.4, chloride 100, CO2 of 24, BUN 32, creatinine 1.73, glucose 293, albumin 3.4, globulin 3.9, and the rest of chemistry was within normal limits. Her electrocardiogram showed normal sinus rhythm. No ischemic changes with ventricular rate of [address] of the brain was done and did not show any acute abnormalities. Also, CT angiogram of the [place] of [place] was done and it did not show any abnormalities. Chest x-ray was within normal limits. The patient was admitted to observation to get Neurology consultation and MRI of the brain. She was continued on aspirin and 24-hour urine collection was done for metanephrines to rule out pheochromocytoma. She was placed on sliding scale with insulin since her glycemia was up above 350. Her hemoglobin A1c was checked and it came back at 9.3, which was telling us that she was not controlled on her diabetes at all, although she claimed that her glycemia is ranging from 100-110 every morning when she checked it. The patient was seen by Dr. Cespedes for neurologic consultation. He also did EEG, which did not show any epileptic activity. He recommended to use short course of Keppra if the cardiology evaluation is negative. Keppra was started and she was on it for approximately 3 days. She had those episodes of lightheadedness and sweating especially when she was moving and changing position. This was felt to be more benign positional vertigo than anything else, so meclizine was tried, but she did not really respond to that well. Echocardiogram was done, which showed some diastolic dysfunction and normal LVEF was to put patient on event recorder at the time of discharge. The patient's status was changed from observation to inpatient because her glycemia was completely uncontrolled, running above 300 most of the time when it was checked and blood pressure was elevated too. She was restarted on her Lasix and I doubled the dose on her lisinopril from 5 to 5 twice a day and her blood pressure seems to be doing much better at this point. Also, she was tried on amlodipine, but it was stopped because the blood pressure was getting to the point that she did not require that medicine. PHYSICAL EXAMINATION: GENERAL: Today, she is doing good. VITAL SIGNS: Blood pressure is 125/60, pulse is 80, temperature is 97.9, respirations 16, and O2 saturation is 96% on room air. LUNGS: Clear. HEART: S1 and S2 normal. No S3. No S4. No any murmur. ABDOMEN: Soft, nontender. Bowel sounds are present. No organomegaly. EXTREMITIES: No clubbing, cyanosis, or edema. DIET: She is discharged home with recommendation to stay on 2000 calories ADA diet. ACTIVITY: As tolerated. DISPOSITION: Home. MEDICATIONS AT THE TIME OF DISCHARGE: 1. Tessalon Perles 100 mg 3 times a day for the next 10 days. 2. Lisinopril 5 mg twice a day. 3. Glipizide 10 mg once a day. 4. Atorvastatin 20 mg at bedtime. 5. Furosemide 20 mg twice a day. 6. Gabapentin 300 mg twice a day. 7. Albuterol sulfate p.r.n. two puffs as needed. 8. Aspirin 1 tablet once a day. She is going to have event recorder for the next 30 days. FOLLOWUP: She will follow up with her primary care physician in [address] Villalba in 30 days. TIME SPENT: Time spent on this discharge is more than 30 minutes. Job ID: [id number]
== END 2019-02-09 16:21 | disposition home or self-care (01) | DRG 638 ==
LOC: ERS 22:49 → ERHOLD 02-03 00:13 → OBSVTOIN 02-03 00:13 → 2SE 02-03 00:36
PROVIDERS: ADMIT Hospitalist; ATTEND Hospitalist
DX: E11.65 Type 2 diabetes mellitus with hyperglycemia (principal); I47.1 Supraventricular tachycardia; H81.10 Benign paroxysmal vertigo, unspecified ear; I10 Essential (primary) hypertension; E78.5 Hyperlipidemia, unspecified; H40.9 Unspecified glaucoma; H54.7 Unspecified visual loss; N28.9 Disorder of kidney and ureter, unspecified; I51.89 Other ill-defined heart diseases; Z88.5 Allergy status to narcotic agent; Z90.49 Acquired absence of other specified parts of digestive tract; Z89.431 Acquired absence of right foot; Z90.5 Acquired absence of kidney; Z85.528 Personal history of other malignant neoplasm of kidney; Z79.82 Long term (current) use of aspirin; Z79.84 Long term (current) use of oral hypoglycemic drugs; Z79.899 Other long term (current) drug therapy
CPT/HCPCS: 36415; 36416; 70450; 70496; 70498; 70551; 71045; 71046; 80053; 81001; 82550; 83036; 83835; 84484; 85025; 85610; 85730; 86850; 86900; 86901; 93005; 93306; 95816; 95819; 96360; J1650; J1815; J1825; J8499; Q9966

== ENCOUNTER 2019-05-24 00:36 | Emergency (ER) | payer OTHER ==
[2019-05-24 01:35] LABS: #Eosinphils 0.1 thou/uL (0.0-0.7); #Lymphocytes 1.9 thou/uL (1.20-3.40); #Monocytes 0.4 thou/uL (0.11-0.59); #Neutrophils 3.5 thou/uL (1.40-6.50); %Basophils 0.5 % (0.0-1.0); %Eosinophils 1.2 % (0.0-10.0); %Lymphocytes 32.6 % (21.0-51.0); %Neutrophils 59.7 % (42.0-75.0); Hemoglobin 12.5 g/dL (12.0-16.0); Mean Corpuscular HGB CONC 34.7 g/dL (32.0-36.0); Mean Corpuscular Hemoglobin 30.1 pg (27.0-31.0); Mean Corpuscular Volume 86.7 fL (78.0-98.0); Platelet Count 181 thou/uL (130-400); RBC Distribution Width 12.7 % (11.5-14.5); Red Blood Cell (RBC) Count 4.16 mill/uL (4.20-5.40); White Blood Cell (WBC) Count 5.9 thou/uL (4.8-10.8)
[2019-05-24 01:52] LABS: ALT (SGPT) 16 U/L (8-55); AST (SGOT) 18 U/L (5-34); Albumin 3.1 g/dL (3.5-5.0); Alkaline Phosphatase 111 U/L (40-150); Anion Gap 15 mmol/L (10-20); BUN (Urea Nitrogen) 30 mg/dL (9.8-20.1); Bilirubin, Total 0.4 mg/dL (0.2-1.2); Calc. Creatinine Clearance 0 mL/min (70-130); Calcium 8.5 mg/dL (7.8-10.44); Carbon Dioxide 23 mmol/L (22-29); Chloride 100 mmol/L (98-107); Estimated GFR-MDRD 41; Globulin 3.4 g/dL (2.4-3.5); Potassium 5.1 mmol/L (3.5-5.1); Protein, Total 6.5 g/dL (6.0-8.3); Sodium 133 mmol/L (136-145)
[2019-05-24 01:54] LABS: Glucose 566 mg/dL (70-105)
[2019-05-24] MEDS ORDERED: Acetaminophen 500 MG TAB ONE (02:00)
[2019-05-24] MEDS ORDERED: Insulin Regular 300 UNITS/3 ML VIAL ONE (03:45)
[2019-05-24 04:22] LABS: Bacteria/HPF 1+ HPF (None Seen); Bilirubin Negative (Negative); Blood, Urine 1+ (Negative); Clarity Clear (Clear); Glucose, Urine (Dipstick) Greater than 1000 mg/dL (Negative); Leukocyte Negative Leu/uL (Negative); Nitrite Negative (Negative); Protein, Urine (Dipstick) 50 mg/dL (Neg-Trace); Squamous Epithelial 0-3 HPF (0-3); Urobilinogen Normal mg/dL (Less than 2); WBC/HPF 0-3 HPF (0-3)
== END 2019-05-24 05:00 | disposition home or self-care (01) ==
LOC: ERS 00:36
DX: E11.65 Type 2 diabetes mellitus with hyperglycemia (principal); E11.22 Type 2 diabetes mellitus with diabetic chronic kidney disease; I12.9 Hypertensive chronic kidney disease with stage 1 through stage 4 chronic kidney disease, or unspecified chronic kidney disease; N18.9 Chronic kidney disease, unspecified; E78.5 Hyperlipidemia, unspecified; E78.00 Pure hypercholesterolemia, unspecified; Z79.84 Long term (current) use of oral hypoglycemic drugs; Z79.82 Long term (current) use of aspirin; Z85.528 Personal history of other malignant neoplasm of kidney; Z79.899 Other long term (current) drug therapy
CPT/HCPCS: 36416; 80053; 81003; 81015; 82010; 85025; 96361; 96374; J1815

== ENCOUNTER 2019-06-29 10:48 | Day surgery (SDC) | payer OTHER ==
[2019-06-28 12:52] VITALS: BMI 36.1
[2019-06-29 11:54] LABS: Anion Gap 10 mmol/L (10-20); BUN (Urea Nitrogen) 32 mg/dL (9.8-20.1); Calc. Creatinine Clearance 73 mL/min (70-130); Calcium 8.8 mg/dL (7.8-10.44); Carbon Dioxide 24 mmol/L (22-29); Chloride 104 mmol/L (98-107); Estimated GFR-MDRD 50; Glucose 179 mg/dL (70-105); Potassium 4.1 mmol/L (3.5-5.1); Sodium 134 mmol/L (136-145)
[2019-06-29] MEDS ORDERED: Bupivacaine PF 0.5% 30 ML VIAL ONE (12:56)
[2019-06-29] MEDS ORDERED: Fentanyl 100 MCG/2 ML VIAL ONE (13:06)
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
== END 2019-06-29 15:25 | disposition home or self-care (01) ==
LOC: SDC 10:48
PROVIDERS: ATTEND Orthopaedic Surgery
PROC: 0Y6R0Z0 Detachment at Right 2nd Toe, Complete, Open Approach (ICD-10-PCS; principal; 2019-06-29)
DX: S97.81XA Crushing injury of right foot, initial encounter (principal); I10 Essential (primary) hypertension; E11.9 Type 2 diabetes mellitus without complications; E78.00 Pure hypercholesterolemia, unspecified; Z79.4 Long term (current) use of insulin; Z79.899 Other long term (current) drug therapy; Z88.5 Allergy status to narcotic agent; Z89.421 Acquired absence of other right toe(s)
CPT/HCPCS: 36415; 36416; 80048; J0690; J3010; S0020

== ENCOUNTER 2019-07-09 13:00 | Emergency (ER) | payer OTHER ==
[2019-07-09 14:21] LABS: #Lymphocytes 1.1 thou/uL (1.20-3.40); #Monocytes 0.6 thou/uL (0.11-0.59); #Neutrophils 4.7 thou/uL (1.40-6.50); %Basophils 0.3 % (0.0-1.0); %Eosinophils 0.5 % (0.0-10.0); %Lymphocytes 17.8 % (21.0-51.0); %Neutrophils 72.5 % (42.0-75.0); Hemoglobin 12.4 g/dL (12.0-16.0); Mean Corpuscular HGB CONC 34.3 g/dL (32.0-36.0); Mean Corpuscular Hemoglobin 29.7 pg (27.0-31.0); Mean Corpuscular Volume 86.6 fL (78.0-98.0); Mean Platelet Volume 6.9 fL (7.4-10.4); Platelet Count 145 thou/uL (130-400); RBC Distribution Width 12.5 % (11.5-14.5); Red Blood Cell (RBC) Count 4.16 mill/uL (4.20-5.40); White Blood Cell (WBC) Count 6.4 thou/uL (4.8-10.8)
[2019-07-09] MEDS ORDERED: Acetaminophen 500 MG TAB ONE (14:33)
[2019-07-09 14:39] LABS: ALT (SGPT) 20 U/L (8-55); AST (SGOT) 15 U/L (5-34); Alkaline Phosphatase 133 U/L (40-110); Anion Gap 10 mmol/L (10-20); BUN (Urea Nitrogen) 16 mg/dL (9.8-20.1); CK (CPK) 86 U/L (29-168); Calc. Creatinine Clearance 0 mL/min (70-130); Carbon Dioxide 26 mmol/L (22-29); Chloride 101 mmol/L (98-107); Estimated GFR-MDRD 53; Glucose 241 mg/dL (70-105); Potassium 4.2 mmol/L (3.5-5.1); Sodium 133 mmol/L (136-145)
--- NOTE | 2019-07-09 15:09 | CT ---
CT HEAD WITHOUT IV CONTRAST COMPARISON: 02/02/2019 HISTORY: Headache. TECHNIQUE: Axial CT imaging at 5 mm intervals from vertex through skull base without contrast FINDINGS: There is a punctate low-density focus seen within the medial aspect of the left basal ganglia stable from prior study likely due to a tiny remote lacunar infarction. A subtle low-density focus is seen in the left aspect of the amilcar which may represent a small lacunar infarction of indeterminate age., This could potentially be artifactual as there is artifact extending through this region. There is no evidence of an acute cortical infarction, hemorrhage, mass effect, or midline shift. The ventricul ar system is normal in size, shape, and position. Minimal mucosal thickening is seen in the ethmoidal air cells. The mastoid air cells are clear. Osseous structures appear intact. IMPRESSION: 1. Artifact in the region of the amilcar which limits evaluation. However, there is suggestion of a subt le small low-density focus in the left aspect of the amilcar likely due to small lacunar infarction of indeterminate age. MRI would be more sensitive study of choice for further evaluation.. 2. Stable remote lacunar infarction left basal ganglia. 3. No acute intracranial abnormality is otherwise demonstrated.
--- NOTE | 2019-07-09 15:12 | CT ---
CTA CHEST WITH CONTRAST, AND 3-D VOLUME RENDERING CLINICAL INDICATION: Short of breath; Elevated D-dimer Comparison exam: None FINDINGS: Pulmonary embolus:No significant filling defect is identified within the pulmonary arteries. Pulmonary parenchymal consolidation:Multifocal consolidation of the right lung most pronounced within right upper lobe with dense consolidation centrally, containing air bronchograms and numerous, surrounding satellite nodular parenchymal opacities as well as intervening ground glass alveolar opa city. Mild bilateral dependent atelectasis. Pleural effusion: Trace right pleural fluid Pneumothorax: None Osseous structures: No acute process. Thoracic aorta is normal in caliber. There is mild vascular calcification. Borderline-sized mediastinal lymph nodes are present. Incidental note of multiple surgical clips of the left upper abdomen IMPRESSION: No acute pulmonary embolus. Findings most consistent with atypical, multifocal pneumonia of the right lung. Given parenchymal nod ularity, short-term follow-up CT chest in 3 months is recommended upon resolution of symptoms and completion of treatment regimen to document complete resolution of findings. Transcribed Date/Time: 07/09/2019 3:39 PM
[2019-07-09] MEDS ORDERED: Ibuprofen 200 MG TAB ONE (16:34)
[2019-07-09] MEDS ORDERED: Aspirin Chewable 81 MG TAB ONE (16:38)
== END 2019-07-09 16:36 | disposition home or self-care (01) ==
LOC: ERS 13:00
DX: J18.9 Pneumonia, unspecified organism (principal); E11.9 Type 2 diabetes mellitus without complications; E78.5 Hyperlipidemia, unspecified; Z79.899 Other long term (current) drug therapy; Z79.82 Long term (current) use of aspirin; Z79.4 Long term (current) use of insulin
CPT/HCPCS: 36415; 70450; 71275; 80053; 82550; 84484; 85025; 93005; Q9966

== ENCOUNTER 2019-10-24 20:50 | Emergency (ER) | payer OTHER ==
[2019-10-24] MEDS ORDERED: Ketorolac Tromethamine 30 MG/ML VIAL ONE (21:26)
--- NOTE | 2019-10-24 21:54 | RAD ---
Radiograph right leg tibia-fibula 2 views: HISTORY: 59-year-old female with acute traumatic right leg pain due to fall. FINDINGS: No fracture of tibia or fibula. IMPRESSION: Negative.
--- NOTE | 2019-10-24 21:57 | RAD ---
Radiograph right foot 3 views: DATE: 10/24/2019 Time: 10:43 PM HISTORY: 59-year-old female with acute traumatic right foot pain due to fall. COMPARISON: 11/17/2018. FINDINGS: Again noted is the absence of the third and fourth proximal, middle, and distal phalanges. There is a new finding of absence of the second proximal, middle, and distal phalanges. Again noted a re the irregularities and flattening of the heads of the third, and especially fourth metatarsals. No acute fracture is identified. No dislocation. Diffuse soft tissue edema is worse currently than be fore. No destructive osseous lesion. IMPRESSION: 1. No acute fracture. 2. Status post disarticulations of the second, third, and fourth metatarsophalangeal joints.
== END 2019-10-24 22:36 | disposition home or self-care (01) ==
LOC: ERS 20:50
DX: S80.11XA Contusion of right lower leg, initial encounter (principal); W18.30XA Fall on same level, unspecified, initial encounter
CPT/HCPCS: 96372; 99283; J1885

== ENCOUNTER 2021-06-18 19:38 | Emergency (ER) | payer MEDICARE ==
[2021-06-18] MEDS ORDERED: Albuterol 200 PUFF (6.7GM INHALER) ONE (20:58)
== END 2021-06-18 22:09 | disposition home or self-care (01) ==
LOC: ERS 19:38
DX: J06.9 Acute upper respiratory infection, unspecified (principal); E78.5 Hyperlipidemia, unspecified; I10 Essential (primary) hypertension; E11.9 Type 2 diabetes mellitus without complications; Z79.1 Long term (current) use of non-steroidal anti-inflammatories (NSAID); Z79.899 Other long term (current) drug therapy; Z79.82 Long term (current) use of aspirin; Z85.53 Personal history of malignant neoplasm of renal pelvis; Z79.4 Long term (current) use of insulin
CPT/HCPCS: 71045

== ENCOUNTER 2022-02-25 14:11 | Inpatient (IN) | payer MEDICARE ==
[2022-02-25 14:54] LABS: #Eosinphils 0.1 thou/uL (0.0-0.7); #Monocytes 0.3 thou/uL (0.11-0.59); #Neutrophils 2.3 thou/uL (1.40-6.50); %Eosinophils 3.7 % (0.0-10.0); %Lymphocytes 26.1 % (21.0-51.0); %Monocytes 7.3 % (0.0-10.0); %Neutrophils 61.8 % (42.0-75.0); Hemoglobin 9.3 g/dL (12.0-16.0); Mean Corpuscular Hemoglobin 28.3 pg (27.0-31.0); Mean Corpuscular Volume 94.2 fL (78.0-98.0); Mean Platelet Volume 7.9 fL (7.4-10.4); Platelet Count 141 thou/uL (130-400); RBC Distribution Width 15.2 % (11.5-14.5); White Blood Cell (WBC) Count 3.7 thou/uL (4.8-10.8)
[2022-02-25 15:15] LABS: Hypochromia SLIGHT = 6-15 cells (100X) (0-5/hpf); MDiff Complete? YES; Ovalocytes SLIGHT = 2-5 cells (100X) (0-1/hpf); Platelet Morphology Comment Appears Adequate; Polychromasia SLIGHT = 2-3 cells (100X) (0-2/hpf)
[2022-02-25 15:18] LABS: ALT (SGPT) 14 U/L (8-55); AST (SGOT) 9 U/L (5-34); Albumin 2.7 g/dL (3.5-5.0); Alkaline Phosphatase 134 U/L (40-110); Anion Gap 12 mmol/L (10-20); BUN (Urea Nitrogen) 68 mg/dL (9.8-20.1); Bilirubin, Total 0.7 mg/dL (0.2-1.2); Calc. Creatinine Clearance 0 mL/min (70-130); Calcium 7.4 mg/dL (7.8-10.44); Carbon Dioxide 20 mmol/L (22-29); Chloride 113 mmol/L (98-107); Globulin 3.3 g/dL (2.4-3.5); Glucose 110 mg/dL (70-105); Potassium 4.4 mmol/L (3.5-5.1); Sodium 141 mmol/L (136-145)
[2022-02-25] MEDS ORDERED: Furosemide 40 MG/4 ML VIAL ONE (18:08)
[2022-02-25] MEDS ORDERED: Nitroglycerin 2% Ointment 1 INCH/1 GM Packet ONE (18:08)
[2022-02-25 18:29] LABS: Bacteria/HPF None Seen HPF (None Seen); Bilirubin Negative (Negative); Blood, Urine 2+ (Negative); Clarity Clear (Clear); Glucose, Urine (Dipstick) 300 mg/dL (Negative); Ketone, Urine Negative (Negative); Leukocyte Negative Leu/uL (Negative); Nitrite Negative (Negative); Protein, Urine (Dipstick) 300 mg/dL (Neg-Trace); Specific Gravity, Urine 1.016 (1.002-1.036); Squamous Epithelial 0-3 HPF (0-3); Urobilinogen Normal mg/dL (Less than 2); WBC/HPF 0-3 HPF (0-3); pH, Urine 6.5 (5.0-9.0)
[2022-02-25 18:57] LABS: Troponin I Less than 0.010 ng/mL (< 0.028)
[2022-02-25 19:54] VITALS: BMI 55.2
[2022-02-25] MEDS ORDERED: Acetaminophen 325 MG TAB PO PRN (20:35)
[2022-02-25] MEDS ORDERED: HumaLOG 300 UNITS/3 ML VIAL SC PRN ×2 (20:35)
[2022-02-25] MEDS ORDERED: Dextrose 5% in Water 1,000 ML IV PRN (20:35)
[2022-02-25] MEDS ORDERED: Acetaminophen 650 MG Suppository PR PRN (20:35)
[2022-02-25] MEDS ORDERED: Ondansetron ODT 4 MG TAB PO PRN (20:35)
[2022-02-25] MEDS ORDERED: Dextrose 50% Abboject 50 ML SYRINGE SLOW IVP PRN (20:35)
[2022-02-25] MEDS ORDERED: Ondansetron PF 4 MG/2 ML Vial IVP PRN (20:35)
[2022-02-25] MEDS ORDERED: Furosemide 40 MG/4 ML VIAL SLOW IVP SCH (21:15)
[2022-02-25 21:21] LABS: Troponin I Less than 0.010 ng/mL (< 0.028)
[2022-02-25] MEDS: hydrALAZINE 20 MG/ML VIAL SLOW IVP PRN (23:12)
[2022-02-26] MEDS: Nitroglycerin 2% Ointment 1 INCH/1 GM Packet TOP SCH ×2 (00:24→05:12)
[2022-02-26 04:55] LABS: #Eosinphils 0.2 thou/uL (0.0-0.7); #Lymphocytes 0.9 thou/uL (1.20-3.40); #Monocytes 0.3 thou/uL (0.11-0.59); #Neutrophils 2.7 thou/uL (1.40-6.50); %Basophils 0.1 % (0.0-1.0); %Eosinophils 4.1 % (0.0-10.0); %Lymphocytes 22.7 % (21.0-51.0); %Monocytes 7.6 % (0.0-10.0); %Neutrophils 65.4 % (42.0-75.0); Hemoglobin 9.1 g/dL (12.0-16.0); Mean Corpuscular Hemoglobin 28.9 pg (27.0-31.0); Mean Corpuscular Volume 93.1 fL (78.0-98.0); Mean Platelet Volume 8.1 fL (7.4-10.4); Platelet Count 132 thou/uL (130-400); RBC Distribution Width 15.2 % (11.5-14.5); Red Blood Cell (RBC) Count 3.14 mill/uL (4.20-5.40); White Blood Cell (WBC) Count 4.1 thou/uL (4.8-10.8)
[2022-02-26 05:20] LABS: Anion Gap 13 mmol/L (10-20); BUN (Urea Nitrogen) 70 mg/dL (9.8-20.1); Calc. Creatinine Clearance 25 mL/min (70-130); Calcium 7.5 mg/dL (7.8-10.44); Carbon Dioxide 19 mmol/L (22-29); Chloride 114 mmol/L (98-107); Glucose 118 mg/dL (70-105); Magnesium 1.7 mg/dL (1.6-2.6); Potassium 4.6 mmol/L (3.5-5.1); Sodium 141 mmol/L (136-145)
[2022-02-26 05:23] LABS: Phosphorus 6.8 mg/dL (2.3-4.7)
[2022-02-26 05:28] LABS: Iron 35 ug/dL (50-170); Iron Binding Capacity, Total 240 mcg/dL (265-497)
[2022-02-26 05:46] LABS: Ferritin 114.97 ng/mL (10-291)
[2022-02-26 07:57] LABS: Creatinine, Urine 23.78 mg/dL (47-110)
[2022-02-26] MEDS: Sodium Bicarbonate Tab 325 MG TAB PO SCH ×2 (08:14→20:19)
[2022-02-26] MEDS: Gabapentin 300 MG CAP PO SCH ×2 (08:15→20:18)
[2022-02-26] MEDS: Enoxaparin Sodium 30 MG/0.3 ML SYRINGE SC SCH ×2 (08:16→08:18)
[2022-02-26] MEDS ORDERED: Furosemide 100 MG/10 ML VIAL SLOW IVP SCH ×2 (09:00→15:45)
[2022-02-26] MEDS ORDERED: Furosemide 40 MG/4 ML VIAL SLOW IVP SCH (09:00)
[2022-02-26] MEDS ORDERED: Metolazone 5 MG TAB PO SCH (09:00)
[2022-02-26] MEDS ORDERED: Enoxaparin Sodium 40 MG/0.4 ML SYRINGE SC SCH (09:00)
[2022-02-26] MEDS: hydrALAZINE 20 MG/ML VIAL SLOW IVP PRN ×2 (12:02→16:03)
[2022-02-26] MEDS: Calcium Acetate 667 MG CAP PO SCH (18:58)
[2022-02-26] MEDS: Ferrous Sulfate 325 MG TAB PO SCH (18:58)
[2022-02-26] MEDS ORDERED: EPOETIN ALFA-EPBX (ESRD) 10,000 UNIT/ML VIAL SC SCH (20:00)
[2022-02-26] MEDS ORDERED: Epoetin (ESRD) 10,000 UNITS/ML VIAL SC SCH (20:00)
[2022-02-26] MEDS ORDERED: Non-Formulary Item 1 EACH (Insulin Detemir [Levemir] 100 UNIT/ML Vial) SQ SCH (21:00)
[2022-02-27 04:54] LABS: #Eosinphils 0.2 thou/uL (0.0-0.7); #Lymphocytes 0.8 thou/uL (1.20-3.40); #Monocytes 0.4 thou/uL (0.11-0.59); #Neutrophils 3.1 thou/uL (1.40-6.50); %Basophils 0.5 % (0.0-1.0); %Eosinophils 3.5 % (0.0-10.0); %Lymphocytes 17.7 % (21.0-51.0); %Monocytes 8.8 % (0.0-10.0); %Neutrophils 69.5 % (42.0-75.0); Hemoglobin 8.9 g/dL (12.0-16.0); Mean Corpuscular HGB CONC 31.5 g/dL (32.0-36.0); Mean Corpuscular Hemoglobin 29.3 pg (27.0-31.0); Mean Corpuscular Volume 93.1 fL (78.0-98.0); Mean Platelet Volume 8.3 fL (7.4-10.4); Platelet Count 133 thou/uL (130-400); RBC Distribution Width 15.1 % (11.5-14.5); Red Blood Cell (RBC) Count 3.01 mill/uL (4.20-5.40); White Blood Cell (WBC) Count 4.4 thou/uL (4.8-10.8)
[2022-02-27 05:13] LABS: Anion Gap 13 mmol/L (10-20); BUN (Urea Nitrogen) 70 mg/dL (9.8-20.1); Calc. Creatinine Clearance 25 mL/min (70-130); Calcium 7.4 mg/dL (7.8-10.44); Carbon Dioxide 21 mmol/L (22-29); Chloride 111 mmol/L (98-107); Glucose 127 mg/dL (70-105); Magnesium 1.7 mg/dL (1.6-2.6); Potassium 4.5 mmol/L (3.5-5.1); Sodium 140 mmol/L (136-145)
[2022-02-27] MEDS: Furosemide 100 MG/10 ML VIAL SLOW IVP SCH ×2 (06:10→13:08)
[2022-02-27] MEDS: hydrALAZINE 20 MG/ML VIAL SLOW IVP PRN ×2 (09:05→20:09)
[2022-02-27] MEDS: Enoxaparin Sodium 30 MG/0.3 ML SYRINGE SC SCH (09:10)
[2022-02-27] MEDS: Gabapentin 300 MG CAP PO SCH ×2 (09:11→20:02)
[2022-02-27] MEDS: Calcium Acetate 667 MG CAP PO SCH ×3 (09:11→16:40)
[2022-02-27] MEDS: Ferrous Sulfate 325 MG TAB PO SCH ×2 (09:12→16:40)
[2022-02-27] MEDS: Sodium Bicarbonate Tab 325 MG TAB PO SCH (09:12)
[2022-02-28 05:15] LABS: #Eosinphils 0.1 thou/uL (0.0-0.7); #Lymphocytes 0.8 thou/uL (1.20-3.40); #Monocytes 0.3 thou/uL (0.11-0.59); #Neutrophils 3.6 thou/uL (1.40-6.50); %Basophils 0.4 % (0.0-1.0); %Eosinophils 2.1 % (0.0-10.0); %Monocytes 6.6 % (0.0-10.0); %Neutrophils 74.9 % (42.0-75.0); Hemoglobin 9.1 g/dL (12.0-16.0); Mean Corpuscular HGB CONC 31.3 g/dL (32.0-36.0); Mean Corpuscular Hemoglobin 29.1 pg (27.0-31.0); Mean Corpuscular Volume 92.8 fL (78.0-98.0); Mean Platelet Volume 8.4 fL (7.4-10.4); Platelet Count 138 thou/uL (130-400); RBC Distribution Width 15.3 % (11.5-14.5); Red Blood Cell (RBC) Count 3.11 mill/uL (4.20-5.40); White Blood Cell (WBC) Count 4.8 thou/uL (4.8-10.8)
[2022-02-28 05:32] LABS: Anion Gap 12 mmol/L (10-20); BUN (Urea Nitrogen) 75 mg/dL (9.8-20.1); Calc. Creatinine Clearance 23 mL/min (70-130); Calcium 7.2 mg/dL (7.8-10.44); Carbon Dioxide 23 mmol/L (22-29); Chloride 110 mmol/L (98-107); Glucose 123 mg/dL (70-105); Magnesium 1.8 mg/dL (1.6-2.6); Potassium 5.1 mmol/L (3.5-5.1); Sodium 140 mmol/L (136-145)
[2022-02-28] MEDS: Furosemide 100 MG/10 ML VIAL SLOW IVP SCH (06:12)
[2022-02-28] MEDS ORDERED: Furosemide 100 MG/10 ML VIAL SLOW IVP SCH (07:00)
[2022-02-28] MEDS ORDERED: Furosemide 40 MG/4 ML VIAL SLOW IVP SCH ×2 (07:15→14:00)
[2022-02-28] MEDS: Ferrous Sulfate 325 MG TAB PO SCH (08:34)
[2022-02-28] MEDS: Gabapentin 300 MG CAP PO SCH (08:35)
[2022-02-28] MEDS: Enoxaparin Sodium 30 MG/0.3 ML SYRINGE SC SCH (08:35)
[2022-02-28] MEDS: Calcium Acetate 667 MG CAP PO SCH (08:35)
[2022-02-28 12:09] VITALS: BP 166/79; TEMP 97.7
[2022-03-05] MEDS ORDERED: Ergocalciferol 1.25 MG(50,000 UNITS) CAP PO SCH (09:00)
== END 2022-02-28 14:19 | disposition home or self-care (01) | DRG 291 ==
LOC: ERS 14:11 → 2SW 18:11 → OBSVTOIN 02-26 10:49
PROVIDERS: ADMIT Internal Medicine; ATTEND Hospitalist
DX: I11.0 Hypertensive heart disease with heart failure (principal); I50.33 Acute on chronic diastolic (congestive) heart failure; N17.9 Acute kidney failure, unspecified; Z68.43 Body mass index [BMI] 50.0-59.9, adult; E87.2 Acidosis; N18.5 Chronic kidney disease, stage 5; N25.81 Secondary hyperparathyroidism of renal origin; I16.0 Hypertensive urgency; E66.01 Morbid (severe) obesity due to excess calories; H40.9 Unspecified glaucoma; D63.1 Anemia in chronic kidney disease; E88.09 Other disorders of plasma-protein metabolism, not elsewhere classified; E83.51 Hypocalcemia; R80.9 Proteinuria, unspecified; E78.5 Hyperlipidemia, unspecified; D50.9 Iron deficiency anemia, unspecified; I50.9 Heart failure, unspecified; E11.22 Type 2 diabetes mellitus with diabetic chronic kidney disease; Z20.822 Contact with and (suspected) exposure to COVID-19; Z85.528 Personal history of other malignant neoplasm of kidney; Z88.8 Allergy status to other drugs, medicaments and biological substances; Z88.5 Allergy status to narcotic agent; Z79.4 Long term (current) use of insulin; Z79.899 Other long term (current) drug therapy; Z90.49 Acquired absence of other specified parts of digestive tract; Z90.5 Acquired absence of kidney; Z89.422 Acquired absence of other left toe(s); Z86.73 Personal history of transient ischemic attack (TIA), and cerebral infarction without residual deficits; Z98.891 History of uterine scar from previous surgery; Z82.49 Family history of ischemic heart disease and other diseases of the circulatory system; Z83.3 Family history of diabetes mellitus
CPT/HCPCS: 36415; 36416; 71045; 76775; 80048; 80053; 81003; 81015; 82306; 82570; 82607; 82728; 82746; 83540; 83550; 83735; 83880; 83970; 84100; 84156; 84484; 85025; 93005; 93306; 94760; 96374; 96375; 96376; G0378; J0360; J1650; J1940; Q4081; U0003; U0005

== ENCOUNTER 2022-04-23 09:31 | Outpatient (CLI) | payer MEDICARE | END 2022-04-23 09:32 | disposition home or self-care (01) | PROVIDERS: ATTEND Family Medicine | DX: M62.81 Muscle weakness (generalized) (principal) ==

== ENCOUNTER 2022-04-25 21:00 | Emergency (ER) | payer MEDICARE ==
[2022-04-25 22:09] LABS: #Eosinphils 0.1 thou/uL (0.0-0.7); #Lymphocytes 0.6 thou/uL (1.20-3.40); #Monocytes 0.4 thou/uL (0.11-0.59); #Neutrophils 2.8 thou/uL (1.40-6.50); %Basophils 0.3 % (0.0-1.0); %Eosinophils 3.5 % (0.0-10.0); %Lymphocytes 16.3 % (21.0-51.0); %Monocytes 8.9 % (0.0-10.0); %Neutrophils 70.9 % (42.0-75.0); Hemoglobin 8.7 g/dL (12.0-16.0); Mean Corpuscular Hemoglobin 28.3 pg (27.0-31.0); Mean Corpuscular Volume 94.3 fL (78.0-98.0); Mean Platelet Volume 8.9 fL (7.4-10.4); Platelet Count 125 thou/uL (130-400); RBC Distribution Width 15.6 % (11.5-14.5); Red Blood Cell (RBC) Count 3.07 mill/uL (4.20-5.40); White Blood Cell (WBC) Count 3.9 thou/uL (4.8-10.8)
[2022-04-25 22:31] LABS: ALT (SGPT) 14 U/L (8-55); AST (SGOT) 11 U/L (5-34); Albumin 2.7 g/dL (3.4-4.8); Alkaline Phosphatase 166 U/L (40-110); Anion Gap 13 mmol/L (10-20); BUN (Urea Nitrogen) 79 mg/dL (9.8-20.1); Bilirubin, Total 0.6 mg/dL (0.2-1.2); Calc. Creatinine Clearance 0 mL/min (70-130); Calcium 6.9 mg/dL (7.8-10.44); Carbon Dioxide 19 mmol/L (23-31); Chloride 113 mmol/L (98-107); Estimated GFR 10; Globulin 3.8 g/dL (2.4-3.5); Glucose 103 mg/dL (80-115); Potassium 5.6 mmol/L (3.5-5.1); Protein, Total 6.5 g/dL (5.8-8.1); Sodium 139 mmol/L (136-145)
[2022-04-25] MEDS ORDERED: Fentanyl 100 MCG/2 ML VIAL ONE (22:57)
== END 2022-04-26 00:22 | disposition home or self-care (01) ==
LOC: ERS 21:00
DX: S81.802A Unspecified open wound, left lower leg, initial encounter (principal); I10 Essential (primary) hypertension; E11.9 Type 2 diabetes mellitus without complications; E78.5 Hyperlipidemia, unspecified; Z79.899 Other long term (current) drug therapy; Z79.4 Long term (current) use of insulin; Z79.82 Long term (current) use of aspirin
CPT/HCPCS: 36415; 80053; 85025; 96372; J3010

== ENCOUNTER 2022-04-28 18:22 | Inpatient (IN) | payer MEDICARE ==
[2022-04-28 18:50] LABS: #Lymphocytes 0.5 thou/uL (1.20-3.40); #Monocytes 0.4 thou/uL (0.11-0.59); #Neutrophils 5.3 thou/uL (1.40-6.50); %Basophils 0.1 % (0.0-1.0); %Eosinophils 0.4 % (0.0-10.0); %Neutrophils 85.5 % (42.0-75.0); Hemoglobin 9.1 g/dL (12.0-16.0); Mean Corpuscular HGB CONC 30.9 g/dL (32.0-36.0); Mean Platelet Volume 9.4 fL (7.4-10.4); Platelet Count 121 thou/uL (130-400); RBC Distribution Width 15.3 % (11.5-14.5); Red Blood Cell (RBC) Count 3.12 mill/uL (4.20-5.40); White Blood Cell (WBC) Count 6.2 thou/uL (4.8-10.8)
[2022-04-28 19:10] LABS: ALT (SGPT) 20 U/L (8-55); AST (SGOT) 20 U/L (5-34); Albumin 2.6 g/dL (3.4-4.8); Alkaline Phosphatase 196 U/L (40-110); Anion Gap 21 mmol/L (10-20); BUN (Urea Nitrogen) 98 mg/dL (9.8-20.1); Bilirubin, Total 0.8 mg/dL (0.2-1.2); Calc. Creatinine Clearance 0 mL/min (70-130); Calcium 7.1 mg/dL (7.8-10.44); Carbon Dioxide 12 mmol/L (23-31); Chloride 109 mmol/L (98-107); Estimated GFR 7; Globulin 4.1 g/dL (2.4-3.5); Glucose 94 mg/dL (80-115); Protein, Total 6.7 g/dL (5.8-8.1); Sodium 135 mmol/L (136-145)
[2022-04-28 19:15] LABS: Potassium 6.7 mmol/L (3.5-5.1)
[2022-04-28] MEDS ORDERED: Vancomycin 1 GM/200 ML BAG ONE ×2 (19:20→20:07)
[2022-04-28] MEDS ORDERED: Cefepime 1 GM VIAL ONE (19:20)
[2022-04-28] MEDS ORDERED: Sodium Bicarbonate 150 MEQ in Dextrose 5% in Water 1,000 ML IV SCH (20:15)
[2022-04-28] MEDS ORDERED: Ondansetron ODT 4 MG TAB SL PRN (23:00)
[2022-04-28] MEDS ORDERED: Acetaminophen 325 MG TAB PO PRN (23:00)
[2022-04-28] MEDS ORDERED: Ondansetron PF 4 MG/2 ML Vial IVP PRN (23:00)
[2022-04-28] MEDS: Albumin 25% 25 GM/100 ML BOT IVPB SCH (23:24)
[2022-04-28] MEDS ORDERED: HumaLOG 300 UNITS/3 ML VIAL SC PRN (23:41)
[2022-04-28] MEDS ORDERED: Dextrose 50% Abboject 50 ML SYRINGE SLOW IVP PRN (23:41)
[2022-04-28] MEDS ORDERED: Dextrose 5% in Water 1,000 ML IV PRN (23:41)
[2022-04-28] MEDS ORDERED: Vancomycin 1 GM in Premix Bag 1 BAG IVPB SCH (23:59)
[2022-04-29 00:55] LABS: Anion Gap 20 mmol/L (10-20); BUN (Urea Nitrogen) 97 mg/dL (9.8-20.1); Calc. Creatinine Clearance 20 mL/min (70-130); Calcium 7.2 mg/dL (7.8-10.44); Carbon Dioxide 13 mmol/L (23-31); Chloride 108 mmol/L (98-107); Estimated GFR 8; Glucose 131 mg/dL (80-115); Potassium 6.3 mmol/L (3.5-5.1); Sodium 135 mmol/L (136-145)
[2022-04-29] MEDS ORDERED: Sodium Bicarbonate 150 MEQ in Dextrose 5% in Water 1,000 ML IV SCH (01:12)
[2022-04-29] MEDS ORDERED: Insulin Regular 300 UNITS/3 ML VIAL IVP SCH (01:15)
[2022-04-29] MEDS ORDERED: Dextrose 50% Abboject 50 ML SYRINGE SLOW IVP SCH (01:15)
[2022-04-29] MEDS ORDERED: Calcium Gluc 4.6 MEQ/10 ML (100 MG/ML) SLOW IVP SCH (01:30)
[2022-04-29] MEDS ORDERED: Promethazine HCl 12.5 MG in Sodium Chloride 0.9% 50 ML IVPB SCH (03:15)
[2022-04-29] MEDS ORDERED: Sodium Chloride 0.9% (PF) 10 ML VIAL FS SCH (04:30)
[2022-04-29] MEDS ORDERED: Pantoprazole 40 MG VIAL IVP SCH (04:30)
[2022-04-29 05:05] LABS: #Eosinphils 0.2 thou/uL (0.0-0.7); #Lymphocytes 0.4 thou/uL (1.20-3.40); #Monocytes 0.6 thou/uL (0.11-0.59); #Neutrophils 6.5 thou/uL (1.40-6.50); %Basophils 0.1 % (0.0-1.0); %Eosinophils 2.1 % (0.0-10.0); %Lymphocytes 5.1 % (21.0-51.0); %Monocytes 7.7 % (0.0-10.0); %Neutrophils 85.1 % (42.0-75.0)
[2022-04-29 05:06] LABS: Hemoglobin 8.7 g/dL (12.0-16.0); Mean Corpuscular HGB CONC 30.1 g/dL (32.0-36.0); Mean Corpuscular Hemoglobin 28.6 pg (27.0-31.0); Mean Corpuscular Volume 95.1 fL (78.0-98.0); Mean Platelet Volume 9.4 fL (7.4-10.4); Platelet Count 115 thou/uL (130-400); RBC Distribution Width 15.5 % (11.5-14.5); Red Blood Cell (RBC) Count 3.04 mill/uL (4.20-5.40); White Blood Cell (WBC) Count 7.3 thou/uL (4.8-10.8)
[2022-04-29 05:14] LABS: Anion Gap 20 mmol/L (10-20); BUN (Urea Nitrogen) 95 mg/dL (9.8-20.1); Calc. Creatinine Clearance 20 mL/min (70-130); Calcium 7.1 mg/dL (7.8-10.44); Carbon Dioxide 13 mmol/L (23-31); Chloride 108 mmol/L (98-107); Estimated GFR 8; Glucose 77 mg/dL (80-115); Potassium 6.2 mmol/L (3.5-5.1); Sodium 135 mmol/L (136-145)
[2022-04-29 05:17] LABS: Hemoglobin A1c 5.1 % (4.0-6.0)
[2022-04-29 09:52] LABS: HBSAB Concentration Less than 8.00 mIU/mL; HBSAg Index 0.38 S/CO (0-0.99); Hep B Core Total Ab Non-Reactive (NonReactive); Hep B Core Total Index 0.15 S/CO (0-0.79); Hep B Surf AB Non-Reactive (NonReactive); Hep B Surf Ag Non-Reactive S/CO (NonReactive); Hep C IgG Ab Non-Reactive (NonReactive); Hep C Index 0.12 S/CO (0-0.79)
[2022-04-29] MEDS ORDERED: Heparin 10,000 UNITS/ 10 ML VIAL ONE (10:23)
[2022-04-29] MEDS: Heparin 5,000 UNITS/ML VIAL SC SCH ×2 (14:36→21:32)
[2022-04-29] MEDS: Acetaminophen 325 MG TAB PO PRN (20:16)
[2022-04-29] MEDS: Cefepime 1 GM in Sodium Chloride 0.9% 100 ML IVPB SCH (21:18)
[2022-04-29] MEDS: Albumin 25% 25 GM/100 ML BOT IVPB SCH (21:19)
[2022-04-29 22:00] LABS: Vancomycin, Trough 8.3 ug/mL
[2022-04-29] MEDS ORDERED: VANCOMYCIN 1.25 GM/250 ML BAG 1.25 GM in Premix Bag 1 BAG IVPB SCH (23:45)
[2022-04-29] MEDS ORDERED: Vancomycin 1 GM in Premix Bag 1 BAG IVPB SCH (23:59)
[2022-04-30 04:39] LABS: #Lymphocytes 0.7 thou/uL (1.20-3.40); #Neutrophils 7.2 thou/uL (1.40-6.50); %Eosinophils 0.5 % (0.0-10.0); %Lymphocytes 8.3 % (21.0-51.0); %Monocytes 11.1 % (0.0-10.0); %Neutrophils 80.1 % (42.0-75.0); Mean Corpuscular Hemoglobin 28.6 pg (27.0-31.0); Mean Corpuscular Volume 92.5 fL (78.0-98.0); Mean Platelet Volume 9.5 fL (7.4-10.4); Platelet Count 113 thou/uL (130-400); RBC Distribution Width 15.6 % (11.5-14.5); Red Blood Cell (RBC) Count 2.81 mill/uL (4.20-5.40)
[2022-04-30 04:57] LABS: Anion Gap 16 mmol/L (10-20); BUN (Urea Nitrogen) 79 mg/dL (9.8-20.1); Calc. Creatinine Clearance 23 mL/min (70-130); Calcium 7.4 mg/dL (7.8-10.44); Carbon Dioxide 19 mmol/L (23-31); Chloride 106 mmol/L (98-107); Estimated GFR 9; Glucose 73 mg/dL (80-115); Potassium 5.3 mmol/L (3.5-5.1); Sodium 136 mmol/L (136-145)
[2022-04-30] MEDS: Heparin 5,000 UNITS/ML VIAL SC SCH ×2 (08:27→20:57)
[2022-04-30] MEDS ORDERED: ceFAZolin 2 GM/Dextrose 50 ML 2 GM in Premix Bag 1 BAG IVPB SCH (08:30)
[2022-04-30] MEDS ORDERED: Heparin 10,000 UNITS/ 10 ML VIAL ONE (14:39)
[2022-04-30] MEDS: Acetaminophen 325 MG TAB PO PRN (15:18)
[2022-04-30] MEDS: Cefepime 1 GM in Sodium Chloride 0.9% 100 ML IVPB SCH (20:57)
[2022-04-30] MEDS: Ondansetron PF 4 MG/2 ML Vial IVP PRN (21:33)
[2022-04-30] MEDS ORDERED: Vancomycin HCl 750 MG in Sodium Chloride 0.9% 250 ML 250 ML IVPB SCH (23:59)
[2022-05-01 07:18] LABS: #Eosinphils 0.1 thou/uL (0.0-0.7); #Monocytes 0.7 thou/uL (0.11-0.59); #Neutrophils 6.2 thou/uL (1.40-6.50); %Basophils 0.3 % (0.0-1.0); %Eosinophils 1.5 % (0.0-10.0); %Lymphocytes 12.7 % (21.0-51.0); %Monocytes 9.1 % (0.0-10.0); %Neutrophils 76.4 % (42.0-75.0); Hemoglobin 8.1 g/dL (12.0-16.0); Mean Corpuscular HGB CONC 30.9 g/dL (32.0-36.0); Mean Corpuscular Hemoglobin 28.5 pg (27.0-31.0); Mean Corpuscular Volume 92.2 fL (78.0-98.0); Mean Platelet Volume 8.9 fL (7.4-10.4); Platelet Count 142 thou/uL (130-400); RBC Distribution Width 15.4 % (11.5-14.5); Red Blood Cell (RBC) Count 2.85 mill/uL (4.20-5.40); White Blood Cell (WBC) Count 8.1 thou/uL (4.8-10.8)
[2022-05-01 07:38] LABS: Anion Gap 16 mmol/L (10-20); BUN (Urea Nitrogen) 56 mg/dL (9.8-20.1); Calc. Creatinine Clearance 27 mL/min (70-130); Calcium 7.4 mg/dL (7.8-10.44); Carbon Dioxide 24 mmol/L (23-31); Chloride 101 mmol/L (98-107); Estimated GFR 11; Glucose 77 mg/dL (80-115); Potassium 4.6 mmol/L (3.5-5.1); Sodium 136 mmol/L (136-145)
[2022-05-01] MEDS ORDERED: Heparin 10,000 UNITS/ 10 ML VIAL ONE (08:38)
[2022-05-01] MEDS: Heparin 5,000 UNITS/ML VIAL SC SCH ×2 (09:05→22:23)
[2022-05-01] MEDS ORDERED: Labetalol HCl 100 MG/20 ML VIAL SLOW IVP PRN (17:35)
[2022-05-01] MEDS: Cefepime 1 GM in Sodium Chloride 0.9% 100 ML IVPB SCH (22:05)
[2022-05-01] MEDS: Carvedilol 6.25 MG TAB PO SCH (22:06)
[2022-05-01] MEDS: Insulin Glargine 30 UNITS/0.3 ML VIAL SC SCH (23:36)
[2022-05-02 00:19] LABS: Vancomycin, Random 18.9 ug/mL (See Comment)
[2022-05-02] MEDS ORDERED: Vancomycin HCl 750 MG in Sodium Chloride 0.9% 250 ML 250 ML IVPB SCH (06:00)
[2022-05-02] MEDS ORDERED: Vancomycin Dialysis Sliding Scale (Wt > 99) FS SCH (07:30)
[2022-05-02] MEDS ORDERED: NIFEdipine XL 90 MG TAB PO SCH (09:00)
[2022-05-02] MEDS ORDERED: Heparin 10,000 UNITS/1 ML VIAL ONE (09:00)
[2022-05-02] MEDS ORDERED: Prevnar 13-Val Conj/PF 0.5 ML SYRINGE IM ONE (09:00)
[2022-05-02] MEDS: Heparin 5,000 UNITS/ML VIAL SC SCH ×3 (09:38→21:27)
[2022-05-02] MEDS: Carvedilol 6.25 MG TAB PO SCH ×2 (09:38→20:16)
[2022-05-02] MEDS: Insulin Glargine 30 UNITS/0.3 ML VIAL SC SCH ×2 (09:55→21:22)
[2022-05-02 11:14] LABS: #Eosinphils 0.2 thou/uL (0.0-0.7); #Lymphocytes 0.9 thou/uL (1.20-3.40); #Monocytes 0.8 thou/uL (0.11-0.59); #Neutrophils 5.2 thou/uL (1.40-6.50); %Basophils 0.2 % (0.0-1.0); %Eosinophils 2.9 % (0.0-10.0); %Lymphocytes 12.2 % (21.0-51.0); %Monocytes 11.7 % (0.0-10.0); Hemoglobin 7.7 g/dL (12.0-16.0); Mean Corpuscular HGB CONC 30.3 g/dL (32.0-36.0); Mean Corpuscular Hemoglobin 28.1 pg (27.0-31.0); Mean Corpuscular Volume 92.7 fL (78.0-98.0); Mean Platelet Volume 8.1 fL (7.4-10.4); Platelet Count 150 thou/uL (130-400); RBC Distribution Width 15.2 % (11.5-14.5); Red Blood Cell (RBC) Count 2.73 mill/uL (4.20-5.40); White Blood Cell (WBC) Count 7.2 thou/uL (4.8-10.8)
[2022-05-02 11:31] LABS: Anion Gap 14 mmol/L (10-20); BUN (Urea Nitrogen) 42 mg/dL (9.8-20.1); Calc. Creatinine Clearance 31 mL/min (70-130); Calcium 7.1 mg/dL (7.8-10.44); Carbon Dioxide 25 mmol/L (23-31); Chloride 102 mmol/L (98-107); Estimated GFR 14; Glucose 89 mg/dL (80-115); Potassium 4.2 mmol/L (3.5-5.1); Sodium 137 mmol/L (136-145)
[2022-05-02 11:49] LABS: #Eosinphils 0.2 thou/uL (0.0-0.7); #Lymphocytes 0.8 thou/uL (1.20-3.40); #Monocytes 0.7 thou/uL (0.11-0.59); #Neutrophils 4.7 thou/uL (1.40-6.50); %Basophils 0.1 % (0.0-1.0); %Lymphocytes 12.9 % (21.0-51.0); %Monocytes 11.6 % (0.0-10.0); %Neutrophils 72.4 % (42.0-75.0); Hemoglobin 7.5 g/dL (12.0-16.0); Mean Corpuscular HGB CONC 29.9 g/dL (32.0-36.0); Mean Corpuscular Hemoglobin 27.5 pg (27.0-31.0); Mean Corpuscular Volume 92.1 fL (78.0-98.0); Mean Platelet Volume 8.3 fL (7.4-10.4); Platelet Count 144 thou/uL (130-400); RBC Distribution Width 15.4 % (11.5-14.5); Red Blood Cell (RBC) Count 2.71 mill/uL (4.20-5.40); White Blood Cell (WBC) Count 6.4 thou/uL (4.8-10.8)
[2022-05-02 12:15] LABS: Anion Gap 12 mmol/L (10-20); BUN (Urea Nitrogen) 42 mg/dL (9.8-20.1); Calc. Creatinine Clearance 31 mL/min (70-130); Calcium 7.1 mg/dL (7.8-10.44); Carbon Dioxide 26 mmol/L (23-31); Chloride 102 mmol/L (98-107); Estimated GFR 14; Glucose 89 mg/dL (80-115); Potassium 4.2 mmol/L (3.5-5.1); Sodium 136 mmol/L (136-145)
[2022-05-02 12:25] LABS: Hypochromia SLIGHT = 6-15 cells (100X) (0-5/hpf); MDiff Complete? YES; Ovalocytes SLIGHT = 2-5 cells (100X) (0-1/hpf); Platelet Morphology Comment Appears Adequate; Polychromasia SLIGHT = 2-3 cells (100X) (0-2/hpf)
[2022-05-02] MEDS ORDERED: Tuberculin PPD 0.1 ML VIAL I-DERMAL SCH ×3 (16:15→16:30)
[2022-05-02] MEDS ORDERED: NOREPINEPHRINE 8 MG/250 ML-D5W 250 ML IVPB SCH (17:45)
[2022-05-02] MEDS: Cefepime 1 GM in Sodium Chloride 0.9% 100 ML IVPB SCH (20:05)
[2022-05-03 05:49] LABS: #Basophils 0.1 thou/uL (0.0-0.2); #Eosinphils 0.1 thou/uL (0.0-0.7); #Monocytes 0.8 thou/uL (0.11-0.59); #Neutrophils 5.5 thou/uL (1.40-6.50); %Basophils 0.7 % (0.0-1.0); %Eosinophils 1.6 % (0.0-10.0); %Lymphocytes 12.7 % (21.0-51.0); %Monocytes 11.3 % (0.0-10.0); %Neutrophils 73.7 % (42.0-75.0); Hemoglobin 7.9 g/dL (12.0-16.0); Mean Corpuscular HGB CONC 30.1 g/dL (32.0-36.0); Mean Corpuscular Hemoglobin 28.1 pg (27.0-31.0); Mean Corpuscular Volume 93.4 fL (78.0-98.0); Platelet Count 157 thou/uL (130-400); RBC Distribution Width 15.1 % (11.5-14.5); White Blood Cell (WBC) Count 7.5 thou/uL (4.8-10.8)
[2022-05-03 06:06] LABS: Anion Gap 14 mmol/L (10-20); BUN (Urea Nitrogen) 36 mg/dL (9.8-20.1); Calc. Creatinine Clearance 33 mL/min (70-130); Calcium 7.1 mg/dL (7.8-10.44); Carbon Dioxide 25 mmol/L (23-31); Chloride 100 mmol/L (98-107); Estimated GFR 15; Glucose 82 mg/dL (80-115); Sodium 135 mmol/L (136-145)
[2022-05-03 06:13] LABS: Vancomycin, Random 22.2 ug/mL (See Comment)
[2022-05-03] MEDS ORDERED: Bupivacaine PF 0.5% 30 ML VIAL ONE (06:53)
[2022-05-03] MEDS ORDERED: Iopamidol 0 ML ONE (06:53)
[2022-05-03] MEDS ORDERED: Protamine Sulfate 50 MG/5 ML VIAL ONE (06:53)
[2022-05-03] MEDS ORDERED: Heparin 5,000 UNITS/ML VIAL ONE (06:53)
[2022-05-03] MEDS ORDERED: Lidocaine 1% w/Epinephrine 1:200K 30 ML VIAL ONE (06:53)
[2022-05-03] MEDS ORDERED: Phenylephrine 10 MG/ML VIAL ONE ×2 (07:09→08:05)
[2022-05-03] MEDS ORDERED: fentaNYL Citrate/PF 100 MCG/2 ML SYRINGE ONE (07:09)
[2022-05-03] MEDS ORDERED: Ketamine 50 MG/ML (10ML VIAL) ONE (07:16)
[2022-05-03] MEDS ORDERED: Heparin 10,000 UNITS/ 10 ML VIAL ONE (07:18)
[2022-05-03] MEDS ORDERED: Tuberculin PPD 0.1 ML VIAL I-DERMAL SCH (08:00)
[2022-05-03] MEDS ORDERED: Rocuronium Bromide 10 MG/ML (10ML VIAL) ONE (08:05)
[2022-05-03] MEDS ORDERED: Glycopyrrolate 0.2 MG/ML 5 ML SYRINGE ONE (08:05)
[2022-05-03] MEDS ORDERED: PROPOFOL 200 MG/20 ML VIAL ONE (08:05)
[2022-05-03] MEDS ORDERED: Lidocaine 1% PF 5 ML VIAL ONE (08:05)
[2022-05-03] MEDS ORDERED: ePHEDrine 50 MG/ML VIAL ONE (08:05)
[2022-05-03] MEDS ORDERED: Promethazine HCl 25 MG/ML VIAL IM PRN (09:10)
[2022-05-03] MEDS ORDERED: Promethazine HCl 25 MG/ML VIAL IVPB PRN (09:10)
[2022-05-03] MEDS ORDERED: Ondansetron HCl/PF 4 MG/2 ML Vial IVP PRN (09:10)
[2022-05-03] MEDS ORDERED: ePHEDrine Sulfate 50 MG/10 ML VIAL ONE (10:17)
[2022-05-03] MEDS ORDERED: SUGAMMADEX SODIUM 200 MG/2 ML VIAL ONE (10:21)
[2022-05-03] MEDS ORDERED: Dextrose 50% Abboject 50 ML SYRINGE ONE ×2 (11:05→11:06)
[2022-05-03] MEDS: Insulin Glargine 30 UNITS/0.3 ML VIAL SC SCH ×2 (12:48→21:57)
[2022-05-03] MEDS: Heparin 5,000 UNITS/ML VIAL SC SCH ×2 (12:48→21:42)
[2022-05-03] MEDS ORDERED: Metoprolol Tartrate 50 MG TAB PO SCH (18:15)
[2022-05-03] MEDS: Cefepime 1 GM in Sodium Chloride 0.9% 100 ML IVPB SCH (20:23)
[2022-05-04] MEDS: Acetaminophen 325 MG TAB PO PRN ×2 (00:25→04:27)
[2022-05-04 03:39] LABS: #Eosinphils 0.1 thou/uL (0.0-0.7); #Lymphocytes 0.9 thou/uL (1.20-3.40); #Monocytes 0.9 thou/uL (0.11-0.59); #Neutrophils 5.9 thou/uL (1.40-6.50); %Eosinophils 1.8 % (0.0-10.0); %Lymphocytes 10.9 % (21.0-51.0); %Monocytes 10.9 % (0.0-10.0); %Neutrophils 76.4 % (42.0-75.0); Hemoglobin 7.7 g/dL (12.0-16.0); Mean Corpuscular HGB CONC 30.4 g/dL (32.0-36.0); Mean Corpuscular Hemoglobin 28.6 pg (27.0-31.0); Mean Corpuscular Volume 93.9 fL (78.0-98.0); Platelet Count 138 thou/uL (130-400); RBC Distribution Width 15.1 % (11.5-14.5); Red Blood Cell (RBC) Count 2.69 mill/uL (4.20-5.40); White Blood Cell (WBC) Count 7.8 thou/uL (4.8-10.8)
[2022-05-04 03:59] LABS: Anion Gap 14 mmol/L (10-20); BUN (Urea Nitrogen) 40 mg/dL (9.8-20.1); Calc. Creatinine Clearance 29 mL/min (70-130); Calcium 7.4 mg/dL (7.8-10.44); Carbon Dioxide 25 mmol/L (23-31); Chloride 100 mmol/L (98-107); Estimated GFR 13; Glucose 67 mg/dL (80-115); Potassium 4.3 mmol/L (3.5-5.1); Sodium 135 mmol/L (136-145)
[2022-05-04] MEDS ORDERED: HYDROcodone/Acetaminophen 5/325 mg Tablet PO SCH (04:30)
[2022-05-04 07:17] LABS: Vancomycin, Random 19.9 ug/mL (See Comment)
[2022-05-04] MEDS ORDERED: READ PPD TEST SITE PO SCH (09:00)
[2022-05-04] MEDS: Heparin 5,000 UNITS/ML VIAL SC SCH ×2 (09:03→21:04)
[2022-05-04] MEDS: Insulin Glargine 30 UNITS/0.3 ML VIAL SC SCH ×3 (09:04→21:30)
[2022-05-04] MEDS ORDERED: Carvedilol 6.25 MG TAB PO SCH (10:45)
[2022-05-04] MEDS: Ibuprofen 800 MG TAB PO PRN ×2 (11:00→21:35)
[2022-05-04] MEDS ORDERED: Heparin 10,000 UNITS/ 10 ML VIAL ONE (13:37)
[2022-05-04] MEDS ORDERED: Epoetin (ESRD) 20,000 UNITS/ML SC SCH (14:30)
[2022-05-04] MEDS ORDERED: Vancomycin HCl 750 MG in Sodium Chloride 0.9% 250 ML 250 ML IVPB SCH ×2 (17:00→21:00)
[2022-05-04] MEDS: Cefepime 1 GM in Sodium Chloride 0.9% 100 ML IVPB SCH (21:02)
[2022-05-04] MEDS: Carvedilol 6.25 MG TAB PO SCH (21:03)
[2022-05-05 04:36] LABS: Anion Gap 13 mmol/L (10-20); BUN (Urea Nitrogen) 28 mg/dL (9.8-20.1); Calc. Creatinine Clearance 37 mL/min (70-130); Calcium 7.6 mg/dL (7.8-10.44); Carbon Dioxide 28 mmol/L (23-31); Chloride 97 mmol/L (98-107); Estimated GFR 17; Glucose 107 mg/dL (80-115); Potassium 3.9 mmol/L (3.5-5.1); Sodium 134 mmol/L (136-145)
[2022-05-05 07:58] LABS: #Eosinphils 0.2 thou/uL (0.0-0.7); #Monocytes 0.9 thou/uL (0.11-0.59); #Neutrophils 7.9 thou/uL (1.40-6.50); %Basophils 0.3 % (0.0-1.0); %Eosinophils 1.7 % (0.0-10.0); Hemoglobin 8.9 g/dL (12.0-16.0); Mean Corpuscular HGB CONC 30.8 g/dL (32.0-36.0); Mean Corpuscular Hemoglobin 28.1 pg (27.0-31.0); Mean Corpuscular Volume 91.3 fL (78.0-98.0); Mean Platelet Volume 8.2 fL (7.4-10.4); Platelet Count 140 thou/uL (130-400); RBC Distribution Width 15.6 % (11.5-14.5); Red Blood Cell (RBC) Count 3.15 mill/uL (4.20-5.40)
[2022-05-05] MEDS ORDERED: READ PPD TEST SITE PO SCH ×2 (08:00→12:00)
[2022-05-05] MEDS: Carvedilol 6.25 MG TAB PO SCH ×2 (08:09→20:39)
[2022-05-05] MEDS: Heparin 5,000 UNITS/ML VIAL SC SCH ×2 (08:11→20:40)
[2022-05-05] MEDS: Insulin Glargine 30 UNITS/0.3 ML VIAL SC SCH ×2 (08:13→20:41)
[2022-05-05 08:15] LABS: Vancomycin, Random 22.3 ug/mL (See Comment)
[2022-05-05] MEDS: Ibuprofen 800 MG TAB PO PRN (09:17)
[2022-05-05] MEDS ORDERED: Tuberculin PPD 0.1 ML VIAL I-DERMAL SCH (14:15)
[2022-05-05] MEDS: Cefepime 1 GM in Sodium Chloride 0.9% 100 ML IVPB SCH (20:40)
[2022-05-06] MEDS: Ibuprofen 800 MG TAB PO PRN (02:59)
[2022-05-06 07:33] LABS: #Eosinphils 0.2 thou/uL (0.0-0.7); #Lymphocytes 1.1 thou/uL (1.20-3.40); #Neutrophils 7.7 thou/uL (1.40-6.50); %Basophils 0.2 % (0.0-1.0); %Eosinophils 1.9 % (0.0-10.0); %Lymphocytes 11.3 % (21.0-51.0); %Monocytes 9.6 % (0.0-10.0); %Neutrophils 76.9 % (42.0-75.0); Hemoglobin 8.4 g/dL (12.0-16.0); Mean Corpuscular HGB CONC 29.4 g/dL (32.0-36.0); Mean Corpuscular Hemoglobin 27.1 pg (27.0-31.0); Mean Platelet Volume 7.9 fL (7.4-10.4); Platelet Count 139 thou/uL (130-400); RBC Distribution Width 15.2 % (11.5-14.5); Red Blood Cell (RBC) Count 3.11 mill/uL (4.20-5.40)
[2022-05-06 07:51] LABS: Vancomycin, Random 20.1 ug/mL (See Comment)
[2022-05-06 07:51] LABS: Anion Gap 14 mmol/L (10-20); BUN (Urea Nitrogen) 39 mg/dL (9.8-20.1); Calc. Creatinine Clearance 29 mL/min (70-130); Calcium 7.8 mg/dL (7.8-10.44); Carbon Dioxide 27 mmol/L (23-31); Chloride 99 mmol/L (98-107); Estimated GFR 12; Glucose 94 mg/dL (80-115); Potassium 4.1 mmol/L (3.5-5.1); Sodium 136 mmol/L (136-145)
[2022-05-06 07:53] LABS: Anisocytosis SLIGHT = 6-15 cells (100X) (0-5/hpf); MDiff Complete? YES; Ovalocytes SLIGHT = 2-5 cells (100X) (0-1/hpf); Platelet Morphology Comment Appears Adequate; Polychromasia SLIGHT = 2-3 cells (100X) (0-2/hpf)
[2022-05-06] MEDS: Heparin 5,000 UNITS/ML VIAL SC SCH ×2 (07:57→21:16)
[2022-05-06] MEDS: Insulin Glargine 30 UNITS/0.3 ML VIAL SC SCH ×2 (07:58→22:47)
[2022-05-06] MEDS: Carvedilol 6.25 MG TAB PO SCH ×2 (07:58→21:23)
[2022-05-06] MEDS: Cefepime 1 GM in Sodium Chloride 0.9% 100 ML IVPB SCH (21:16)
[2022-05-07] MEDS: Ibuprofen 800 MG TAB PO PRN ×2 (01:32→08:39)
[2022-05-07] MEDS: Acetaminophen 325 MG TAB PO PRN (03:47)
[2022-05-07] MEDS: Carvedilol 6.25 MG TAB PO SCH ×2 (07:43→20:17)
[2022-05-07] MEDS: Insulin Glargine 30 UNITS/0.3 ML VIAL SC SCH ×2 (07:45→19:43)
[2022-05-07 07:52] LABS: #Eosinphils 0.2 thou/uL (0.0-0.7); #Lymphocytes 1.2 thou/uL (1.20-3.40); #Monocytes 0.9 thou/uL (0.11-0.59); #Neutrophils 6.5 thou/uL (1.40-6.50); %Basophils 0.3 % (0.0-1.0); %Eosinophils 2.4 % (0.0-10.0); %Lymphocytes 13.4 % (21.0-51.0); %Monocytes 9.8 % (0.0-10.0); %Neutrophils 74.1 % (42.0-75.0); Hemoglobin 8.3 g/dL (12.0-16.0); Mean Corpuscular HGB CONC 30.1 g/dL (32.0-36.0); Mean Corpuscular Hemoglobin 27.6 pg (27.0-31.0); Mean Corpuscular Volume 91.7 fL (78.0-98.0); Mean Platelet Volume 7.9 fL (7.4-10.4); Platelet Count 146 thou/uL (130-400); RBC Distribution Width 15.1 % (11.5-14.5); White Blood Cell (WBC) Count 8.7 thou/uL (4.8-10.8)
[2022-05-07] MEDS: Heparin 5,000 UNITS/ML VIAL SC SCH ×2 (08:05→20:17)
[2022-05-07 08:07] LABS: Vancomycin, Random 18.3 ug/mL (See Comment)
[2022-05-07 08:10] LABS: Anion Gap 15 mmol/L (10-20); BUN (Urea Nitrogen) 46 mg/dL (9.8-20.1); Calc. Creatinine Clearance 29 mL/min (70-130); Carbon Dioxide 25 mmol/L (23-31); Chloride 100 mmol/L (98-107); Estimated GFR 11; Glucose 75 mg/dL (80-115); Potassium 4.4 mmol/L (3.5-5.1); Sodium 136 mmol/L (136-145)
[2022-05-07] MEDS ORDERED: Heparin 10,000 UNITS/ 10 ML VIAL ONE (08:56)
[2022-05-07] MEDS ORDERED: READ PPD TEST SITE PO SCH (14:00)
[2022-05-07] MEDS ORDERED: Vancomycin HCl 750 MG in Sodium Chloride 0.9% 250 ML 250 ML IVPB SCH (17:00)
[2022-05-07] MEDS: Cefepime 1 GM in Sodium Chloride 0.9% 100 ML IVPB SCH (20:16)
[2022-05-08 06:29] LABS: Anion Gap 12 mmol/L (10-20); BUN (Urea Nitrogen) 28 mg/dL (9.8-20.1); Calc. Creatinine Clearance 37 mL/min (70-130); Calcium 8.1 mg/dL (7.8-10.44); Carbon Dioxide 30 mmol/L (23-31); Chloride 100 mmol/L (98-107); Estimated GFR 15; Glucose 100 mg/dL (80-115); Potassium 4.1 mmol/L (3.5-5.1); Sodium 138 mmol/L (136-145)
[2022-05-08 06:58] LABS: #Eosinphils 0.2 thou/uL (0.0-0.7); #Lymphocytes 1.1 thou/uL (1.20-3.40); #Monocytes 0.9 thou/uL (0.11-0.59); #Neutrophils 6.3 thou/uL (1.40-6.50); %Basophils 0.4 % (0.0-1.0); %Eosinophils 2.1 % (0.0-10.0); %Lymphocytes 12.5 % (21.0-51.0); %Neutrophils 73.9 % (42.0-75.0); Hemoglobin 8.3 g/dL (12.0-16.0); Mean Corpuscular HGB CONC 30.6 g/dL (32.0-36.0); Mean Corpuscular Hemoglobin 28.4 pg (27.0-31.0); Mean Corpuscular Volume 92.6 fL (78.0-98.0); Mean Platelet Volume 8.1 fL (7.4-10.4); Platelet Count 151 thou/uL (130-400); Red Blood Cell (RBC) Count 2.94 mill/uL (4.20-5.40); White Blood Cell (WBC) Count 8.5 thou/uL (4.8-10.8)
[2022-05-08] MEDS: Insulin Glargine 30 UNITS/0.3 ML VIAL SC SCH ×2 (09:38→21:05)
[2022-05-08] MEDS: Carvedilol 6.25 MG TAB PO SCH ×2 (09:39→21:03)
[2022-05-08] MEDS: Heparin 5,000 UNITS/ML VIAL SC SCH ×2 (09:39→21:05)
[2022-05-08] MEDS: Bisacodyl 5 MG TAB PO PRN (14:54)
[2022-05-08] MEDS: Cefepime 1 GM in Sodium Chloride 0.9% 100 ML IVPB SCH (21:02)
[2022-05-08] MEDS: Ondansetron PF 4 MG/2 ML Vial IVP PRN (21:11)
[2022-05-08] MEDS: Ibuprofen 800 MG TAB PO PRN (22:21)
[2022-05-09 05:17] LABS: #Eosinphils 0.1 thou/uL (0.0-0.7); #Lymphocytes 0.9 thou/uL (1.20-3.40); #Monocytes 0.7 thou/uL (0.11-0.59); #Neutrophils 8.4 thou/uL (1.40-6.50); %Basophils 0.1 % (0.0-1.0); %Eosinophils 0.8 % (0.0-10.0); %Lymphocytes 9.2 % (21.0-51.0); %Monocytes 7.2 % (0.0-10.0); %Neutrophils 82.8 % (42.0-75.0); Hemoglobin 8.4 g/dL (12.0-16.0); Mean Corpuscular HGB CONC 30.5 g/dL (32.0-36.0); Mean Corpuscular Hemoglobin 28.1 pg (27.0-31.0); Mean Corpuscular Volume 91.9 fL (78.0-98.0); Mean Platelet Volume 7.7 fL (7.4-10.4); Platelet Count 152 thou/uL (130-400); Red Blood Cell (RBC) Count 2.98 mill/uL (4.20-5.40); White Blood Cell (WBC) Count 10.1 thou/uL (4.8-10.8)
[2022-05-09 05:36] LABS: Anion Gap 15 mmol/L (10-20); BUN (Urea Nitrogen) 33 mg/dL (9.8-20.1); Calc. Creatinine Clearance 33 mL/min (70-130); Calcium 8.5 mg/dL (7.8-10.44); Carbon Dioxide 27 mmol/L (23-31); Chloride 100 mmol/L (98-107); Estimated GFR 13; Glucose 97 mg/dL (80-115); Potassium 4.6 mmol/L (3.5-5.1); Sodium 137 mmol/L (136-145)
[2022-05-09] MEDS: Insulin Glargine 30 UNITS/0.3 ML VIAL SC SCH ×2 (08:35→20:31)
[2022-05-09] MEDS: Heparin 5,000 UNITS/ML VIAL SC SCH ×2 (09:19→20:14)
[2022-05-09] MEDS: Carvedilol 6.25 MG TAB PO SCH ×2 (09:20→20:15)
[2022-05-09] MEDS ORDERED: Heparin 10,000 UNITS/ 10 ML VIAL ONE (09:24)
[2022-05-09 09:25] LABS: Phosphorus 5.3 mg/dL (2.3-4.7)
[2022-05-09] MEDS: Ibuprofen 800 MG TAB PO PRN ×2 (14:12→22:02)
[2022-05-09] MEDS: Bisacodyl 5 MG TAB PO PRN (14:12)
[2022-05-09] MEDS: Acetaminophen 325 MG TAB PO PRN (14:12)
[2022-05-09] MEDS ORDERED: Vancomycin HCl 500 MG in Sodium Chloride 0.9% 100 ML IVPB SCH (17:00)
[2022-05-09] MEDS: Cefepime 1 GM in Sodium Chloride 0.9% 100 ML IVPB SCH (20:12)
[2022-05-10] MEDS: Polyethylene Glycol 3350 17 GM Packet PO PRN (00:22)
[2022-05-10] MEDS: Acetaminophen 325 MG TAB PO PRN (00:22)
[2022-05-10 06:06] LABS: #Eosinphils 0.1 thou/uL (0.0-0.7); #Lymphocytes 0.6 thou/uL (1.20-3.40); #Monocytes 0.7 thou/uL (0.11-0.59); #Neutrophils 9.6 thou/uL (1.40-6.50); %Basophils 0.3 % (0.0-1.0); %Eosinophils 0.7 % (0.0-10.0); %Lymphocytes 5.8 % (21.0-51.0); %Monocytes 6.2 % (0.0-10.0); Hemoglobin 8.1 g/dL (12.0-16.0); Mean Corpuscular HGB CONC 29.9 g/dL (32.0-36.0); Mean Corpuscular Hemoglobin 27.7 pg (27.0-31.0); Mean Corpuscular Volume 92.7 fL (78.0-98.0); Mean Platelet Volume 7.9 fL (7.4-10.4); Platelet Count 148 thou/uL (130-400); RBC Distribution Width 14.9 % (11.5-14.5); Red Blood Cell (RBC) Count 2.92 mill/uL (4.20-5.40)
[2022-05-10 06:24] LABS: Anion Gap 13 mmol/L (10-20); BUN (Urea Nitrogen) 20 mg/dL (9.8-20.1); Calc. Creatinine Clearance 37 mL/min (70-130); Calcium 8.2 mg/dL (7.8-10.44); Carbon Dioxide 29 mmol/L (23-31); Chloride 98 mmol/L (98-107); Estimated GFR 18; Glucose 146 mg/dL (80-115); Potassium 4.1 mmol/L (3.5-5.1); Sodium 136 mmol/L (136-145)
[2022-05-10] MEDS: Carvedilol 6.25 MG TAB PO SCH ×2 (08:41→20:08)
[2022-05-10] MEDS: Insulin Glargine 30 UNITS/0.3 ML VIAL SC SCH ×2 (08:42→20:16)
[2022-05-10] MEDS: Heparin 5,000 UNITS/ML VIAL SC SCH ×2 (08:42→20:07)
[2022-05-10] MEDS: Ondansetron PF 4 MG/2 ML Vial IVP PRN (12:25)
[2022-05-10] MEDS: Cefepime 1 GM in Sodium Chloride 0.9% 100 ML IVPB SCH (20:07)
[2022-05-10] MEDS: Ibuprofen 800 MG TAB PO PRN (20:08)
[2022-05-11] MEDS: Ondansetron PF 4 MG/2 ML Vial IVP PRN ×2 (00:32→16:50)
[2022-05-11] MEDS: Ciprofloxacin 500 MG TAB PO SCH ×2 (05:50→19:59)
[2022-05-11 06:17] LABS: #Eosinphils 0.2 thou/uL (0.0-0.7); #Lymphocytes 1.3 thou/uL (1.20-3.40); #Monocytes 0.7 thou/uL (0.11-0.59); #Neutrophils 7.7 thou/uL (1.40-6.50); %Basophils 0.2 % (0.0-1.0); %Eosinophils 1.7 % (0.0-10.0); %Lymphocytes 12.8 % (21.0-51.0); %Monocytes 7.5 % (0.0-10.0); %Neutrophils 77.9 % (42.0-75.0); Hemoglobin 8.1 g/dL (12.0-16.0); Mean Corpuscular HGB CONC 30.1 g/dL (32.0-36.0); Mean Corpuscular Hemoglobin 27.9 pg (27.0-31.0); Mean Corpuscular Volume 92.7 fL (78.0-98.0); Mean Platelet Volume 8.1 fL (7.4-10.4); Platelet Count 175 thou/uL (130-400); RBC Distribution Width 15.3 % (11.5-14.5); White Blood Cell (WBC) Count 9.9 thou/uL (4.8-10.8)
[2022-05-11] MEDS: Ibuprofen 800 MG TAB PO PRN ×3 (06:34→22:55)
[2022-05-11 06:37] LABS: Anion Gap 15 mmol/L (10-20); BUN (Urea Nitrogen) 25 mg/dL (9.8-20.1); Calc. Creatinine Clearance 29 mL/min (70-130); Calcium 8.3 mg/dL (7.8-10.44); Carbon Dioxide 28 mmol/L (23-31); Chloride 98 mmol/L (98-107); Estimated GFR 13; Glucose 80 mg/dL (80-115); Sodium 137 mmol/L (136-145)
[2022-05-11 07:20] LABS: Vancomycin, Random 18.7 ug/mL (See Comment)
[2022-05-11] MEDS: Carvedilol 6.25 MG TAB PO SCH (09:04)
[2022-05-11] MEDS: Insulin Glargine 30 UNITS/0.3 ML VIAL SC SCH ×2 (09:05→19:59)
[2022-05-11] MEDS: Acetaminophen 325 MG TAB PO PRN (09:06)
[2022-05-11] MEDS: Heparin 5,000 UNITS/ML VIAL SC SCH ×2 (09:07→20:00)
[2022-05-11] MEDS ORDERED: Heparin 10,000 UNITS/ 10 ML VIAL ONE (09:36)
[2022-05-11] MEDS: Carvedilol 25 MG TAB PO SCH ×2 (16:47→16:57)
[2022-05-11] MEDS: NIFEdipine XL 90 MG TAB PO SCH (16:47)
[2022-05-11] MEDS ORDERED: Vancomycin HCl 750 MG in Sodium Chloride 0.9% 250 ML 250 ML IVPB SCH (17:00)
[2022-05-12] MEDS: Ciprofloxacin 500 MG TAB PO SCH (06:09)
[2022-05-12] MEDS: Ibuprofen 800 MG TAB PO PRN (06:09)
[2022-05-12] MEDS: Sodium Chloride 0.9% 1,000 ML IV SCH ×2 (06:16→18:57)
[2022-05-12] MEDS: Carvedilol 25 MG TAB PO SCH ×2 (09:34→16:59)
[2022-05-12] MEDS: NIFEdipine XL 90 MG TAB PO SCH (09:34)
[2022-05-12] MEDS: Insulin Glargine 30 UNITS/0.3 ML VIAL SC SCH ×2 (09:37→20:11)
[2022-05-12] MEDS: Heparin 5,000 UNITS/ML VIAL SC SCH ×2 (09:38→20:10)
[2022-05-13] MEDS: Ciprofloxacin 500 MG TAB PO SCH (05:49)
[2022-05-13] MEDS: Ibuprofen 800 MG TAB PO PRN ×3 (08:52→20:16)
[2022-05-13] MEDS: NIFEdipine XL 90 MG TAB PO SCH (08:52)
[2022-05-13] MEDS: Carvedilol 25 MG TAB PO SCH ×2 (08:52→18:24)
[2022-05-13] MEDS: Heparin 5,000 UNITS/ML VIAL SC SCH ×2 (08:53→20:19)
[2022-05-13] MEDS: Insulin Glargine 30 UNITS/0.3 ML VIAL SC SCH ×2 (08:54→20:16)
[2022-05-13] MEDS: Sodium Chloride 0.9% 1,000 ML IV SCH ×2 (10:33→20:45)
[2022-05-13] MEDS: Sevelamer Carbonate 800 MG TAB PO SCH ×2 (11:53→18:23)
[2022-05-14] MEDS: Ciprofloxacin 500 MG TAB PO SCH (05:12)
[2022-05-14] MEDS: Sodium Chloride 0.9% 1,000 ML IV SCH (05:12)
[2022-05-14] MEDS: Ibuprofen 800 MG TAB PO PRN ×2 (05:33→13:22)
[2022-05-14 05:56] LABS: #Eosinphils 0.2 thou/uL (0.0-0.7); #Lymphocytes 1.3 thou/uL (1.20-3.40); #Monocytes 0.7 thou/uL (0.11-0.59); #Neutrophils 6.1 thou/uL (1.40-6.50); %Basophils 0.5 % (0.0-1.0); %Eosinophils 1.8 % (0.0-10.0); %Lymphocytes 15.9 % (21.0-51.0); %Monocytes 8.8 % (0.0-10.0); Mean Corpuscular HGB CONC 30.2 g/dL (32.0-36.0); Mean Corpuscular Hemoglobin 28.2 pg (27.0-31.0); Mean Corpuscular Volume 93.6 fL (78.0-98.0); Mean Platelet Volume 8.1 fL (7.4-10.4); Platelet Count 175 thou/uL (130-400); RBC Distribution Width 15.5 % (11.5-14.5); Red Blood Cell (RBC) Count 2.83 mill/uL (4.20-5.40); White Blood Cell (WBC) Count 8.4 thou/uL (4.8-10.8)
[2022-05-14 06:19] LABS: ALT (SGPT) Less than 7 U/L (8-55); AST (SGOT) 9 U/L (5-34); Albumin 2.6 g/dL (3.4-4.8); Alkaline Phosphatase 107 U/L (40-110); Anion Gap 15 mmol/L (10-20); BUN (Urea Nitrogen) 28 mg/dL (9.8-20.1); Bilirubin, Total 0.3 mg/dL (0.2-1.2); Calc. Creatinine Clearance 10 mL/min (70-130); Calcium 7.6 mg/dL (7.8-10.44); Carbon Dioxide 25 mmol/L (23-31); Chloride 98 mmol/L (98-107); Estimated GFR 10; Globulin 3.6 g/dL (2.4-3.5); Glucose 88 mg/dL (80-115); Potassium 4.4 mmol/L (3.5-5.1); Protein, Total 6.2 g/dL (5.8-8.1); Sodium 134 mmol/L (136-145)
[2022-05-14] MEDS ORDERED: Heparin 10,000 UNITS/ 10 ML VIAL ONE (09:29)
[2022-05-14] MEDS: Sevelamer Carbonate 800 MG TAB PO SCH ×3 (13:22→19:11)
[2022-05-14] MEDS: Carvedilol 25 MG TAB PO SCH ×2 (13:24→19:11)
[2022-05-14] MEDS: Heparin 5,000 UNITS/ML VIAL SC SCH ×2 (13:24→20:43)
[2022-05-14] MEDS: Insulin Glargine 30 UNITS/0.3 ML VIAL SC SCH ×2 (13:25→20:43)
[2022-05-14] MEDS: NIFEdipine XL 90 MG TAB PO SCH (13:26)
[2022-05-15] MEDS: Ciprofloxacin 500 MG TAB PO SCH (05:56)
[2022-05-15] MEDS: Sodium Chloride 0.9% 1,000 ML IV SCH ×2 (05:57→18:17)
[2022-05-15] MEDS: NIFEdipine XL 90 MG TAB PO SCH (08:41)
[2022-05-15] MEDS: Ibuprofen 800 MG TAB PO PRN (08:41)
[2022-05-15] MEDS: Sevelamer Carbonate 800 MG TAB PO SCH ×3 (08:43→19:44)
[2022-05-15] MEDS: Carvedilol 25 MG TAB PO SCH ×2 (08:43→19:44)
[2022-05-15] MEDS: Acetaminophen 325 MG TAB PO PRN (11:18)
[2022-05-15] MEDS: Insulin Glargine 30 UNITS/0.3 ML VIAL SC SCH ×2 (11:27→21:10)
[2022-05-15] MEDS: Heparin 5,000 UNITS/ML VIAL SC SCH ×2 (11:28→21:08)
[2022-05-15] MEDS: Gabapentin 100 MG CAP PO SCH ×3 (13:50→21:07)
[2022-05-16] MEDS: Ibuprofen 800 MG TAB PO PRN ×2 (02:49→13:47)
[2022-05-16] MEDS: Sodium Chloride 0.9% 1,000 ML IV SCH ×2 (03:15→15:44)
[2022-05-16] MEDS: Acetaminophen 325 MG TAB PO PRN (05:04)
[2022-05-16] MEDS: Ciprofloxacin 500 MG TAB PO SCH (05:04)
[2022-05-16] MEDS: Carvedilol 25 MG TAB PO SCH ×2 (08:57→17:55)
[2022-05-16] MEDS: Heparin 5,000 UNITS/ML VIAL SC SCH ×2 (08:57→21:16)
[2022-05-16] MEDS: Insulin Glargine 30 UNITS/0.3 ML VIAL SC SCH ×2 (08:57→21:16)
[2022-05-16] MEDS: Sevelamer Carbonate 800 MG TAB PO SCH ×4 (08:57→17:55)
[2022-05-16] MEDS: Gabapentin 100 MG CAP PO SCH ×3 (08:57→21:16)
[2022-05-16] MEDS: NIFEdipine XL 90 MG TAB PO SCH (08:58)
[2022-05-17] MEDS: Ciprofloxacin 500 MG TAB PO SCH (05:41)
[2022-05-17] MEDS: Sodium Chloride 0.9% 1,000 ML IV SCH ×2 (05:43→22:10)
[2022-05-17] MEDS: Heparin 5,000 UNITS/ML VIAL SC SCH ×2 (10:32→22:16)
[2022-05-17] MEDS: Carvedilol 25 MG TAB PO SCH ×2 (10:32→17:29)
[2022-05-17] MEDS: Sevelamer Carbonate 800 MG TAB PO SCH ×3 (10:33→17:30)
[2022-05-17] MEDS: NIFEdipine XL 90 MG TAB PO SCH (10:33)
[2022-05-17] MEDS: Gabapentin 100 MG CAP PO SCH ×3 (10:33→22:14)
[2022-05-17] MEDS: Insulin Glargine 30 UNITS/0.3 ML VIAL SC SCH ×2 (10:34→22:09)
[2022-05-17] MEDS: Ibuprofen 800 MG TAB PO PRN (22:13)
[2022-05-18] MEDS: Sodium Chloride 0.9% 1,000 ML IV SCH ×2 (09:33→21:47)
[2022-05-18] MEDS: Insulin Glargine 30 UNITS/0.3 ML VIAL SC SCH ×2 (10:30→21:04)
[2022-05-18] MEDS: Gabapentin 100 MG CAP PO SCH ×3 (10:30→21:02)
[2022-05-18] MEDS: Carvedilol 25 MG TAB PO SCH ×2 (10:30→18:07)
[2022-05-18] MEDS: Sevelamer Carbonate 800 MG TAB PO SCH ×3 (10:30→15:34)
[2022-05-18] MEDS: NIFEdipine XL 90 MG TAB PO SCH (10:30)
[2022-05-18] MEDS: Heparin 5,000 UNITS/ML VIAL SC SCH ×2 (10:30→21:04)
[2022-05-18] MEDS: Ibuprofen 800 MG TAB PO PRN (15:34)
[2022-05-18] MEDS: Acetaminophen 325 MG TAB PO PRN (18:10)
[2022-05-19] MEDS: Acetaminophen 325 MG TAB PO PRN (01:47)
[2022-05-19] MEDS: Polyethylene Glycol 3350 17 GM Packet PO PRN (04:58)
[2022-05-19 05:38] LABS: #Eosinphils 0.1 thou/uL (0.0-0.7); #Lymphocytes 1.1 thou/uL (1.20-3.40); #Monocytes 0.7 thou/uL (0.11-0.59); #Neutrophils 4.2 thou/uL (1.40-6.50); %Basophils 0.2 % (0.0-1.0); %Eosinophils 2.2 % (0.0-10.0); %Lymphocytes 17.9 % (21.0-51.0); %Monocytes 11.8 % (0.0-10.0); %Neutrophils 67.9 % (42.0-75.0); Hemoglobin 7.7 g/dL (12.0-16.0); Mean Corpuscular HGB CONC 29.3 g/dL (32.0-36.0); Mean Corpuscular Hemoglobin 26.8 pg (27.0-31.0); Mean Corpuscular Volume 91.4 fL (78.0-98.0); Mean Platelet Volume 8.3 fL (7.4-10.4); Platelet Count 150 thou/uL (130-400); RBC Distribution Width 14.6 % (11.5-14.5); Red Blood Cell (RBC) Count 2.88 mill/uL (4.20-5.40); White Blood Cell (WBC) Count 6.2 thou/uL (4.8-10.8)
[2022-05-19 05:59] LABS: Anion Gap 13 mmol/L (10-20); BUN (Urea Nitrogen) 32 mg/dL (9.8-20.1); Calc. Creatinine Clearance 32 mL/min (70-130); Calcium 7.8 mg/dL (7.8-10.44); Carbon Dioxide 30 mmol/L (23-31); Chloride 98 mmol/L (98-107); Estimated GFR 15; Glucose 160 mg/dL (80-115); Potassium 3.9 mmol/L (3.5-5.1); Sodium 137 mmol/L (136-145)
[2022-05-19] MEDS: Sodium Chloride 0.9% 1,000 ML IV SCH (09:01)
[2022-05-19] MEDS: Carvedilol 25 MG TAB PO SCH ×2 (09:38→16:25)
[2022-05-19] MEDS: NIFEdipine XL 90 MG TAB PO SCH (09:39)
[2022-05-19] MEDS: Sevelamer Carbonate 800 MG TAB PO SCH ×3 (09:39→19:40)
[2022-05-19] MEDS: Gabapentin 100 MG CAP PO SCH ×3 (09:39→21:10)
[2022-05-19] MEDS: Heparin 5,000 UNITS/ML VIAL SC SCH ×2 (09:40→21:32)
[2022-05-19] MEDS: Insulin Glargine 30 UNITS/0.3 ML VIAL SC SCH ×2 (09:46→21:33)
[2022-05-19] MEDS: HumaLOG 300 UNITS/3 ML VIAL SC PRN (14:27)
[2022-05-20] MEDS: Acetaminophen 325 MG TAB PO PRN (03:09)
[2022-05-20 05:24] LABS: Hemoglobin 7.6 g/dL (12.0-16.0)
[2022-05-20] MEDS: Sodium Chloride 0.9% 1,000 ML IV SCH ×2 (06:55→10:55)
[2022-05-20] MEDS: Carvedilol 25 MG TAB PO SCH ×2 (09:00→18:23)
[2022-05-20] MEDS: Sevelamer Carbonate 800 MG TAB PO SCH ×4 (10:51→18:23)
[2022-05-20] MEDS: Heparin 5,000 UNITS/ML VIAL SC SCH ×2 (10:52→20:50)
[2022-05-20] MEDS: Gabapentin 100 MG CAP PO SCH ×3 (10:52→20:49)
[2022-05-20] MEDS: Insulin Glargine 30 UNITS/0.3 ML VIAL SC SCH ×2 (10:53→20:51)
[2022-05-20] MEDS ORDERED: Benzonatate 100 MG CAP PO PRN (11:23)
[2022-05-21] MEDS: Acetaminophen 325 MG TAB PO PRN (00:10)
[2022-05-21] MEDS: Ibuprofen 800 MG TAB PO PRN (04:02)
[2022-05-21] MEDS: HumaLOG 300 UNITS/3 ML VIAL SC PRN (05:50)
[2022-05-21 08:22] LABS: #Eosinphils 0.1 thou/uL (0.0-0.7); #Lymphocytes 0.9 thou/uL (1.20-3.40); #Monocytes 0.5 thou/uL (0.11-0.59); #Neutrophils 5.5 thou/uL (1.40-6.50); %Basophils 0.6 % (0.0-1.0); %Eosinophils 2.1 % (0.0-10.0); %Lymphocytes 12.4 % (21.0-51.0); %Monocytes 7.6 % (0.0-10.0); %Neutrophils 77.5 % (42.0-75.0); Hemoglobin 7.7 g/dL (12.0-16.0); Mean Corpuscular HGB CONC 29.9 g/dL (32.0-36.0); Mean Corpuscular Hemoglobin 27.7 pg (27.0-31.0); Mean Corpuscular Volume 92.8 fL (78.0-98.0); Platelet Count 163 thou/uL (130-400); RBC Distribution Width 14.7 % (11.5-14.5); Red Blood Cell (RBC) Count 2.79 mill/uL (4.20-5.40); White Blood Cell (WBC) Count 7.1 thou/uL (4.8-10.8)
[2022-05-21] MEDS ORDERED: Heparin 10,000 UNITS/ 10 ML VIAL ONE (08:56)
[2022-05-21] MEDS: Gabapentin 100 MG CAP PO SCH ×4 (09:53→20:38)
[2022-05-21] MEDS: Heparin 5,000 UNITS/ML VIAL SC SCH ×2 (09:53→20:39)
[2022-05-21] MEDS: Sevelamer Carbonate 800 MG TAB PO SCH ×3 (09:53→17:32)
[2022-05-21] MEDS: Carvedilol 25 MG TAB PO SCH ×2 (09:53→17:32)
[2022-05-21] MEDS: Insulin Glargine 30 UNITS/0.3 ML VIAL SC SCH ×2 (09:54→20:39)
[2022-05-21 10:29] LABS: Hypochromia SLIGHT = 6-15 cells (100X) (0-5/hpf); MDiff Complete? YES; Platelet Morphology Comment Appears Adequate; Polychromasia SLIGHT = 2-3 cells (100X) (0-2/hpf)
[2022-05-22] MEDS: Ibuprofen 800 MG TAB PO PRN (00:32)
[2022-05-22] MEDS: Gabapentin 100 MG CAP PO SCH ×3 (09:10→21:24)
[2022-05-22] MEDS: Heparin 5,000 UNITS/ML VIAL SC SCH ×2 (09:11→21:24)
[2022-05-22] MEDS: Insulin Glargine 30 UNITS/0.3 ML VIAL SC SCH ×2 (09:11→21:24)
[2022-05-22] MEDS: Sevelamer Carbonate 800 MG TAB PO SCH ×3 (09:11→18:16)
[2022-05-22] MEDS: Carvedilol 25 MG TAB PO SCH ×2 (09:11→18:16)
[2022-05-22 09:29] LABS: #Eosinphils 0.2 thou/uL (0.0-0.7); #Monocytes 0.6 thou/uL (0.11-0.59); %Basophils 0.4 % (0.0-1.0); %Eosinophils 2.9 % (0.0-10.0); %Lymphocytes 17.2 % (21.0-51.0); %Monocytes 10.3 % (0.0-10.0); %Neutrophils 69.1 % (42.0-75.0); Hemoglobin 7.3 g/dL (12.0-16.0); Mean Corpuscular HGB CONC 29.4 g/dL (32.0-36.0); Mean Corpuscular Volume 91.9 fL (78.0-98.0); Mean Platelet Volume 7.8 fL (7.4-10.4); Platelet Count 173 thou/uL (130-400); Red Blood Cell (RBC) Count 2.69 mill/uL (4.20-5.40); White Blood Cell (WBC) Count 5.8 thou/uL (4.8-10.8)
[2022-05-22 09:45] LABS: Anion Gap 14 mmol/L (10-20); BUN (Urea Nitrogen) 41 mg/dL (9.8-20.1); Calc. Creatinine Clearance 27 mL/min (70-130); Calcium 8.2 mg/dL (7.8-10.44); Carbon Dioxide 28 mmol/L (23-31); Chloride 99 mmol/L (98-107); Estimated GFR 12; Glucose 89 mg/dL (80-115); Magnesium 2.1 mg/dL (1.6-2.6); Potassium 4.3 mmol/L (3.5-5.1); Sodium 137 mmol/L (136-145)
[2022-05-22 10:36] LABS: Hypochromia SLIGHT = 6-15 cells (100X) (0-5/hpf); MDiff Complete? YES; Platelet Morphology Comment Appears Adequate; Polychromasia SLIGHT = 2-3 cells (100X) (0-2/hpf)
[2022-05-23] MEDS: Ibuprofen 800 MG TAB PO PRN (05:02)
[2022-05-23] MEDS ORDERED: Heparin 10,000 UNITS/ 10 ML VIAL ONE (08:56)
[2022-05-23] MEDS: Sevelamer Carbonate 800 MG TAB PO SCH ×3 (08:57→17:03)
[2022-05-23] MEDS: Gabapentin 100 MG CAP PO SCH ×3 (08:57→20:40)
[2022-05-23] MEDS: Carvedilol 25 MG TAB PO SCH ×2 (08:57→17:03)
[2022-05-23] MEDS: Insulin Glargine 30 UNITS/0.3 ML VIAL SC SCH ×2 (08:58→21:38)
[2022-05-23] MEDS: Heparin 5,000 UNITS/ML VIAL SC SCH ×2 (08:58→20:42)
[2022-05-23] MEDS: Acetaminophen 325 MG TAB PO PRN ×2 (09:00→20:41)
[2022-05-23 14:51] VITALS: BMI 50.3
[2022-05-24] MEDS: Ibuprofen 800 MG TAB PO PRN (00:01)
[2022-05-24] MEDS: Acetaminophen 325 MG TAB PO PRN ×2 (04:00→20:32)
[2022-05-24] MEDS: Insulin Glargine 30 UNITS/0.3 ML VIAL SC SCH (08:33)
[2022-05-24] MEDS: Gabapentin 100 MG CAP PO SCH ×3 (08:34→20:33)
[2022-05-24] MEDS: Sevelamer Carbonate 800 MG TAB PO SCH ×3 (08:34→17:17)
[2022-05-24] MEDS: Carvedilol 25 MG TAB PO SCH ×2 (08:34→17:17)
[2022-05-24] MEDS: Heparin 5,000 UNITS/ML VIAL SC SCH ×2 (08:34→20:34)
[2022-05-24] MEDS ORDERED: HYDROcodone/Acetaminophen 5/325 mg Tablet PO PRN (16:05)
[2022-05-25] MEDS ORDERED: Heparin 10,000 UNITS/ 10 ML VIAL ONE (08:40)
[2022-05-25] MEDS: Gabapentin 100 MG CAP PO SCH ×2 (09:38→15:06)
[2022-05-25] MEDS: Carvedilol 25 MG TAB PO SCH ×2 (09:38→19:30)
[2022-05-25] MEDS: Sevelamer Carbonate 800 MG TAB PO SCH ×3 (09:38→19:30)
[2022-05-25] MEDS: Heparin 5,000 UNITS/ML VIAL SC SCH (09:39)
[2022-05-25] MEDS ORDERED: Epoetin (ESRD) 10,000 UNITS/ML VIAL IVP SCH (18:00)
[2022-05-25 19:23] VITALS: BP 156/66; TEMP 97.6
[2022-05-25] MEDS: Acetaminophen 325 MG TAB PO PRN (20:58)
== END 2022-05-25 21:12 | DRG 853 ==
LOC: ERS 18:22 → 2NO 20:03 → OBSVTOIN 22:27 → CCU 05-02 17:57 → SURG A 05-03 07:50 → CCU 05-03 11:12 → SJJU 05-04 17:22
PROVIDERS: ADMIT Family Medicine; ATTEND Family Medicine
PROC: 3E03329 Introduction of Other Anti-infective into Peripheral Vein, Percutaneous Approach (ICD-10-PCS; 2022-04-28)
PROC: 3E04329 Introduction of Other Anti-infective into Central Vein, Percutaneous Approach (ICD-10-PCS; 2022-04-29)
PROC: 06HY33Z Insertion of Infusion Device into Lower Vein, Percutaneous Approach (ICD-10-PCS; 2022-04-29)
PROC: 5A1D70Z Performance of Urinary Filtration, Intermittent, Less than 6 Hours Per Day (ICD-10-PCS; 2022-04-30)
PROC: 3E033XZ Introduction of Vasopressor into Peripheral Vein, Percutaneous Approach (ICD-10-PCS; 2022-05-02)
PROC: 0JBR0ZZ Excision of Left Foot Subcutaneous Tissue and Fascia, Open Approach (ICD-10-PCS; principal; 2022-05-03)
PROC: 031C0ZF Bypass Left Radial Artery to Lower Arm Vein, Open Approach (ICD-10-PCS; 2022-05-03)
PROC: 0JH60XZ Insertion of Tunneled Vascular Access Device into Chest Subcutaneous Tissue and Fascia, Open Approach (ICD-10-PCS; 2022-05-03)
PROC: 02HV33Z Insertion of Infusion Device into Superior Vena Cava, Percutaneous Approach (ICD-10-PCS; 2022-05-03)
PROC: B5181ZA Fluoroscopy of Superior Vena Cava using Low Osmolar Contrast, Guidance (ICD-10-PCS; 2022-05-03)
PROC: 02H633Z Insertion of Infusion Device into Right Atrium, Percutaneous Approach (ICD-10-PCS; 2022-05-03)
PROC: B548ZZA Ultrasonography of Superior Vena Cava, Guidance (ICD-10-PCS; 2022-05-03)
PROC: 30233N1 Transfusion of Nonautologous Red Blood Cells into Peripheral Vein, Percutaneous Approach (ICD-10-PCS; 2022-05-04)
DX: A41.51 Sepsis due to Escherichia coli [E. coli] (principal); R65.21 Severe sepsis with septic shock; N17.9 Acute kidney failure, unspecified; E87.2 Acidosis; I12.0 Hypertensive chronic kidney disease with stage 5 chronic kidney disease or end stage renal disease; Z68.43 Body mass index [BMI] 50.0-59.9, adult; Z20.822 Contact with and (suspected) exposure to COVID-19; Z66 Do not resuscitate; A41.52 Sepsis due to Pseudomonas; A41.81 Sepsis due to Enterococcus; E88.81 Metabolic syndrome and other insulin resistance; E66.01 Morbid (severe) obesity due to excess calories; E11.22 Type 2 diabetes mellitus with diabetic chronic kidney disease; E87.5 Hyperkalemia; D63.1 Anemia in chronic kidney disease; E11.621 Type 2 diabetes mellitus with foot ulcer; D69.6 Thrombocytopenia, unspecified; L97.529 Non-pressure chronic ulcer of other part of left foot with unspecified severity; H54.40 Blindness, one eye, unspecified eye; H40.9 Unspecified glaucoma; E88.09 Other disorders of plasma-protein metabolism, not elsewhere classified; Z28.21 Immunization not carried out because of patient refusal; Z85.528 Personal history of other malignant neoplasm of kidney; Z90.5 Acquired absence of kidney; Z88.6 Allergy status to analgesic agent; Z88.5 Allergy status to narcotic agent; Z79.899 Other long term (current) drug therapy; Z79.4 Long term (current) use of insulin; Z90.49 Acquired absence of other specified parts of digestive tract; Z89.421 Acquired absence of other right toe(s); Z82.49 Family history of ischemic heart disease and other diseases of the circulatory system; S81.802A Unspecified open wound, left lower leg, initial encounter; E78.5 Hyperlipidemia, unspecified; Z79.82 Long term (current) use of aspirin
CPT/HCPCS: 36415; 36416; 36430; 71045; 76770; 80048; 80053; 80202; 83036; 83605; 83735; 83970; 84100; 85014; 85018; 85025; 85652; 86140; 86580; 86704; 86850; 86900; 86901; 87040; 87070; 87077; 87186; 87205; 87340; 88305; 90935; 93005; 93970; 94660; 96372; 96374; 96375; 97139; C1751; C1752; C1776; C9113; G0257; J0610; J0692; J1642; J1644; J1815; J2370; J2405; J2550; J2704; J2710; J2720; J3010; J3370; J3490; J7050; J7070; J7999; P9016; P9047; Q4081; Q9967; S0020; U0003; U0005

== ENCOUNTER 2022-06-07 15:38 | Inpatient (IN) | payer MEDICARE ==
[~2022-06-07 15:38] MED LIST changes: +Heparin 10,000 UNITS/ 10 ML VIAL ONE; -ISOVUE-370 76%-LOCM 1 ML ONE
[2022-06-07] MEDS ORDERED: Naloxone HCl 0.4 mg/ml Vial ONE ×2 (15:42→15:46)
[2022-06-07 15:58] LABS: Hemoglobin 7.9 g/dL (12.0-16.0); Mean Corpuscular HGB CONC 29.1 g/dL (32.0-36.0); Mean Corpuscular Hemoglobin 26.3 pg (27.0-31.0); Mean Corpuscular Volume 90.1 fL (78.0-98.0); Mean Platelet Volume 8.1 fL (7.4-10.4); Platelet Count 234 thou/uL (130-400); RBC Distribution Width 17.5 % (11.5-14.5); Red Blood Cell (RBC) Count 3.02 mill/uL (4.20-5.40); White Blood Cell (WBC) Count 17.6 thou/uL (4.8-10.8)
[2022-06-07 15:59] LABS: Actual Bicarbonate (HCO3a) 25.9 mEq/L (22-28); Analyzer IN Cardio ER; Calcium, Ionized (arterial) 1.11 mmol/L (1.12-1.30); Carboxyhemoglobin (COHb) 0.5 gm% (0.0-3.0); O2 Tension (PaO2), arterial 72.1 mmHg (> 80.0); Potassium - ABG Lab 3.52 mmol/L (3.70-5.30); pH, Arterial 7.46 (7.35-7.45)
[2022-06-07 16:02] LABS: Puncture Site LRA
[2022-06-07 16:19] LABS: ALT (SGPT) 24 U/L (8-55); AST (SGOT) 10 U/L (5-34); Albumin 2.1 g/dL (3.4-4.8); Alkaline Phosphatase 146 U/L (40-110); Anion Gap 18 mmol/L (10-20); BUN (Urea Nitrogen) 42 mg/dL (9.8-20.1); Bilirubin, Total 1.8 mg/dL (0.2-1.2); Calc. Creatinine Clearance 0 mL/min (70-130); Calcium 8.2 mg/dL (7.8-10.44); Carbon Dioxide 24 mmol/L (23-31); Chloride 95 mmol/L (98-107); Estimated GFR 11; Globulin 3.8 g/dL (2.4-3.5); Glucose 93 mg/dL (80-115); Potassium 3.8 mmol/L (3.5-5.1); Protein, Total 5.9 g/dL (5.8-8.1); Sodium 133 mmol/L (136-145)
[2022-06-07 16:21] LABS: Anisocytosis SLIGHT = 6-15 cells (100X) (0-5/hpf); Band 18 % (5-11); Eosinophils 1 % (0-10); Hypochromia SLIGHT = 6-15 cells (100X) (0-5/hpf); Lymphocytes 3 % (21-51); MDiff Complete? YES; Monocytes 1 % (0-10); Neutrophil 77 % (42-75); Ovalocytes SLIGHT = 2-5 cells (100X) (0-1/hpf); Platelet Morphology Comment Appears Adequate; Polychromasia SLIGHT = 2-3 cells (100X) (0-2/hpf)
[2022-06-07] MEDS ORDERED: Vancomycin 1 GM/200 ML BAG ONE (17:23)
[2022-06-07] MEDS ORDERED: Piperacillin/Tazobactam 4.5 GM VIAL ONE (17:56)
[2022-06-07 18:22] LABS: SARS-CoV-2 NAA Rapid Test Not Detected (NotDetected)
[2022-06-07] MEDS ORDERED: Piperacillin/Tazobactam 3.375 GM VIAL ONE (18:55)
[2022-06-07 19:52] LABS: HBSAB Concentration Less than 8.00 mIU/mL; HBSAg Index 0.38 S/CO (0-0.99); Hep B Core Total Ab Non-Reactive (NonReactive); Hep B Core Total Index 0.11 S/CO (0-0.79); Hep B Surf AB Non-Reactive (NonReactive); Hep B Surf Ag Non-Reactive S/CO (NonReactive); Hep C IgG Ab Non-Reactive (NonReactive); Hep C Index 0.17 S/CO (0-0.79)
[2022-06-07] MEDS ORDERED: Acetaminophen 650 MG Suppository PR PRN (22:03)
[2022-06-07] MEDS ORDERED: Ondansetron ODT 4 MG TAB PO PRN (22:03)
[2022-06-07] MEDS ORDERED: Ondansetron PF 4 MG/2 ML Vial IVP PRN (22:03)
[2022-06-07] MEDS ORDERED: Vancomycin Dialysis Sliding Scale (Wt > 99) FS SCH (23:45)
[2022-06-07] MEDS ORDERED: Vancomycin 1 GM in Premix Bag 1 BAG IVPB SCH (23:59)
[2022-06-08] MEDS ORDERED: HYDROcodone/Acetaminophen 5/325 mg Tablet PO SCH (01:15)
[2022-06-08] MEDS: Acetaminophen 325 MG TAB PO PRN ×3 (04:04→17:42)
[2022-06-08] MEDS ORDERED: VANCOMYCIN 1.25 GM/250 ML BAG 1.25 GM in Premix Bag 1 BAG IVPB SCH (05:00)
[2022-06-08 05:04] LABS: #Eosinphils 0.1 thou/uL (0.0-0.7); #Lymphocytes 1.1 thou/uL (1.20-3.40); #Monocytes 1.2 thou/uL (0.11-0.59); #Neutrophils 13.4 thou/uL (1.40-6.50); %Basophils 0.1 % (0.0-1.0); %Eosinophils 0.5 % (0.0-10.0); %Lymphocytes 7.2 % (21.0-51.0); %Monocytes 7.4 % (0.0-10.0); %Neutrophils 84.8 % (42.0-75.0); Hemoglobin 7.3 g/dL (12.0-16.0); Mean Corpuscular HGB CONC 30.9 g/dL (32.0-36.0); Mean Corpuscular Hemoglobin 28.1 pg (27.0-31.0); Mean Corpuscular Volume 90.9 fL (78.0-98.0); Mean Platelet Volume 7.7 fL (7.4-10.4); Platelet Count 200 thou/uL (130-400); RBC Distribution Width 17.5 % (11.5-14.5); Red Blood Cell (RBC) Count 2.61 mill/uL (4.20-5.40); White Blood Cell (WBC) Count 15.7 thou/uL (4.8-10.8)
[2022-06-08 05:10] LABS: Anion Gap 14 mmol/L (10-20); BUN (Urea Nitrogen) 23 mg/dL (9.8-20.1); Calc. Creatinine Clearance 36 mL/min (70-130); Calcium 8.2 mg/dL (7.8-10.44); Carbon Dioxide 29 mmol/L (23-31); Chloride 97 mmol/L (98-107); Estimated GFR 20; Glucose 105 mg/dL (80-115); Potassium 3.4 mmol/L (3.5-5.1); Sodium 137 mmol/L (136-145)
[2022-06-08] MEDS: Heparin 5,000 UNITS/ML VIAL SC SCH ×3 (09:15→21:29)
[2022-06-08] MEDS: Piperacillin/Tazobactam 3.375 GM in Sodium Chloride 0.9% 100 ML IVPB SCH ×2 (12:00→13:33)
[2022-06-08 12:31] VITALS: BMI 44.5
[2022-06-08] MEDS ORDERED: HYDROcodone/Acetaminophen 5/325 mg Tablet PO PRN (12:33)
[2022-06-08] MEDS: Ferrous Sulfate 325 MG TAB PO SCH (17:42)
[2022-06-09] MEDS: Piperacillin/Tazobactam 3.375 GM in Sodium Chloride 0.9% 100 ML IVPB SCH ×2 (00:06→13:18)
[2022-06-09 05:10] LABS: Anion Gap 16 mmol/L (10-20); BUN (Urea Nitrogen) 31 mg/dL (9.8-20.1); Calc. Creatinine Clearance 26 mL/min (70-130); Calcium 8.2 mg/dL (7.8-10.44); Carbon Dioxide 28 mmol/L (23-31); Chloride 96 mmol/L (98-107); Estimated GFR 13; Glucose 100 mg/dL (80-115); Potassium 3.5 mmol/L (3.5-5.1); Sodium 136 mmol/L (136-145)
[2022-06-09 05:21] LABS: Anisocytosis SLIGHT = 6-15 cells (100X) (0-5/hpf); Band 5 % (5-11); Eosinophils 1 % (0-10); Hemoglobin 7.4 g/dL (12.0-16.0); Hypochromia MODERATE=16-30 cells (100X) (0-5/hpf); Lymphocytes 8 % (21-51); MDiff Complete? YES; Mean Corpuscular HGB CONC 29.7 g/dL (32.0-36.0); Mean Platelet Volume 7.3 fL (7.4-10.4); Monocytes 6 % (0-10); Myelocyte 1 % (0-0); Neutrophil 79 % (42-75); Ovalocytes SLIGHT = 2-5 cells (100X) (0-1/hpf); Platelet Count 260 thou/uL (130-400); Platelet Morphology Comment Appears Adequate; Polychromasia SLIGHT = 2-3 cells (100X) (0-2/hpf); RBC Distribution Width 17.7 % (11.5-14.5); Red Blood Cell (RBC) Count 2.75 mill/uL (4.20-5.40); White Blood Cell (WBC) Count 16.9 thou/uL (4.8-10.8)
[2022-06-09] MEDS: Heparin 5,000 UNITS/ML VIAL SC SCH ×3 (07:50→21:17)
[2022-06-09] MEDS: Acetaminophen 325 MG TAB PO PRN ×2 (07:50→21:15)
[2022-06-09] MEDS: Ferrous Sulfate 325 MG TAB PO SCH ×2 (07:51→16:59)
[2022-06-09] MEDS ORDERED: HYDROcodone/Acetaminophen 5/325 mg Tablet PO SCH (21:30)
[2022-06-09] MEDS: Melatonin 3 MG TAB PO PRN (22:02)
[2022-06-10] MEDS: Piperacillin/Tazobactam 3.375 GM in Sodium Chloride 0.9% 100 ML IVPB SCH ×3 (00:10→23:13)
[2022-06-10 04:53] LABS: Anion Gap 18 mmol/L (10-20); BUN (Urea Nitrogen) 39 mg/dL (9.8-20.1); Calc. Creatinine Clearance 22 mL/min (70-130); Calcium 7.6 mg/dL (7.8-10.44); Carbon Dioxide 24 mmol/L (23-31); Chloride 96 mmol/L (98-107); Estimated GFR 11; Glucose 132 mg/dL (80-115); Potassium 3.2 mmol/L (3.5-5.1); Sodium 135 mmol/L (136-145)
[2022-06-10 05:05] LABS: Band 7 % (5-11); Hemoglobin 7.2 g/dL (12.0-16.0); Hypochromia SLIGHT = 6-15 cells (100X) (0-5/hpf); Lymphocytes 18 % (21-51); MDiff Complete? YES; Mean Corpuscular HGB CONC 30.7 g/dL (32.0-36.0); Mean Corpuscular Hemoglobin 27.6 pg (27.0-31.0); Mean Corpuscular Volume 89.9 fL (78.0-98.0); Mean Platelet Volume 7.4 fL (7.4-10.4); Monocytes 6 % (0-10); Neutrophil 69 % (42-75); Platelet Count 263 thou/uL (130-400); Platelet Morphology Comment Appears Adequate; RBC Distribution Width 17.8 % (11.5-14.5); Red Blood Cell (RBC) Count 2.61 mill/uL (4.20-5.40); White Blood Cell (WBC) Count 15.6 thou/uL (4.8-10.8)
[2022-06-10 06:31] LABS: Vancomycin, Random 19.5 ug/mL (See Comment)
[2022-06-10] MEDS: Acetaminophen 325 MG TAB PO PRN (09:09)
[2022-06-10] MEDS: Ferrous Sulfate 325 MG TAB PO SCH ×2 (09:10→16:50)
[2022-06-10] MEDS: Epoetin (ESRD) 10,000 UNITS/ML VIAL IVP SCH (09:11)
[2022-06-10] MEDS: Heparin 5,000 UNITS/ML VIAL SC SCH ×3 (09:16→20:28)
[2022-06-10] MEDS ORDERED: Ketorolac Tromethamine 30 MG/ML VIAL IVP PRN (10:59)
[2022-06-10] MEDS ORDERED: Ketorolac Tromethamine 30 MG/ML VIAL IVP SCH (11:00)
[2022-06-10] MEDS: HYDROcodone/Acetaminophen 5/325 mg Tablet PO PRN ×2 (16:08→20:27)
[2022-06-10] MEDS ORDERED: Vancomycin HCl 750 MG in Sodium Chloride 0.9% 250 ML 250 ML IVPB SCH (17:00)
[2022-06-10] MEDS ORDERED: Epoetin (ESRD) 20,000 UNITS/ML IVP SCH (17:08)
[2022-06-10] MEDS: Melatonin 3 MG TAB PO PRN (23:13)
[2022-06-11 04:32] LABS: Anion Gap 18 mmol/L (10-20); BUN (Urea Nitrogen) 47 mg/dL (9.8-20.1); Calc. Creatinine Clearance 19 mL/min (70-130); Calcium 7.9 mg/dL (7.8-10.44); Carbon Dioxide 24 mmol/L (23-31); Chloride 96 mmol/L (98-107); Estimated GFR 9; Glucose 107 mg/dL (80-115); Potassium 3.3 mmol/L (3.5-5.1); Sodium 135 mmol/L (136-145)
[2022-06-11 04:54] LABS: Anisocytosis SLIGHT = 6-15 cells (100X) (0-5/hpf); Band 4 % (5-11); Elliptocytes SLIGHT = 2-5 cells (100X) (0-1/hpf); Eosinophils 2 % (0-10); Hemoglobin 7.4 g/dL (12.0-16.0); Hypochromia SLIGHT = 6-15 cells (100X) (0-5/hpf); Lymphocytes 9 % (21-51); MDiff Complete? YES; Mean Corpuscular HGB CONC 30.6 g/dL (32.0-36.0); Mean Corpuscular Hemoglobin 27.2 pg (27.0-31.0); Mean Corpuscular Volume 88.9 fL (78.0-98.0); Mean Platelet Volume 7.2 fL (7.4-10.4); Metamyelocyte 1 % (0-0); Monocytes 1 % (0-10); Neutrophil 83 % (42-75); Platelet Count 275 thou/uL (130-400); Platelet Morphology Comment Appears Adequate; Polychromasia SLIGHT = 2-3 cells (100X) (0-2/hpf); RBC Distribution Width 17.6 % (11.5-14.5); Red Blood Cell (RBC) Count 2.73 mill/uL (4.20-5.40); White Blood Cell (WBC) Count 15.8 thou/uL (4.8-10.8)
[2022-06-11] MEDS ORDERED: Heparin 10,000 UNITS/ 10 ML VIAL ONE ×3 (08:38→15:06)
[2022-06-11] MEDS ORDERED: CEFAZOLIN 2 GM in Sodium Chloride 0.9% 100 ML IVPB SCH (09:15)
[2022-06-11] MEDS: Heparin 5,000 UNITS/ML VIAL SC SCH ×3 (11:42→21:43)
[2022-06-11] MEDS: Ferrous Sulfate 325 MG TAB PO SCH ×2 (11:42→17:22)
[2022-06-11] MEDS: Piperacillin/Tazobactam 3.375 GM in Sodium Chloride 0.9% 100 ML IVPB SCH ×2 (12:00→23:52)
[2022-06-11] MEDS ORDERED: Piperacillin/Tazobactam 3.375 GM VIAL ONE (12:10)
[2022-06-11] MEDS ORDERED: Sodium Chloride 0.9% 100 ML ONE (12:10)
[2022-06-11] MEDS ORDERED: Bupivacaine/Epinephrine 0.25% 30 ML VIAL ONE ×2 (13:49→15:06)
[2022-06-11] MEDS ORDERED: Fentanyl 100 MCG/2 ML VIAL SLOW IVP PRN (14:35)
[2022-06-11] MEDS ORDERED: Fentanyl 100 MCG/2 ML VIAL ONE (14:38)
[2022-06-11] MEDS ORDERED: fentaNYL Citrate/PF 100 MCG/2 ML SYRINGE ONE (15:08)
[2022-06-11] MEDS ORDERED: Propofol 1,000 MG/100 ML VIAL IV ONE (15:08)
[2022-06-11] MEDS ORDERED: Ketamine 50 MG/ML (10ML VIAL) ONE (15:08)
[2022-06-11] MEDS: HYDROcodone/Acetaminophen 5/325 mg Tablet PO PRN (22:22)
[2022-06-12] MEDS: Melatonin 3 MG TAB PO PRN ×2 (01:20→21:03)
[2022-06-12] MEDS ORDERED: Fentanyl 100 MCG/2 ML VIAL SLOW IVP PRN (02:56)
[2022-06-12 04:51] LABS: Hemoglobin 7.4 g/dL (12.0-16.0); Platelet Count 249 thou/uL (130-400)
[2022-06-12 05:14] LABS: Anion Gap 16 mmol/L (10-20); BUN (Urea Nitrogen) 28 mg/dL (9.8-20.1); Calc. Creatinine Clearance 30 mL/min (70-130); Calcium 8.1 mg/dL (7.8-10.44); Carbon Dioxide 25 mmol/L (23-31); Chloride 97 mmol/L (98-107); Estimated GFR 15; Glucose 99 mg/dL (80-115); Sodium 135 mmol/L (136-145)
[2022-06-12 07:19] LABS: Vancomycin, Random 19.7 ug/mL (See Comment)
[2022-06-12] MEDS ORDERED: CEFAZOLIN 2 GM in Sodium Chloride 0.9% 100 ML IVPB SCH (08:00)
[2022-06-12] MEDS: Heparin 5,000 UNITS/ML VIAL SC SCH ×3 (09:50→21:05)
[2022-06-12] MEDS: Ferrous Sulfate 325 MG TAB PO SCH ×2 (09:51→16:39)
[2022-06-12] MEDS: Epoetin (ESRD) 10,000 UNITS/ML VIAL IVP SCH (10:18)
[2022-06-12] MEDS ORDERED: Potassium Chloride 20 MEQ TAB PO SCH (11:45)
[2022-06-12] MEDS: HYDROcodone/Acetaminophen 5/325 mg Tablet PO PRN ×2 (12:20→21:04)
[2022-06-12] MEDS: Piperacillin/Tazobactam 3.375 GM in Sodium Chloride 0.9% 100 ML IVPB SCH (12:21)
[2022-06-12] MEDS ORDERED: Vancomycin HCl 750 MG in Sodium Chloride 0.9% 250 ML 250 ML IVPB SCH (17:00)
[2022-06-13] MEDS: Piperacillin/Tazobactam 3.375 GM in Sodium Chloride 0.9% 100 ML IVPB SCH ×4 (00:54→22:16)
[2022-06-13] MEDS: Acetaminophen 325 MG TAB PO PRN ×2 (04:14→17:50)
[2022-06-13 04:40] LABS: Hemoglobin 7.4 g/dL (12.0-16.0); Platelet Count 273 thou/uL (130-400)
[2022-06-13 05:01] LABS: Anion Gap 17 mmol/L (10-20); BUN (Urea Nitrogen) 35 mg/dL (9.8-20.1); Calc. Creatinine Clearance 23 mL/min (70-130); Calcium 8.2 mg/dL (7.8-10.44); Carbon Dioxide 23 mmol/L (23-31); Chloride 98 mmol/L (98-107); Estimated GFR 11; Glucose 95 mg/dL (80-115); Potassium 3.7 mmol/L (3.5-5.1); Sodium 134 mmol/L (136-145)
[2022-06-13] MEDS: Heparin 5,000 UNITS/ML VIAL SC SCH ×3 (09:20→22:17)
[2022-06-13] MEDS: Ferrous Sulfate 325 MG TAB PO SCH ×2 (09:20→16:07)
[2022-06-13] MEDS ORDERED: fentaNYL Citrate/PF 100 MCG/2 ML SYRINGE ONE (11:27)
[2022-06-13] MEDS ORDERED: Protamine Sulfate 50 MG/5 ML VIAL ONE (12:13)
[2022-06-13] MEDS ORDERED: Ioversol 68 % 50 ML VIAL ONE (12:13)
[2022-06-13] MEDS ORDERED: Bupivacaine HCl 0.5%/Epinephrine 1:200,000/PF 30 ml Vial ONE (12:13)
[2022-06-13] MEDS ORDERED: Heparin 5,000 UNITS/ML VIAL ONE (12:13)
[2022-06-13] MEDS ORDERED: Piperacillin/Tazobactam 3.375 GM VIAL ONE (12:33)
[2022-06-13] MEDS ORDERED: Sodium Chloride 0.9% 100 ML ONE ×2 (12:34→12:36)
[2022-06-13] MEDS ORDERED: CEFAZOLIN 2 GM VIAL ONE (12:36)
[2022-06-13] MEDS ORDERED: Norepinephrine 4 MG/4 ML VIAL ONE (12:44)
[2022-06-13] MEDS ORDERED: PROPOFOL 200 MG/20 ML VIAL ONE (13:06)
[2022-06-13] MEDS ORDERED: Ondansetron PF 4 MG/2 ML Vial ONE (13:06)
[2022-06-13] MEDS ORDERED: Heparin 10,000 UNITS/ 10 ML VIAL ONE (13:38)
[2022-06-13] MEDS ORDERED: Promethazine HCl 25 MG/ML VIAL IM PRN (14:33)
[2022-06-13] MEDS ORDERED: Promethazine HCl 25 MG/ML VIAL IVPB PRN (14:33)
[2022-06-13] MEDS ORDERED: Ondansetron HCl/PF 4 MG/2 ML Vial IVP PRN (14:33)
[2022-06-13] MEDS: HYDROcodone/Acetaminophen 5/325 mg Tablet PO PRN (16:05)
[2022-06-14 05:21] LABS: Hemoglobin 8.2 g/dL (12.0-16.0); Platelet Count 261 thou/uL (130-400)
[2022-06-14 07:30] LABS: Vancomycin, Random 19.3 ug/mL (See Comment)
[2022-06-14] MEDS: Ferrous Sulfate 325 MG TAB PO SCH ×2 (09:28→17:31)
[2022-06-14] MEDS: Heparin 5,000 UNITS/ML VIAL SC SCH ×3 (09:29→19:56)
[2022-06-14] MEDS: Epoetin (ESRD) 10,000 UNITS/ML VIAL IVP SCH (10:42)
[2022-06-14] MEDS: HYDROcodone/Acetaminophen 5/325 mg Tablet PO PRN ×3 (11:18→21:20)
[2022-06-14] MEDS: Piperacillin/Tazobactam 3.375 GM in Sodium Chloride 0.9% 100 ML IVPB SCH (12:28)
[2022-06-14] MEDS: Megestrol Acetate 40 MG TAB PO SCH ×2 (14:41→19:56)
[2022-06-14] MEDS ORDERED: Vancomycin HCl 750 MG in Sodium Chloride 0.9% 250 ML 250 ML IVPB SCH (17:00)
[2022-06-14] MEDS: Melatonin 3 MG TAB PO PRN (21:40)
[2022-06-15] MEDS: Piperacillin/Tazobactam 3.375 GM in Sodium Chloride 0.9% 100 ML IVPB SCH ×3 (00:02→23:53)
[2022-06-15] MEDS ORDERED: Heparin 10,000 UNITS/ 10 ML VIAL ONE (08:20)
[2022-06-15] MEDS ORDERED: Ergocalciferol 1.25 MG(50,000 UNITS) CAP PO SCH (09:00)
[2022-06-15] MEDS: Heparin 5,000 UNITS/ML VIAL SC SCH ×3 (13:05→20:22)
[2022-06-15] MEDS: Ferrous Sulfate 325 MG TAB PO SCH ×2 (13:05→17:07)
[2022-06-15] MEDS: Megestrol Acetate 40 MG TAB PO SCH ×3 (13:06→20:17)
[2022-06-15] MEDS: HYDROcodone/Acetaminophen 5/325 mg Tablet PO PRN ×2 (13:08→20:17)
[2022-06-16] MEDS ORDERED: hydrALAZINE 20 MG/ML VIAL SLOW IVP SCH (04:15)
[2022-06-16 04:43] LABS: #Eosinphils 0.1 thou/uL (0.0-0.7); #Lymphocytes 1.7 thou/uL (1.20-3.40); #Monocytes 0.8 thou/uL (0.11-0.59); #Neutrophils 9.1 thou/uL (1.40-6.50); %Basophils 0.3 % (0.0-1.0); %Eosinophils 0.8 % (0.0-10.0); %Lymphocytes 14.8 % (21.0-51.0); %Monocytes 6.8 % (0.0-10.0); %Neutrophils 77.3 % (42.0-75.0); Mean Corpuscular HGB CONC 30.3 g/dL (32.0-36.0); Mean Corpuscular Hemoglobin 26.8 pg (27.0-31.0); Mean Corpuscular Volume 88.4 fL (78.0-98.0); Mean Platelet Volume 7.7 fL (7.4-10.4); Platelet Count 233 thou/uL (130-400); RBC Distribution Width 18.3 % (11.5-14.5); Red Blood Cell (RBC) Count 2.63 mill/uL (4.20-5.40); White Blood Cell (WBC) Count 11.8 thou/uL (4.8-10.8)
[2022-06-16] MEDS: HYDROcodone/Acetaminophen 5/325 mg Tablet PO PRN ×5 (05:03→18:02)
[2022-06-16] MEDS: Heparin 5,000 UNITS/ML VIAL SC SCH ×2 (09:42→17:03)
[2022-06-16] MEDS: Ferrous Sulfate 325 MG TAB PO SCH ×2 (09:42→18:03)
[2022-06-16] MEDS: Megestrol Acetate 40 MG TAB PO SCH ×2 (11:23→17:03)
[2022-06-16] MEDS: Piperacillin/Tazobactam 3.375 GM in Sodium Chloride 0.9% 100 ML IVPB SCH (17:01)
[2022-06-16 19:37] VITALS: BP 176/73; TEMP 97
== END 2022-06-16 18:49 | disposition home health service (06) | DRG 853 ==
LOC: ERS 15:38 → EEVIPCON 15:38 → 2NO 18:27 → OBSVTOIN 06-08 12:19
PROVIDERS: ADMIT Family Medicine; ATTEND Hospitalist
PROC: 3E03329 Introduction of Other Anti-infective into Peripheral Vein, Percutaneous Approach (ICD-10-PCS; principal; 2022-06-08)
PROC: 0JBN0ZZ Excision of Right Lower Leg Subcutaneous Tissue and Fascia, Open Approach (ICD-10-PCS; 2022-06-11)
PROC: 0JBP0ZZ Excision of Left Lower Leg Subcutaneous Tissue and Fascia, Open Approach (ICD-10-PCS; 2022-06-11)
PROC: 5A1D70Z Performance of Urinary Filtration, Intermittent, Less than 6 Hours Per Day (ICD-10-PCS; 2022-06-11)
PROC: 0JH63XZ Insertion of Tunneled Vascular Access Device into Chest Subcutaneous Tissue and Fascia, Percutaneous Approach (ICD-10-PCS; 2022-06-11)
PROC: 02HV33Z Insertion of Infusion Device into Superior Vena Cava, Percutaneous Approach (ICD-10-PCS; 2022-06-11)
PROC: 031B09F Bypass Right Radial Artery to Lower Arm Vein with Autologous Venous Tissue, Open Approach (ICD-10-PCS; 2022-06-13)
PROC: 30233N1 Transfusion of Nonautologous Red Blood Cells into Peripheral Vein, Percutaneous Approach (ICD-10-PCS; 2022-06-16)
DX: A41.9 Sepsis, unspecified organism (principal); G93.41 Metabolic encephalopathy; N18.6 End stage renal disease; L03.116 Cellulitis of left lower limb; I12.0 Hypertensive chronic kidney disease with stage 5 chronic kidney disease or end stage renal disease; L03.115 Cellulitis of right lower limb; Z68.41 Body mass index [BMI] 40.0-44.9, adult; E87.1 Hypo-osmolality and hyponatremia; L02.416 Cutaneous abscess of left lower limb; E11.52 Type 2 diabetes mellitus with diabetic peripheral angiopathy with gangrene; T82.868A Thrombosis due to vascular prosthetic devices, implants and grafts, initial encounter; L97.929 Non-pressure chronic ulcer of unspecified part of left lower leg with unspecified severity; L97.919 Non-pressure chronic ulcer of unspecified part of right lower leg with unspecified severity; R65.20 Severe sepsis without septic shock; Z20.822 Contact with and (suspected) exposure to COVID-19; Z66 Do not resuscitate; E11.22 Type 2 diabetes mellitus with diabetic chronic kidney disease; E78.5 Hyperlipidemia, unspecified; H54.62 Unqualified visual loss, left eye, normal vision right eye; I87.8 Other specified disorders of veins; H40.9 Unspecified glaucoma; D63.1 Anemia in chronic kidney disease; E88.09 Other disorders of plasma-protein metabolism, not elsewhere classified; Y83.8 Other surgical procedures as the cause of abnormal reaction of the patient, or of later complication, without mention of misadventure at the time of the procedure; E66.01 Morbid (severe) obesity due to excess calories; E83.59 Other disorders of calcium metabolism; E87.6 Hypokalemia; E11.621 Type 2 diabetes mellitus with foot ulcer; L89.152 Pressure ulcer of sacral region, stage 2; Z99.2 Dependence on renal dialysis; Z85.528 Personal history of other malignant neoplasm of kidney; Z88.5 Allergy status to narcotic agent; Z88.8 Allergy status to other drugs, medicaments and biological substances; Z79.899 Other long term (current) drug therapy; Z90.49 Acquired absence of other specified parts of digestive tract; Z89.421 Acquired absence of other right toe(s); Z90.5 Acquired absence of kidney
CPT/HCPCS: 36415; 36416; 36430; 36600; 70450; 71045; 80048; 80053; 80202; 82805; 83605; 84484; 85014; 85018; 85025; 85049; 86704; 86850; 86900; 86901; 87040; 87340; 87811; 90935; 93005; 94760; 96365; 96366; 96372; 96375; 96376; 97139; C1752; C1776; G0257; G0378; J0360; J0690; J1644; J2310; J2405; J2543; J2704; J2720; J3010; J3370; J3490; J7050; P9016; Q4081; Q9967; S0179; U0002

== ENCOUNTER 2022-07-01 18:45 | Emergency (ER) | payer MEDICARE, OTHER ==
[2022-07-01 19:33] LABS: #Eosinphils 0.1 thou/uL (0.0-0.7); #Lymphocytes 1.2 thou/uL (1.20-3.40); #Monocytes 0.5 thou/uL (0.11-0.59); %Basophils 0.4 % (0.0-1.0); %Eosinophils 1.4 % (0.0-10.0); %Lymphocytes 15.4 % (21.0-51.0); %Monocytes 5.9 % (0.0-10.0); Mean Corpuscular HGB CONC 30.9 g/dL (32.0-36.0); Mean Corpuscular Hemoglobin 27.7 pg (27.0-31.0); Mean Corpuscular Volume 89.7 fL (78.0-98.0); Mean Platelet Volume 7.5 fL (7.4-10.4); Platelet Count 206 thou/uL (130-400); RBC Distribution Width 18.6 % (11.5-14.5); White Blood Cell (WBC) Count 7.8 thou/uL (4.8-10.8)
[2022-07-01 19:53] LABS: ALT (SGPT) Less than 7 U/L (8-55); AST (SGOT) 12 U/L (5-34); Albumin 2.5 g/dL (3.4-4.8); Alkaline Phosphatase 145 U/L (40-110); Anion Gap 16 mmol/L (10-20); BUN (Urea Nitrogen) 65 mg/dL (9.8-20.1); Bilirubin, Total 0.8 mg/dL (0.2-1.2); Calc. Creatinine Clearance 0 mL/min (70-130); Calcium 8.4 mg/dL (7.8-10.44); Carbon Dioxide 26 mmol/L (23-31); Chloride 98 mmol/L (98-107); Estimated GFR 15; Globulin 4.5 g/dL (2.4-3.5); Glucose 103 mg/dL (80-115); Potassium 3.9 mmol/L (3.5-5.1); Sodium 136 mmol/L (136-145)
[2022-07-01] MEDS ORDERED: Vancomycin 1 GM/200 ML BAG ONE (20:12)
[2022-07-01] MEDS ORDERED: HYDROcodone/Acetaminophen 5/325 mg Tablet ONE (20:16)
== END 2022-07-01 23:18 | disposition home or self-care (01) ==
LOC: ERS 18:45
DX: S81.801A Unspecified open wound, right lower leg, initial encounter (principal); I12.0 Hypertensive chronic kidney disease with stage 5 chronic kidney disease or end stage renal disease; E11.22 Type 2 diabetes mellitus with diabetic chronic kidney disease; E78.5 Hyperlipidemia, unspecified; N18.6 End stage renal disease; X58.XXXA Exposure to other specified factors, initial encounter
CPT/HCPCS: 36416; 80053; 83605; 85025; 87070; 87077; 87186; 87205; 96374; J3370

== ENCOUNTER 2022-07-22 16:31 | Emergency (ER) | payer MEDICARE ==
[2022-07-22] MEDS ORDERED: Ketorolac Tromethamine 30 MG/ML VIAL ONE (17:09)
[2022-07-22] MEDS ORDERED: HYDROcodone/Acetaminophen 5/325 mg Tablet ONE (17:09)
[2022-07-23] MEDS ORDERED: Ondansetron ODT 4 MG TAB ONE (01:00)
== END 2022-07-23 01:05 | disposition home or self-care (01) ==
LOC: ERS 16:31
DX: M79.651 Pain in right thigh (principal); M79.661 Pain in right lower leg; I12.0 Hypertensive chronic kidney disease with stage 5 chronic kidney disease or end stage renal disease; E11.22 Type 2 diabetes mellitus with diabetic chronic kidney disease; N18.6 End stage renal disease; E78.5 Hyperlipidemia, unspecified; E11.39 Type 2 diabetes mellitus with other diabetic ophthalmic complication; H42 Glaucoma in diseases classified elsewhere; H54.40 Blindness, one eye, unspecified eye; Z79.4 Long term (current) use of insulin; Z79.899 Other long term (current) drug therapy
CPT/HCPCS: 96372; J1885; Q0162

== ENCOUNTER 2023-04-21 09:10 | Inpatient (IN) | payer MEDICARE ==
[2023-04-21] MEDS ORDERED: Cefepime 2 GM VIAL ONE (09:29)
[2023-04-21 09:39] LABS: Hematocrit 21.5 % (36.0-47.0); Hemoglobin 6.4 g/dL (12.0-16.0); Mean Corpuscular HGB CONC 29.8 g/dL (32.0-36.0); Mean Corpuscular Hemoglobin 27.9 pg (27.0-31.0); Mean Corpuscular Volume 93.9 fl (78.0-98.0); Mean Platelet Volume 9.2 fL (7.4-10.4); Platelet Count 107 10x3/uL (130-400); RBC Distribution Width 21.9 % (11.5-14.5); Red Blood Cell (RBC) Count 2.29 mill/uL (4.20-5.40); White Blood Cell (WBC) Count 9.1 10x3/uL (4.8-10.8)
[2023-04-21 09:44] LABS: Delete Auto Diff?? YES; Manual Diff?? YES
[2023-04-21 09:55] LABS: ALT (SGPT) Less than 7 U/L (8-55); AST (SGOT) 13 U/L (5-34); Albumin 1.4 g/dL (3.4-4.8); Alkaline Phosphatase 141 U/L (40-110); Anion Gap 16 mmol/L (10-20); BUN (Urea Nitrogen) 17 mg/dL (9.8-20.1); Bilirubin, Total 0.6 mg/dL (0.2-1.2); Calc. Creatinine Clearance 0 mL/min (70-130); Calcium 7.3 mg/dL (7.8-10.44); Carbon Dioxide 21 mmol/L (23-31); Chloride 99 mmol/L (98-107); Estimated GFR 17; Globulin 2.9 g/dL (2.4-3.5); Glucose 152 mg/dL (80-115); Protein, Total 4.3 g/dL (5.8-8.1); Sodium 133 mmol/L (136-145)
[2023-04-21 10:04] LABS: Potassium 2.5 mmol/L (3.5-5.1)
[2023-04-21] MEDS ORDERED: Vancomycin 1 GM/200 ML (FROZEN) BAG ONE (10:22)
[2023-04-21] MEDS ORDERED: Potassium Chloride 20 MEQ/100 ML PREMIX BAG ONE ×2 (10:32→10:35)
[2023-04-21 10:39] LABS: Clarity Turbid (Clear)
[2023-04-21 10:40] LABS: Glucose, Urine (Dipstick) Negative (Negative); Ketone, Urine 5 mg/dL (Negative); Leukocyte Large (Negative); Nitrite Positive (Negative); Protein, Urine (Dipstick) > or equal to 300 mg/dL (Neg-Trace); pH, Urine 7.5 (5.0-9.0)
[2023-04-21 10:41] LABS: Bilirubin Negative (Negative); Blood, Urine Large (Negative); CAUTI Indications for Culture Alt mental st,lethar; Urobilinogen 0.2 mg/dL (Less than 2); WBC/HPF Greater Than 50 HPF (0-3)
[2023-04-21 10:42] LABS: Bacteria/HPF 4+ HPF (None Seen); Squamous Epithelial 0-3 HPF (0-3); Yeast-Budding None Seen HPF (None Seen)
[2023-04-21 10:43] LABS: Urine Culture Reflex Yes Yes
[2023-04-21 11:30] LABS: Anisocytosis SLIGHT = 6-15 cells (100X) (0-5/hpf); Band 42 % (5-11); Lymphocytes 8 % (21-51); Metamyelocyte 4 % (0-0); Myelocyte 1 % (0-0); Neutrophil 45 % (42-75); Polychromasia SLIGHT = 2-3 cells (100X) (0-2/hpf)
[2023-04-21 11:31] LABS: Platelet Adequacy Comment Significant decrease
[2023-04-21 12:52] LABS: Lactic Acid 5.5 mmol/L (0.5-2.2)
[2023-04-21] MEDS ORDERED: Senokot S 8.6-50 MG TAB PO PRN (13:07)
[2023-04-21] MEDS ORDERED: Acetaminophen 650 MG Suppository PR PRN (13:07)
[2023-04-21] MEDS ORDERED: Calcium Carbonate 500 MG ChewTAB PO PRN (13:07)
[2023-04-21] MEDS ORDERED: NOREPINEPHRINE 8 MG/250 ML-D5W 250 ML IVPB SCH (13:15)
[2023-04-21] MEDS ORDERED: VANCOMYCIN IVPB PRN (13:30)
[2023-04-21] MEDS ORDERED: Piperacillin/Tazobactam 3.375 GM in Sodium Chloride 0.9% 100 ML IVPB SCH (13:45)
[2023-04-21] MEDS ORDERED: Piperacillin/Tazobactam 3.375 GM VIAL ONE ×2 (13:46→13:47)
[2023-04-21] MEDS ORDERED: Vancomycin Diaylsis Sliding Scale (Wt 71-99) FS SCH (14:00)
[2023-04-21 14:05] LABS: Troponin I 0.013 ng/mL (< 0.028)
[2023-04-21] MEDS ORDERED: Vancomycin HCl 500 MG in Sodium Chloride 0.9% 100 ML IVPB SCH (15:00)
[2023-04-21] MEDS ORDERED: Sodium Chloride 0.9% 500 ML IV SCH ×2 (16:15→18:30)
[2023-04-21] MEDS: Piperacillin/Tazobactam 3.375 GM in Sodium Chloride 0.9% 100 ML IVPB SCH (17:29)
[2023-04-21 17:43] LABS: Anion Gap 17 mmol/L (10-20); BUN (Urea Nitrogen) 19 mg/dL (9.8-20.1); Calc. Creatinine Clearance 25 mL/min (70-130); Calcium 7.6 mg/dL (7.8-10.44); Carbon Dioxide 20 mmol/L (23-31); Chloride 98 mmol/L (98-107); Estimated GFR 18; Glucose 85 mg/dL (80-115); Sodium 132 mmol/L (136-145)
[2023-04-21] MEDS: Sevelamer Carbonate 800 MG TAB PO SCH (17:45)
[2023-04-21 17:50] LABS: Troponin I 0.021 ng/mL (< 0.028)
[2023-04-21 18:07] LABS: Potassium 2.6 mmol/L (3.5-5.1)
[2023-04-21] MEDS ORDERED: Sodium Chloride 0.9% 1,000 ML IV SCH (20:00)
[2023-04-21] MEDS: Pantoprazole 40 MG VIAL IVP SCH (20:16)
[2023-04-21 20:38] LABS: Hematocrit 27.4 % (36.0-47.0)
[2023-04-21] MEDS: Acetaminophen 325 MG TAB PO PRN (20:46)
[2023-04-21 20:58] LABS: Lactic Acid 3.6 mmol/L (0.5-2.2)
[2023-04-21] MEDS: Potassium Chloride 20 MEQ in Premix Bag 1 BAG IVPB SCH ×2 (21:03→23:23)
[2023-04-21 23:00] LABS: Magnesium 1.4 mg/dL (1.6-2.6)
[2023-04-22] MEDS ORDERED: Dextrose 5% in Water 1,000 ML IV PRN (02:30)
[2023-04-22] MEDS ORDERED: Ipratropium/Albuterol 3 ML NEB NEB SCH (02:30)
[2023-04-22] MEDS ORDERED: Potassium Chloride 20 MEQ in Premix Bag 1 BAG IVPB SCH (02:30)
[2023-04-22 04:18] LABS: Hematocrit 26.2 % (36.0-47.0); Hemoglobin 8.4 g/dL (12.0-16.0); Mean Corpuscular HGB CONC 32.1 g/dL (32.0-36.0); Mean Corpuscular Hemoglobin 27.7 pg (27.0-31.0); Mean Platelet Volume 9.7 fL (7.4-10.4); Platelet Count 156 10x3/uL (130-400); RBC Distribution Width 20.6 % (11.5-14.5); Red Blood Cell (RBC) Count 3.03 mill/uL (4.20-5.40); White Blood Cell (WBC) Count 17.2 10x3/uL (4.8-10.8)
[2023-04-22 04:34] LABS: Mean Corpuscular Volume 86.5 fl (78.0-98.0)
[2023-04-22 04:35] LABS: Delete Auto Diff?? YES; Manual Diff?? YES
[2023-04-22 04:42] LABS: Lactic Acid 3.3 mmol/L (0.5-2.2)
[2023-04-22] MEDS: Potassium Chloride 20 MEQ in Premix Bag 1 BAG IVPB SCH ×3 (04:53→12:30)
[2023-04-22 05:08] LABS: ALT (SGPT) 8 U/L (8-55); AST (SGOT) 12 U/L (5-34); Albumin 1.6 g/dL (3.4-4.8); Alkaline Phosphatase 152 U/L (40-110); Anion Gap 14 mmol/L (10-20); BUN (Urea Nitrogen) 21 mg/dL (9.8-20.1); Bilirubin, Total 1.8 mg/dL (0.2-1.2); Calc. Creatinine Clearance 25 mL/min (70-130); Calcium 7.4 mg/dL (7.8-10.44); Carbon Dioxide 21 mmol/L (23-31); Chloride 100 mmol/L (98-107); Estimated GFR 18; Globulin 3.1 g/dL (2.4-3.5); Glucose 66 mg/dL (80-115); Magnesium 1.4 mg/dL (1.6-2.6); Potassium 3.1 mmol/L (3.5-5.1); Protein, Total 4.7 g/dL (5.8-8.1); Sodium 132 mmol/L (136-145)
[2023-04-22 05:42] LABS: Band 41 % (5-11); Burr Cells MODERATE= 6-15 cells HPF (0-1); CellaVision Operator ID LAB.GE; Lymphocytes 3 % (21-51); Metamyelocyte 1 % (0-0); Monocytes 1 % (0-10); Neutrophil 54 % (42-75); Platelet Adequacy Comment Platelets Normal; Polychromasia MODERATE = 3-4 cells HPF (0-2); Total Cell Count 101
[2023-04-22] MEDS: Piperacillin/Tazobactam 3.375 GM in Sodium Chloride 0.9% 100 ML IVPB SCH ×2 (06:35→17:12)
[2023-04-22 07:18] LABS: Vancomycin, Random 20.8 ug/mL (See Comment)
[2023-04-22] MEDS ORDERED: Dextrose 5 % And 0.9 % NaCl 1,000 ML IV SCH (07:45)
[2023-04-22] MEDS: Ondansetron PF 4 MG/2 ML Vial IVP PRN (07:50)
[2023-04-22] MEDS: Glucagon 1 MG/ML KIT IM PRN (09:38)
[2023-04-22] MEDS: Pantoprazole 40 MG VIAL IVP SCH ×2 (09:39→21:46)
[2023-04-22] MEDS: Sevelamer Carbonate 800 MG TAB PO SCH ×3 (09:39→17:11)
[2023-04-22] MEDS ORDERED: Magnesium Sulfate In Water 4 GM in Premix Bag 1 BAG IVPB SCH (10:45)
[2023-04-22] MEDS ORDERED: Sodium Chloride 0.9% 1,000 ML IV SCH (11:00)
[2023-04-22] MEDS: Dextrose 5 % And 0.9 % NaCl 1,000 ML IV SCH ×2 (11:18→20:15)
[2023-04-22] MEDS ORDERED: Metoclopramide HCl 10 MG/2 ML VIAL IVP SCH (12:00)
[2023-04-22] MEDS ORDERED: Epoetin (ESRD) 10,000 UNITS/ML VIAL IVP SCH (12:00)
[2023-04-22] MEDS ORDERED: EPOETIN ALFA-EPBX (ESRD) 10,000 UNITS/ML VIAL IVP SCH (12:15)
[2023-04-22 12:20] LABS: HBSAB Concentration Less than 8.00 mIU/mL; HBSAg Index 0.34 S/CO (0-0.99); Hep B Surf AB Non-Reactive (NonReactive); Hep B Surf Ag Non-Reactive S/CO (NonReactive)
[2023-04-22] MEDS ORDERED: Activase 2 MG VIAL CATH SCH ×2 (12:30→15:15)
[2023-04-22] MEDS ORDERED: Vancomycin 250 MG in Sodium Chloride 0.9% 100 ML IVPB SCH (17:00)
[2023-04-22] MEDS: Metoclopramide HCl 10 MG/2 ML VIAL IVP SCH ×2 (21:45→22:17)
[2023-04-23] MEDS: Metoclopramide HCl 10 MG/2 ML VIAL IVP SCH ×3 (06:21→21:45)
[2023-04-23] MEDS: Piperacillin/Tazobactam 3.375 GM in Sodium Chloride 0.9% 100 ML IVPB SCH (06:23)
[2023-04-23] MEDS: Dextrose 5 % And 0.9 % NaCl 1,000 ML IV SCH (06:26)
[2023-04-23 07:46] LABS: #Monocytes 0.2 thou/uL (0.11-0.59); #Neutrophils 13.2 thou/uL (1.40-6.50); %Basophils 0.1 % (0.0-1.0); %Eosinophils 0.2 % (0.0-10.0); %Lymphocytes 7.9 % (21.0-51.0); %Monocytes 1.4 % (0.0-10.0); %Neutrophils 89.7 % (42.0-75.0); Hematocrit 25.4 % (36.0-47.0); Mean Corpuscular HGB CONC 31.5 g/dL (32.0-36.0); Mean Corpuscular Volume 88.8 fl (78.0-98.0); Mean Platelet Volume 9.3 fL (7.4-10.4); Platelet Count 124 10x3/uL (130-400); RBC Distribution Width 21.1 % (11.5-14.5); Red Blood Cell (RBC) Count 2.86 mill/uL (4.20-5.40); White Blood Cell (WBC) Count 14.7 10x3/uL (4.8-10.8)
[2023-04-23 08:06] LABS: ALT (SGPT) Less than 7 U/L (8-55); AST (SGOT) 14 U/L (5-34); Albumin 1.5 g/dL (3.4-4.8); Alkaline Phosphatase 150 U/L (40-110); Anion Gap 13 mmol/L (10-20); BUN (Urea Nitrogen) 19 mg/dL (9.8-20.1); Bilirubin, Total 1.4 mg/dL (0.2-1.2); Calc. Creatinine Clearance 28 mL/min (70-130); Calcium 7.4 mg/dL (7.8-10.44); Carbon Dioxide 19 mmol/L (23-31); Chloride 105 mmol/L (98-107); Estimated GFR 20; Globulin 2.9 g/dL (2.4-3.5); Glucose 108 mg/dL (80-115); Potassium 3.2 mmol/L (3.5-5.1); Protein, Total 4.4 g/dL (5.8-8.1); Sodium 134 mmol/L (136-145)
[2023-04-23] MEDS ORDERED: Lidocaine 1% w/Epinephrine 1:100K 20 ML VIAL ONE (09:24)
[2023-04-23] MEDS: Sevelamer Carbonate 800 MG TAB PO SCH ×3 (09:30→17:17)
[2023-04-23] MEDS: Pantoprazole 40 MG VIAL IVP SCH ×2 (09:30→20:36)
[2023-04-23] MEDS ORDERED: Potassium Chloride 20 MEQ TAB PO SCH (10:00)
[2023-04-23] MEDS ORDERED: Meropenem 1 GM in Sodium Chloride 0.9% 100 ML IVPB SCH (10:15)
[2023-04-23] MEDS ORDERED: Electrolyte Replacement Protocol 1 EACH FS ONE (10:40)
[2023-04-23] MEDS ORDERED: Sodium Chloride 0.9% 1,000 ML IV SCH (11:15)
[2023-04-23] MEDS: Potassium Chloride 20 MEQ in Premix Bag 1 BAG IVPB SCH ×2 (11:22→12:21)
[2023-04-23] MEDS ORDERED: Sodium Chloride 0.9% 1,000 ML IV PRN (11:30)
[2023-04-23] MEDS: Albumin 25% 25 GM/100 ML BOT IVPB SCH ×2 (12:21→17:21)
[2023-04-23] MEDS: Vancomycin HCl 125 MG/5 ML (BATCHED) UDCUP PO SCH ×3 (12:25→20:41)
[2023-04-23] MEDS: Ondansetron PF 4 MG/2 ML Vial IVP PRN ×2 (13:16→22:22)
[2023-04-23] MEDS ORDERED: Heparin 10,000 UNITS/ 10 ML VIAL ONE (14:38)
[2023-04-23] MEDS: Meropenem 500 MG in Sodium Chloride 0.9% 100 ML IVPB SCH (20:33)
[2023-04-23] MEDS: Heparin 5,000 UNITS/ML VIAL SC SCH (20:36)
[2023-04-23] MEDS: Acetaminophen 325 MG TAB PO PRN (20:41)
[2023-04-24] MEDS: Albumin 25% 25 GM/100 ML BOT IVPB SCH ×4 (00:22→17:16)
[2023-04-24 04:52] LABS: ALT (SGPT) Less than 7 U/L (8-55); AST (SGOT) 11 U/L (5-34); Albumin 2.5 g/dL (3.4-4.8); Alkaline Phosphatase 114 U/L (40-110); Anion Gap 13 mmol/L (10-20); BUN (Urea Nitrogen) 17 mg/dL (9.8-20.1); Bilirubin, Total 2.4 mg/dL (0.2-1.2); Calc. Creatinine Clearance 35 mL/min (70-130); Calcium 7.8 mg/dL (7.8-10.44); Carbon Dioxide 20 mmol/L (23-31); Chloride 104 mmol/L (98-107); Estimated GFR 26; Globulin 2.1 g/dL (2.4-3.5); Glucose 75 mg/dL (80-115); Potassium 3.1 mmol/L (3.5-5.1); Protein, Total 4.6 g/dL (5.8-8.1); Sodium 134 mmol/L (136-145)
[2023-04-24] MEDS: Metoclopramide HCl 10 MG/2 ML VIAL IVP SCH ×3 (06:09→20:46)
[2023-04-24 06:13] LABS: Mean Corpuscular HGB CONC 30.8 g/dL (32.0-36.0); Mean Corpuscular Volume 90.9 fl (78.0-98.0); Mean Platelet Volume 10.5 fL (7.4-10.4); RBC Distribution Width 21.7 % (11.5-14.5); Red Blood Cell (RBC) Count 2.86 mill/uL (4.20-5.40); White Blood Cell (WBC) Count 13.6 10x3/uL (4.8-10.8)
[2023-04-24 06:15] LABS: Platelet Count 80 10x3/uL (130-400)
[2023-04-24 06:16] LABS: Delete Auto Diff?? YES; Manual Diff?? YES
[2023-04-24] MEDS: Vancomycin HCl 125 MG/5 ML (BATCHED) UDCUP PO SCH ×4 (08:01→20:46)
[2023-04-24] MEDS: Pantoprazole 40 MG VIAL IVP SCH (08:01)
[2023-04-24] MEDS: Sevelamer Carbonate 800 MG TAB PO SCH ×3 (08:02→17:28)
[2023-04-24] MEDS ORDERED: Potassium Chloride 20 MEQ TAB PO SCH (08:15)
[2023-04-24] MEDS: Glucagon 1 MG/ML KIT IM PRN (08:20)
[2023-04-24] MEDS: Ondansetron PF 4 MG/2 ML Vial IVP PRN ×2 (08:20→17:26)
[2023-04-24] MEDS: Heparin 5,000 UNITS/ML VIAL SC SCH (08:33)
[2023-04-24] MEDS ORDERED: Dextrose 5 % And 0.9 % NaCl 1,000 ML IV SCH (08:45)
[2023-04-24] MEDS: Saccharomyces boulardii 250 MG CAP PO SCH (10:12)
[2023-04-24] MEDS: Dextrose 5 % And 0.9 % NaCl 1,000 ML IV SCH (10:12)
[2023-04-24 10:16] LABS: Band 12 % (5-11); Lymphocytes 8 % (21-51); Monocytes 3 % (0-10); Neutrophil 77 % (42-75)
[2023-04-24 10:17] LABS: Hypochromia SLIGHT = 6-15 cells (100X) (0-5/hpf); Platelet Adequacy Comment Platelets Decreased; Polychromasia SLIGHT = 2-3 cells (100X) (0-2/hpf)
[2023-04-24] MEDS ORDERED: Heparin 10,000 UNITS/ 10 ML VIAL ONE (14:41)
[2023-04-24] MEDS: Meropenem 500 MG in Sodium Chloride 0.9% 100 ML IVPB SCH (20:43)
[2023-04-24] MEDS ORDERED: Famotidine/PF 20 mg/2ml Vial SLOW IVP SCH (21:00)
[2023-04-25] MEDS: Albumin 25% 25 GM/100 ML BOT IVPB SCH ×2 (01:42→05:17)
[2023-04-25] MEDS: Ondansetron PF 4 MG/2 ML Vial IVP PRN ×3 (03:08→22:58)
[2023-04-25] MEDS: Dextrose 50% Abboject 50 ML SYRINGE IVP PRN (05:12)
[2023-04-25] MEDS: Metoclopramide HCl 10 MG/2 ML VIAL IVP SCH ×2 (05:16→13:15)
[2023-04-25] MEDS: Sevelamer Carbonate 800 MG TAB PO SCH ×3 (08:52→16:04)
[2023-04-25] MEDS: Vancomycin HCl 125 MG/5 ML (BATCHED) UDCUP PO SCH ×4 (08:52→21:02)
[2023-04-25] MEDS: Saccharomyces boulardii 250 MG CAP PO SCH (08:52)
[2023-04-25] MEDS: Dextrose 5 % And 0.9 % NaCl 1,000 ML IV SCH (08:53)
[2023-04-25 11:25] LABS: Hematocrit 21.5 % (36.0-47.0); Hemoglobin 6.8 g/dL (12.0-16.0); Mean Corpuscular HGB CONC 31.6 g/dL (32.0-36.0); Mean Corpuscular Hemoglobin 27.9 pg (27.0-31.0); Mean Corpuscular Volume 88.1 fl (78.0-98.0); Red Blood Cell (RBC) Count 2.44 mill/uL (4.20-5.40); White Blood Cell (WBC) Count 7.2 10x3/uL (4.8-10.8)
[2023-04-25 11:27] LABS: Platelet Count 4 10x3/uL (130-400)
[2023-04-25 11:44] LABS: Anion Gap 17 mmol/L (10-20); BUN (Urea Nitrogen) 13 mg/dL (9.8-20.1); Calc. Creatinine Clearance 39 mL/min (70-130); Calcium 8.7 mg/dL (7.8-10.44); Carbon Dioxide 19 mmol/L (23-31); Chloride 105 mmol/L (98-107); Estimated GFR 29; Glucose 65 mg/dL (80-115); Potassium 3.6 mmol/L (3.5-5.1); Sodium 137 mmol/L (136-145)
[2023-04-25 11:48] LABS: Delete Auto Diff?? YES; Manual Diff?? YES
[2023-04-25 12:28] LABS: Platelet Count 63 10x3/uL (130-400)
[2023-04-25 12:30] LABS: #Monocytes 0.2 thou/uL (0.11-0.59); #Neutrophils 6.4 thou/uL (1.40-6.50); %Eosinophils 0.5 % (0.0-10.0); %Lymphocytes 16.5 % (21.0-51.0); %Monocytes 2.8 % (0.0-10.0); %Neutrophils 79.6 % (42.0-75.0); Hemoglobin 6.4 g/dL (12.0-16.0); Mean Corpuscular Hemoglobin 28.3 pg (27.0-31.0); Mean Corpuscular Volume 88.5 fl (78.0-98.0); Mean Platelet Volume 10.2 fL (7.4-10.4); RBC Distribution Width 21.2 % (11.5-14.5); Red Blood Cell (RBC) Count 2.26 mill/uL (4.20-5.40)
[2023-04-25 12:31] LABS: Platelet Count 58 10x3/uL (130-400)
[2023-04-25 12:37] LABS: Anisocytosis SLIGHT = 6-15 cells (100X) (0-5/hpf); Band 3 % (5-11); Lymphocytes 13 % (21-51); Monocytes 1 % (0-10); Neutrophil 83 % (42-75); Polychromasia SLIGHT = 2-3 cells (100X) (0-2/hpf)
[2023-04-25 12:38] LABS: Ovalocytes SLIGHT = 2-5 cells (100X) (0-1/hpf); Platelet Adequacy Comment Appears Decreased
[2023-04-25 12:43] LABS: D-Dimer Test 2.98 *mcg/mL (0.27-0.43); INR-International Normal Ratio 1.9; Prothrombin Time 22.7 sec (12.0-14.7)
[2023-04-25 12:44] LABS: PTT 57.5 sec (22.9-36.1)
[2023-04-25 12:47] LABS: Fibrinogen 108 mg/dL (253-463)
[2023-04-25] MEDS: Meropenem 1 GM in Sodium Chloride 0.9% 100 ML IVPB SCH (15:56)
[2023-04-25] MEDS ORDERED: Scopolamine 1.5 mg/72 hour Patch TOP SCH (17:00)
[2023-04-26] MEDS: Meropenem 1 GM in Sodium Chloride 0.9% 100 ML IVPB SCH ×2 (03:46→15:40)
[2023-04-26 07:15] LABS: #Monocytes 0.2 thou/uL (0.11-0.59); #Neutrophils 6.4 thou/uL (1.40-6.50); %Basophils 0.2 % (0.0-1.0); %Eosinophils 0.5 % (0.0-10.0); %Lymphocytes 15.9 % (21.0-51.0); %Neutrophils 79.8 % (42.0-75.0); Hemoglobin 7.9 g/dL (12.0-16.0); Mean Corpuscular HGB CONC 30.4 g/dL (32.0-36.0); Mean Corpuscular Hemoglobin 27.5 pg (27.0-31.0); Mean Corpuscular Volume 90.6 fl (78.0-98.0); Mean Platelet Volume 10.2 fL (7.4-10.4); Red Blood Cell (RBC) Count 2.87 mill/uL (4.20-5.40)
[2023-04-26 07:41] LABS: Platelet Count 31 10x3/uL (130-400)
[2023-04-26 07:47] LABS: Anion Gap 15 mmol/L (10-20); BUN (Urea Nitrogen) 17 mg/dL (9.8-20.1); Calc. Creatinine Clearance 33 mL/min (70-130); Calcium 8.5 mg/dL (7.8-10.44); Carbon Dioxide 17 mmol/L (23-31); Chloride 107 mmol/L (98-107); Estimated GFR 23; Glucose 80 mg/dL (80-115); Potassium 3.3 mmol/L (3.5-5.1); Sodium 136 mmol/L (136-145)
[2023-04-26 08:07] LABS: Phosphorus Less than 1.0 mg/dL (2.3-4.7)
[2023-04-26] MEDS: Sevelamer Carbonate 800 MG TAB PO SCH ×2 (08:16→11:29)
[2023-04-26] MEDS ORDERED: Potassium Phosphate 30 MMOL in Sodium Chloride 0.9% 250 ML 250 ML IVPB SCH (08:45)
[2023-04-26] MEDS: Vancomycin HCl 125 MG/5 ML (BATCHED) UDCUP PO SCH ×4 (09:15→20:42)
[2023-04-26] MEDS: Acetaminophen 325 MG TAB PO PRN (09:15)
[2023-04-26] MEDS: Saccharomyces boulardii 250 MG CAP PO SCH (09:16)
[2023-04-26] MEDS: Ondansetron PF 4 MG/2 ML Vial IVP PRN (11:33)
[2023-04-26] MEDS: Epoetin (ESRD) 10,000 UNITS/ML VIAL IVP SCH (11:39)
[2023-04-26] MEDS: Dextrose 5 % And 0.9 % NaCl 1,000 ML IV SCH (13:57)
[2023-04-26] MEDS ORDERED: Heparin 10,000 UNITS/ 10 ML VIAL ONE (14:39)
[2023-04-26 18:37] LABS: Anion Gap 13 mmol/L (10-20); BUN (Urea Nitrogen) 11 mg/dL (9.8-20.1); Calc. Creatinine Clearance 45 mL/min (70-130); Calcium 8.3 mg/dL (7.8-10.44); Carbon Dioxide 24 mmol/L (23-31); Chloride 104 mmol/L (98-107); Estimated GFR 34; Glucose 66 mg/dL (80-115); Phosphorus 1.3 mg/dL (2.3-4.7); Sodium 138 mmol/L (136-145)
[2023-04-26] MEDS: PHOS-NAK 1 PKT PACK PO SCH (20:31)
[2023-04-27] MEDS: PHOS-NAK 1 PKT PACK PO SCH ×2 (00:01→03:52)
[2023-04-27] MEDS: Meropenem 1 GM in Sodium Chloride 0.9% 100 ML IVPB SCH ×2 (03:52→16:34)
[2023-04-27] MEDS: Dextrose 50% Abboject 50 ML SYRINGE IVP PRN ×2 (05:38→11:53)
[2023-04-27 08:30] LABS: #Eosinphils 0.1 thou/uL (0.0-0.7); #Monocytes 0.3 thou/uL (0.11-0.59); #Neutrophils 5.8 thou/uL (1.40-6.50); %Basophils 0.3 % (0.0-1.0); %Eosinophils 0.9 % (0.0-10.0); %Lymphocytes 16.5 % (21.0-51.0); %Monocytes 4.4 % (0.0-10.0); %Neutrophils 77.1 % (42.0-75.0); Hemoglobin 8.2 g/dL (12.0-16.0); Mean Corpuscular HGB CONC 30.4 g/dL (32.0-36.0); Mean Corpuscular Hemoglobin 28.2 pg (27.0-31.0); Mean Corpuscular Volume 92.8 fl (78.0-98.0); Mean Platelet Volume 11.2 fL (7.4-10.4); RBC Distribution Width 20.9 % (11.5-14.5); Red Blood Cell (RBC) Count 2.91 mill/uL (4.20-5.40); White Blood Cell (WBC) Count 7.5 10x3/uL (4.8-10.8)
[2023-04-27 08:37] LABS: Anion Gap 13 mmol/L (10-20); BUN (Urea Nitrogen) 15 mg/dL (9.8-20.1); Calc. Creatinine Clearance 38 mL/min (70-130); Carbon Dioxide 20 mmol/L (23-31); Chloride 110 mmol/L (98-107); Estimated GFR 29; Glucose 78 mg/dL (80-115); Potassium 3.1 mmol/L (3.5-5.1); Sodium 140 mmol/L (136-145)
[2023-04-27 08:41] LABS: Platelet Count 69 10x3/uL (130-400)
[2023-04-27] MEDS: Vancomycin HCl 125 MG/5 ML (BATCHED) UDCUP PO SCH ×4 (08:53→21:16)
[2023-04-27] MEDS: Saccharomyces boulardii 250 MG CAP PO SCH (08:53)
[2023-04-27] MEDS ORDERED: Potassium Phosphate 30 MMOL in Sodium Chloride 0.9% 250 ML 250 ML IVPB SCH (09:30)
[2023-04-27 09:35] LABS: Phosphorus 1.7 mg/dL (2.3-4.7)
[2023-04-27] MEDS ORDERED: D5W-AA 4.25% with LYTES 1,000 ML IV SCH (12:45)
[2023-04-28] MEDS: Ondansetron PF 4 MG/2 ML Vial IVP PRN (02:26)
[2023-04-28] MEDS: Meropenem 1 GM in Sodium Chloride 0.9% 100 ML IVPB SCH ×2 (02:32→14:44)
[2023-04-28 08:02] LABS: #Monocytes 0.3 thou/uL (0.11-0.59); #Neutrophils 5.9 thou/uL (1.40-6.50); %Basophils 0.3 % (0.0-1.0); %Eosinophils 0.5 % (0.0-10.0); %Lymphocytes 18.2 % (21.0-51.0); %Monocytes 4.1 % (0.0-10.0); %Neutrophils 76.4 % (42.0-75.0); Hematocrit 27.5 % (36.0-47.0); Hemoglobin 8.6 g/dL (12.0-16.0); Mean Corpuscular HGB CONC 31.3 g/dL (32.0-36.0); Mean Corpuscular Hemoglobin 28.1 pg (27.0-31.0); Mean Corpuscular Volume 89.9 fl (78.0-98.0); Mean Platelet Volume 9.8 fL (7.4-10.4); RBC Distribution Width 20.2 % (11.5-14.5); Red Blood Cell (RBC) Count 3.06 mill/uL (4.20-5.40); White Blood Cell (WBC) Count 7.8 10x3/uL (4.8-10.8)
[2023-04-28 08:10] LABS: Platelet Count 72 10x3/uL (130-400)
[2023-04-28 08:27] LABS: Anion Gap 14 mmol/L (10-20); BUN (Urea Nitrogen) 20 mg/dL (9.8-20.1); Calc. Creatinine Clearance 30 mL/min (70-130); Calcium 8.2 mg/dL (7.8-10.44); Carbon Dioxide 21 mmol/L (23-31); Chloride 108 mmol/L (98-107); Estimated GFR 22; Glucose 81 mg/dL (80-115); Phosphorus 4.1 mg/dL (2.3-4.7); Potassium 3.5 mmol/L (3.5-5.1); Sodium 139 mmol/L (136-145)
[2023-04-28] MEDS: Saccharomyces boulardii 250 MG CAP PO SCH (09:01)
[2023-04-28] MEDS: Vancomycin HCl 125 MG/5 ML (BATCHED) UDCUP PO SCH ×4 (09:31→20:56)
[2023-04-29] MEDS: Meropenem 1 GM in Sodium Chloride 0.9% 100 ML IVPB SCH ×2 (03:24→15:36)
[2023-04-29 07:30] LABS: #Monocytes 0.3 thou/uL (0.11-0.59); #Neutrophils 5.8 thou/uL (1.40-6.50); %Basophils 0.3 % (0.0-1.0); %Eosinophils 0.5 % (0.0-10.0); %Monocytes 4.1 % (0.0-10.0); %Neutrophils 76.6 % (42.0-75.0); Hematocrit 24.7 % (36.0-47.0); Hemoglobin 7.6 g/dL (12.0-16.0); Mean Corpuscular HGB CONC 30.8 g/dL (32.0-36.0); Mean Corpuscular Hemoglobin 27.6 pg (27.0-31.0); Mean Corpuscular Volume 89.8 fl (78.0-98.0); Mean Platelet Volume 11.1 fL (7.4-10.4); RBC Distribution Width 19.9 % (11.5-14.5); Red Blood Cell (RBC) Count 2.75 mill/uL (4.20-5.40); White Blood Cell (WBC) Count 7.6 10x3/uL (4.8-10.8)
[2023-04-29 07:37] LABS: Platelet Count 77 10x3/uL (130-400)
[2023-04-29 07:50] LABS: Phosphorus 4.5 mg/dL (2.3-4.7)
[2023-04-29 07:52] LABS: Anion Gap 14 mmol/L (10-20); BUN (Urea Nitrogen) 29 mg/dL (9.8-20.1); Calc. Creatinine Clearance 27 mL/min (70-130); Calcium 8.3 mg/dL (7.8-10.44); Carbon Dioxide 17 mmol/L (23-31); Chloride 107 mmol/L (98-107); Estimated GFR 19; Glucose 77 mg/dL (80-115); Potassium 3.2 mmol/L (3.5-5.1); Sodium 135 mmol/L (136-145)
[2023-04-29] MEDS: Saccharomyces boulardii 250 MG CAP PO SCH (09:24)
[2023-04-29] MEDS: Vancomycin HCl 125 MG/5 ML (BATCHED) UDCUP PO SCH ×2 (09:25→14:17)
[2023-04-29] MEDS ORDERED: Heparin 10,000 UNITS/ 10 ML VIAL ONE (10:58)
[2023-04-29] MEDS: Acetaminophen 325 MG TAB PO PRN (12:57)
[2023-04-29] MEDS: AA 4.25 %/CALCIUM/LYTES/D5W 2,000 ML IV SCH (12:59)
[2023-04-29] MEDS: Epoetin (ESRD) 10,000 UNITS/ML VIAL IVP SCH (13:01)
[2023-04-29] MEDS: Vancomycin HCl 125 MG Capsule PO SCH ×2 (18:33→20:38)
[2023-04-30] MEDS: Meropenem 1 GM in Sodium Chloride 0.9% 100 ML IVPB SCH ×2 (03:20→14:44)
[2023-04-30 07:24] LABS: #Monocytes 0.5 thou/uL (0.11-0.59); #Neutrophils 6.2 thou/uL (1.40-6.50); %Basophils 0.1 % (0.0-1.0); %Eosinophils 0.5 % (0.0-10.0); %Lymphocytes 18.5 % (21.0-51.0); %Monocytes 5.8 % (0.0-10.0); %Neutrophils 73.9 % (42.0-75.0); Hematocrit 24.6 % (36.0-47.0); Hemoglobin 8.1 g/dL (12.0-16.0); Mean Corpuscular HGB CONC 32.9 g/dL (32.0-36.0); Mean Corpuscular Hemoglobin 28.2 pg (27.0-31.0); Mean Platelet Volume 12.2 fL (7.4-10.4); RBC Distribution Width 19.1 % (11.5-14.5); Red Blood Cell (RBC) Count 2.87 mill/uL (4.20-5.40); White Blood Cell (WBC) Count 8.3 10x3/uL (4.8-10.8)
[2023-04-30 07:52] LABS: Mean Corpuscular Volume 85.7 fl (78.0-98.0); Platelet Count 62 10x3/uL (130-400)
[2023-04-30 08:08] LABS: Anion Gap 13 mmol/L (10-20); BUN (Urea Nitrogen) 20 mg/dL (9.8-20.1); Calc. Creatinine Clearance 41 mL/min (70-130); Calcium 7.9 mg/dL (7.8-10.44); Carbon Dioxide 21 mmol/L (23-31); Chloride 102 mmol/L (98-107); Estimated GFR 31; Glucose 73 mg/dL (80-115); Phosphorus 3.3 mg/dL (2.3-4.7); Potassium 3.5 mmol/L (3.5-5.1); Sodium 132 mmol/L (136-145)
[2023-04-30] MEDS: Vancomycin HCl 125 MG Capsule PO SCH ×4 (08:31→21:29)
[2023-04-30] MEDS: Saccharomyces boulardii 250 MG CAP PO SCH (08:31)
[2023-05-01] MEDS: Meropenem 1 GM in Sodium Chloride 0.9% 100 ML IVPB SCH ×2 (03:21→14:59)
[2023-05-01] MEDS: Glucagon 1 MG/ML KIT IM PRN ×3 (08:26→17:47)
[2023-05-01] MEDS ORDERED: Heparin 10,000 UNITS/ 10 ML VIAL ONE (08:59)
[2023-05-01] MEDS: Vancomycin HCl 125 MG Capsule PO SCH ×4 (13:28→21:06)
[2023-05-01] MEDS: Saccharomyces boulardii 250 MG CAP PO SCH (13:49)
[2023-05-02] MEDS: Meropenem 1 GM in Sodium Chloride 0.9% 100 ML IVPB SCH ×2 (03:27→12:34)
[2023-05-02] MEDS: Dextrose 50% Abboject 50 ML SYRINGE IVP PRN (05:50)
[2023-05-02] MEDS: Saccharomyces boulardii 250 MG CAP PO SCH (07:40)
[2023-05-02] MEDS: AA 4.25 %/CALCIUM/LYTES/D5W 2,000 ML IV SCH (07:40)
[2023-05-02] MEDS: Vancomycin HCl 125 MG Capsule PO SCH ×4 (07:40→21:48)
[2023-05-02] MEDS: Ondansetron PF 4 MG/2 ML Vial IVP PRN (12:34)
[2023-05-03] MEDS: Meropenem 1 GM in Sodium Chloride 0.9% 100 ML IVPB SCH ×2 (03:54→14:08)
[2023-05-03] MEDS: Vancomycin HCl 125 MG Capsule PO SCH ×4 (07:44→21:20)
[2023-05-03] MEDS: Saccharomyces boulardii 250 MG CAP PO SCH (07:44)
[2023-05-03] MEDS: Ondansetron PF 4 MG/2 ML Vial IVP PRN ×2 (07:44→14:33)
[2023-05-03] MEDS ORDERED: Heparin 10,000 UNITS/ 10 ML VIAL ONE (08:58)
[2023-05-03 09:27] LABS: Chloride 101 mmol/L (98-107); Potassium 4.3 mmol/L (3.5-5.1); Sodium 128 mmol/L (136-145)
[2023-05-03 09:28] LABS: Calcium 8.2 mg/dL (7.8-10.44); Glucose 67 mg/dL (80-115)
[2023-05-03 09:30] LABS: Anion Gap 12 mmol/L (10-20); Carbon Dioxide 19 mmol/L (23-31)
[2023-05-03 09:32] LABS: BUN (Urea Nitrogen) 32 mg/dL (9.8-20.1); Calc. Creatinine Clearance 35 mL/min (70-130); Estimated GFR 26
[2023-05-03 09:34] LABS: Magnesium 1.9 mg/dL (1.6-2.6)
[2023-05-03] MEDS: Dextrose 50% Abboject 50 ML SYRINGE IVP PRN (14:08)
[2023-05-04] MEDS: Saccharomyces boulardii 250 MG CAP PO SCH (08:18)
[2023-05-04] MEDS: Vancomycin HCl 125 MG Capsule PO SCH ×4 (08:18→21:22)
[2023-05-04] MEDS: D5W-AA 4.25% with LYTES 1,000 ML IV SCH (08:19)
[2023-05-04 08:45] LABS: Anion Gap 12 mmol/L (10-20); BUN (Urea Nitrogen) 22 mg/dL (9.8-20.1); Calc. Creatinine Clearance 51 mL/min (70-130); Calcium 8.1 mg/dL (7.8-10.44); Carbon Dioxide 26 mmol/L (23-31); Chloride 100 mmol/L (98-107); Estimated GFR 40; Glucose 71 mg/dL (80-115); Potassium 3.5 mmol/L (3.5-5.1); Sodium 134 mmol/L (136-145)
[2023-05-04] MEDS ORDERED: Dronabinol 2.5 MG CAP PO SCH (14:45)
[2023-05-04 16:20] LABS: ALT (SGPT) Less than 7 U/L (8-55); AST (SGOT) 10 U/L (5-34); Albumin 2.1 g/dL (3.4-4.8); Alkaline Phosphatase 359 U/L (40-110); Bilirubin, Direct 0.6 mg/dL (0.1-0.3); Bilirubin, Total 1.3 mg/dL (0.2-1.2); Protein, Total 5.9 g/dL (5.8-8.1)
[2023-05-04] MEDS: Pantoprazole 40 MG VIAL IVP SCH (21:22)
[2023-05-05] MEDS: D5W-AA 4.25% with LYTES 1,000 ML IV SCH ×2 (04:09→21:57)
[2023-05-05] MEDS ORDERED: Losartan 25 MG TAB PO SCH (05:45)
[2023-05-05] MEDS ORDERED: Dronabinol 2.5 MG CAP PO SCH (07:30)
[2023-05-05 08:54] LABS: Anion Gap 11 mmol/L (10-20); BUN (Urea Nitrogen) 34 mg/dL (9.8-20.1); Calc. Creatinine Clearance 37 mL/min (70-130); Calcium 8.2 mg/dL (7.8-10.44); Carbon Dioxide 23 mmol/L (23-31); Chloride 98 mmol/L (98-107); Estimated GFR 27; Glucose 66 mg/dL (80-115); Potassium 4.4 mmol/L (3.5-5.1); Sodium 128 mmol/L (136-145)
[2023-05-05] MEDS: Ondansetron PF 4 MG/2 ML Vial IVP PRN (09:10)
[2023-05-05] MEDS: Saccharomyces boulardii 250 MG CAP PO SCH (10:12)
[2023-05-05] MEDS: Vancomycin HCl 125 MG Capsule PO SCH ×4 (10:12→21:57)
[2023-05-05] MEDS: Pantoprazole 40 MG VIAL IVP SCH ×2 (10:13→21:57)
[2023-05-05] MEDS: Promethazine 25 MG TAB PO PRN (12:46)
[2023-05-05] MEDS: Metoclopramide HCl 10 MG/2 ML VIAL IVP SCH ×2 (16:33→21:57)
[2023-05-05] MEDS: Losartan 25 MG TAB PO SCH (21:57)
[2023-05-06] MEDS: hydrALAZINE 25 MG TAB PO PRN (02:35)
[2023-05-06] MEDS: Metoclopramide HCl 10 MG/2 ML VIAL IVP SCH ×4 (05:32→21:41)
[2023-05-06 06:29] LABS: #Eosinphils 0.1 thou/uL (0.0-0.7); #Monocytes 0.2 thou/uL (0.11-0.59); #Neutrophils 3.8 thou/uL (1.40-6.50); %Basophils 0.6 % (0.0-1.0); %Eosinophils 0.9 % (0.0-10.0); %Monocytes 4.5 % (0.0-10.0); %Neutrophils 70.3 % (42.0-75.0); Hematocrit 19.3 % (36.0-47.0); Mean Corpuscular HGB CONC 31.1 g/dL (32.0-36.0); Mean Corpuscular Hemoglobin 27.4 pg (27.0-31.0); Mean Corpuscular Volume 88.1 fl (78.0-98.0); Mean Platelet Volume 10.9 fL (7.4-10.4); RBC Distribution Width 17.5 % (11.5-14.5); Red Blood Cell (RBC) Count 2.19 mill/uL (4.20-5.40); White Blood Cell (WBC) Count 5.3 10x3/uL (4.8-10.8)
[2023-05-06 06:50] LABS: Platelet Count 67 10x3/uL (130-400)
[2023-05-06 06:58] LABS: Anion Gap 14 mmol/L (10-20); BUN (Urea Nitrogen) 48 mg/dL (9.8-20.1); Calc. Creatinine Clearance 32 mL/min (70-130); Calcium 7.9 mg/dL (7.8-10.44); Carbon Dioxide 22 mmol/L (23-31); Chloride 99 mmol/L (98-107); Estimated GFR 23; Glucose 74 mg/dL (80-115); Phosphorus 5.1 mg/dL (2.3-4.7); Potassium 3.6 mmol/L (3.5-5.1); Sodium 131 mmol/L (136-145)
[2023-05-06] MEDS ORDERED: Heparin 10,000 UNITS/ 10 ML VIAL ONE (08:49)
[2023-05-06] MEDS: Vancomycin HCl 125 MG Capsule PO SCH ×4 (09:16→21:41)
[2023-05-06] MEDS: Losartan 25 MG TAB PO SCH ×2 (09:16→21:41)
[2023-05-06] MEDS: Pantoprazole 40 MG VIAL IVP SCH ×2 (09:16→21:41)
[2023-05-06] MEDS: D5W-AA 4.25% with LYTES 1,000 ML IV SCH (17:53)
[2023-05-06] MEDS: Saccharomyces boulardii 250 MG CAP PO SCH (17:53)
[2023-05-07] MEDS: Metoclopramide HCl 10 MG/2 ML VIAL IVP SCH ×4 (04:54→21:38)
[2023-05-07] MEDS: Losartan 25 MG TAB PO SCH ×2 (09:05→21:38)
[2023-05-07] MEDS: Vancomycin HCl 125 MG Capsule PO SCH ×4 (09:05→21:38)
[2023-05-07] MEDS: Saccharomyces boulardii 250 MG CAP PO SCH (09:05)
[2023-05-07] MEDS: Pantoprazole 40 MG VIAL IVP SCH (09:05)
[2023-05-07 09:43] LABS: #Monocytes 0.3 thou/uL (0.11-0.59); #Neutrophils 4.8 thou/uL (1.40-6.50); %Basophils 0.5 % (0.0-1.0); %Eosinophils 0.5 % (0.0-10.0); %Lymphocytes 20.5 % (21.0-51.0); %Monocytes 4.7 % (0.0-10.0); %Neutrophils 73.2 % (42.0-75.0); Hematocrit 25.2 % (36.0-47.0); Mean Corpuscular HGB CONC 31.7 g/dL (32.0-36.0); Mean Corpuscular Hemoglobin 27.8 pg (27.0-31.0); Mean Corpuscular Volume 87.5 fl (78.0-98.0); Mean Platelet Volume 11.2 fL (7.4-10.4); RBC Distribution Width 16.7 % (11.5-14.5); Red Blood Cell (RBC) Count 2.88 mill/uL (4.20-5.40); White Blood Cell (WBC) Count 6.6 10x3/uL (4.8-10.8)
[2023-05-07 09:53] LABS: Platelet Count 78 10x3/uL (130-400)
[2023-05-07 10:06] LABS: ALT (SGPT) Less than 7 U/L (8-55); AST (SGOT) 6 U/L (5-34); Albumin 2.1 g/dL (3.4-4.8); Alkaline Phosphatase 274 U/L (40-110); Anion Gap 12 mmol/L (10-20); BUN (Urea Nitrogen) 30 mg/dL (9.8-20.1); Bilirubin, Total 1.3 mg/dL (0.2-1.2); Calc. Creatinine Clearance 45 mL/min (70-130); Calcium 7.9 mg/dL (7.8-10.44); Carbon Dioxide 24 mmol/L (23-31); Chloride 100 mmol/L (98-107); Estimated GFR 35; Globulin 3.6 g/dL (2.4-3.5); Glucose 67 mg/dL (80-115); Potassium 3.7 mmol/L (3.5-5.1); Protein, Total 5.7 g/dL (5.8-8.1); Sodium 132 mmol/L (136-145)
[2023-05-07] MEDS: D5W-AA 4.25% with LYTES 1,000 ML IV SCH (15:45)
[2023-05-07] MEDS: Acetaminophen 325 MG TAB PO PRN (21:37)
[2023-05-07] MEDS: Famotidine/PF 20 mg/2ml Vial SLOW IVP SCH (21:38)
[2023-05-08] MEDS: Metoclopramide HCl 10 MG/2 ML VIAL IVP SCH ×4 (04:53→23:23)
[2023-05-08] MEDS ORDERED: Heparin 10,000 UNITS/ 10 ML VIAL ONE (08:17)
[2023-05-08] MEDS: Losartan 25 MG TAB PO SCH ×2 (08:28→21:55)
[2023-05-08] MEDS: Saccharomyces boulardii 250 MG CAP PO SCH (08:28)
[2023-05-08] MEDS: Vancomycin HCl 125 MG Capsule PO SCH ×2 (08:29→21:57)
[2023-05-08] MEDS: Promethazine 25 MG TAB PO PRN (08:35)
[2023-05-08] MEDS ORDERED: Vancomycin HCl 125 MG Capsule PO SCH (09:00)
[2023-05-08 10:39] LABS: Anion Gap 17 mmol/L (10-20); BUN (Urea Nitrogen) 46 mg/dL (9.8-20.1); Calc. Creatinine Clearance 37 mL/min (70-130); Calcium 7.9 mg/dL (7.8-10.44); Carbon Dioxide 17 mmol/L (23-31); Chloride 101 mmol/L (98-107); Estimated GFR 28; Glucose 60 mg/dL (80-115); Phosphorus 4.8 mg/dL (2.3-4.7); Potassium 4.4 mmol/L (3.5-5.1); Sodium 131 mmol/L (136-145)
[2023-05-08] MEDS ORDERED: Epoetin (ESRD) 10,000 UNITS/ML VIAL IVP SCH (12:15)
[2023-05-08] MEDS: D5W-AA 4.25% with LYTES 1,000 ML IV SCH (21:54)
[2023-05-08] MEDS: Famotidine/PF 20 mg/2ml Vial SLOW IVP SCH (23:01)
[2023-05-08 23:24] LABS: Glucose POC Confirmation 53 mg/dL (80-115)
[2023-05-09] MEDS: Dextrose 50% Abboject 50 ML SYRINGE IVP PRN (03:31)
[2023-05-09] MEDS: Metoclopramide HCl 10 MG/2 ML VIAL IVP SCH ×4 (04:41→21:30)
[2023-05-09] MEDS: Saccharomyces boulardii 250 MG CAP PO SCH (08:22)
[2023-05-09] MEDS: Vancomycin HCl 125 MG Capsule PO SCH ×2 (08:22→21:23)
[2023-05-09] MEDS: Losartan 25 MG TAB PO SCH ×2 (08:22→21:23)
[2023-05-09 08:25] LABS: Anion Gap 12 mmol/L (10-20); BUN (Urea Nitrogen) 27 mg/dL (9.8-20.1); Calc. Creatinine Clearance 52 mL/min (70-130); Calcium 7.6 mg/dL (7.8-10.44); Carbon Dioxide 25 mmol/L (23-31); Chloride 99 mmol/L (98-107); Estimated GFR 43; Glucose 68 mg/dL (80-115); Potassium 3.4 mmol/L (3.5-5.1); Sodium 133 mmol/L (136-145)
[2023-05-09] MEDS: Promethazine 25 MG TAB PO PRN (08:25)
[2023-05-09 11:12] VITALS: BMI 31.8
[2023-05-09] MEDS: D5W-AA 4.25% with LYTES 1,000 ML IV SCH (17:04)
[2023-05-09] MEDS: Famotidine/PF 20 mg/2ml Vial SLOW IVP SCH (21:23)
[2023-05-10] MEDS: Dextrose 50% Abboject 50 ML SYRINGE IVP PRN (01:23)
[2023-05-10] MEDS: Metoclopramide HCl 10 MG/2 ML VIAL IVP SCH ×4 (04:04→22:32)
[2023-05-10 06:26] LABS: Anion Gap 14 mmol/L (10-20); BUN (Urea Nitrogen) 38 mg/dL (9.8-20.1); Calc. Creatinine Clearance 39 mL/min (70-130); Calcium 7.5 mg/dL (7.8-10.44); Carbon Dioxide 21 mmol/L (23-31); Chloride 99 mmol/L (98-107); Estimated GFR 30; Glucose 62 mg/dL (80-115); Potassium 4.2 mmol/L (3.5-5.1); Sodium 130 mmol/L (136-145)
[2023-05-10 06:29] LABS: Phosphorus 4.1 mg/dL (2.3-4.7)
[2023-05-10] MEDS: Saccharomyces boulardii 250 MG CAP PO SCH (08:17)
[2023-05-10] MEDS: Losartan 25 MG TAB PO SCH ×2 (08:17→20:12)
[2023-05-10] MEDS: Vancomycin HCl 125 MG Capsule PO SCH ×2 (08:17→20:12)
[2023-05-10] MEDS ORDERED: Heparin 10,000 UNITS/ 10 ML VIAL ONE (11:17)
[2023-05-10] MEDS: D5W-AA 4.25% with LYTES 1,000 ML IV SCH (15:02)
[2023-05-10] MEDS ORDERED: Acetaminophen/Codeine 30-300mg Tablet PO PRN (17:30)
[2023-05-10] MEDS: Mirtazapine 30 MG TAB PO SCH (20:12)
[2023-05-10] MEDS: traZODone HCl 50 MG TAB PO SCH (20:12)
[2023-05-10] MEDS: Cilostazol 100 MG TAB PO SCH (20:12)
[2023-05-10] MEDS: Famotidine/PF 20 mg/2ml Vial SLOW IVP SCH (20:12)
[2023-05-11] MEDS: Metoclopramide HCl 10 MG/2 ML VIAL IVP SCH ×2 (04:28→08:21)
[2023-05-11] MEDS: Saccharomyces boulardii 250 MG CAP PO SCH (08:18)
[2023-05-11] MEDS: Cilostazol 100 MG TAB PO SCH ×2 (08:18→21:27)
[2023-05-11] MEDS: Vancomycin HCl 125 MG Capsule PO SCH ×2 (08:18→21:31)
[2023-05-11] MEDS: hydrALAZINE 25 MG TAB PO PRN (08:19)
[2023-05-11] MEDS: Losartan 25 MG TAB PO SCH ×2 (08:19→21:27)
[2023-05-11] MEDS: D5W-AA 4.25% with LYTES 1,000 ML IV SCH (12:16)
[2023-05-11] MEDS: Dextrose 50% Abboject 50 ML SYRINGE IVP PRN ×2 (17:18→20:52)
[2023-05-11] MEDS: Metoclopramide 10 MG/10 ML UDCUP PO SCH ×2 (17:18→21:31)
[2023-05-11] MEDS: traZODone HCl 50 MG TAB PO SCH (21:27)
[2023-05-11] MEDS: Mirtazapine 30 MG TAB PO SCH (21:28)
[2023-05-12] MEDS: D5W-AA 4.25% with LYTES 1,000 ML IV SCH ×2 (04:41→22:30)
[2023-05-12] MEDS: Vancomycin HCl 125 MG Capsule PO SCH ×2 (10:40→20:23)
[2023-05-12] MEDS: Losartan 25 MG TAB PO SCH ×2 (10:40→20:23)
[2023-05-12] MEDS: Metoclopramide 10 MG/10 ML UDCUP PO SCH ×5 (10:40→20:24)
[2023-05-12] MEDS: Cilostazol 100 MG TAB PO SCH ×2 (10:40→20:24)
[2023-05-12] MEDS: Saccharomyces boulardii 250 MG CAP PO SCH (10:40)
[2023-05-12] MEDS: Gabapentin 300 MG CAP PO SCH (10:41)
[2023-05-12] MEDS: Mirtazapine 30 MG TAB PO SCH (20:24)
[2023-05-12] MEDS: traZODone HCl 50 MG TAB PO SCH (20:24)
[2023-05-13] MEDS: Losartan 25 MG TAB PO SCH ×2 (08:07→20:26)
[2023-05-13] MEDS: Gabapentin 300 MG CAP PO SCH (08:07)
[2023-05-13] MEDS: Saccharomyces boulardii 250 MG CAP PO SCH (08:07)
[2023-05-13] MEDS: Cilostazol 100 MG TAB PO SCH ×2 (08:07→20:26)
[2023-05-13] MEDS: Vancomycin HCl 125 MG Capsule PO SCH ×2 (08:08→20:26)
[2023-05-13] MEDS: Metoclopramide 10 MG/10 ML UDCUP PO SCH ×4 (08:44→20:26)
[2023-05-13] MEDS ORDERED: Heparin 10,000 UNITS/ 10 ML VIAL ONE (09:13)
[2023-05-13 09:53] LABS: #Eosinphils 0.1 thou/uL (0.0-0.7); #Monocytes 0.1 thou/uL (0.11-0.59); #Neutrophils 3.4 thou/uL (1.40-6.50); %Basophils 0.2 % (0.0-1.0); %Eosinophils 1.9 % (0.0-10.0); %Lymphocytes 22.7 % (21.0-51.0); %Monocytes 2.3 % (0.0-10.0); %Neutrophils 72.3 % (42.0-75.0); Hematocrit 15.1 % (36.0-47.0); Hemoglobin 4.8 g/dL (12.0-16.0); Mean Corpuscular HGB CONC 31.8 g/dL (32.0-36.0); Mean Corpuscular Hemoglobin 28.2 pg (27.0-31.0); Mean Corpuscular Volume 88.8 fl (78.0-98.0); Mean Platelet Volume 9.9 fL (7.4-10.4); RBC Distribution Width 16.4 % (11.5-14.5); White Blood Cell (WBC) Count 4.7 10x3/uL (4.8-10.8)
[2023-05-13 09:54] LABS: Platelet Count 57 10x3/uL (130-400)
[2023-05-13 10:21] LABS: Anion Gap 12 mmol/L (10-20); BUN (Urea Nitrogen) 67 mg/dL (9.8-20.1); Calc. Creatinine Clearance 25 mL/min (70-130); Calcium 7.7 mg/dL (7.8-10.44); Carbon Dioxide 19 mmol/L (23-31); Chloride 97 mmol/L (98-107); Estimated GFR 18; Glucose 78 mg/dL (80-115); Magnesium 2.1 mg/dL (1.6-2.6); Phosphorus 6.2 mg/dL (2.3-4.7); Potassium 3.7 mmol/L (3.5-5.1); Sodium 124 mmol/L (136-145)
[2023-05-13 10:53] LABS: Hematocrit 15.1 % (36.0-47.0); Hemoglobin 4.6 g/dL (12.0-16.0)
[2023-05-13 10:55] LABS: Platelet Count 56 10x3/uL (130-400)
[2023-05-13 11:04] LABS: Platelet Adequacy Comment Significant decrease; Polychromasia SLIGHT = 2-3 cells (100X) (0-2/hpf)
[2023-05-13 11:05] LABS: Hypochromia SLIGHT = 6-15 cells (100X) (0-5/hpf)
[2023-05-13] MEDS: D5W-AA 4.25% with LYTES 1,000 ML IV SCH (13:57)
[2023-05-13] MEDS: traZODone HCl 50 MG TAB PO SCH (20:26)
[2023-05-13] MEDS: Mirtazapine 30 MG TAB PO SCH (20:26)
[2023-05-13 20:52] LABS: Hemoglobin 9.9 g/dL (12.0-16.0); Platelet Count 48 10x3/uL (130-400)
[2023-05-13 20:53] LABS: Hematocrit 29.5 % (36.0-47.0)
[2023-05-14] MEDS: Dextrose 50% Abboject 50 ML SYRINGE IVP PRN ×7 (00:30→23:58)
[2023-05-14] MEDS: D5W-AA 4.25% with LYTES 1,000 ML IV SCH ×2 (05:17→19:59)
[2023-05-14] MEDS: Metoclopramide 10 MG/10 ML UDCUP PO SCH (08:21)
[2023-05-14] MEDS: Vancomycin HCl 125 MG Capsule PO SCH ×3 (08:25→21:21)
[2023-05-14] MEDS: Losartan 25 MG TAB PO SCH ×3 (08:25→21:20)
[2023-05-14] MEDS: Saccharomyces boulardii 250 MG CAP PO SCH (08:25)
[2023-05-14] MEDS: Cilostazol 100 MG TAB PO SCH ×3 (08:25→21:20)
[2023-05-14] MEDS: Gabapentin 300 MG CAP PO SCH (08:25)
[2023-05-14 09:34] LABS: Hematocrit 24.6 % (36.0-47.0); Hemoglobin 8.5 g/dL (12.0-16.0); Mean Corpuscular HGB CONC 34.6 g/dL (32.0-36.0); Mean Corpuscular Hemoglobin 28.8 pg (27.0-31.0); Mean Platelet Volume 10.5 fL (7.4-10.4); RBC Distribution Width 15.9 % (11.5-14.5); Red Blood Cell (RBC) Count 2.95 mill/uL (4.20-5.40); White Blood Cell (WBC) Count 6.2 10x3/uL (4.8-10.8)
[2023-05-14 09:35] LABS: Mean Corpuscular Volume 83.4 fl (78.0-98.0); Platelet Count 42 10x3/uL (130-400)
[2023-05-14 09:36] LABS: Delete Auto Diff?? YES; Manual Diff?? YES
[2023-05-14 09:57] LABS: Anion Gap 17 mmol/L (10-20); BUN (Urea Nitrogen) 56 mg/dL (9.8-20.1); Calc. Creatinine Clearance 33 mL/min (70-130); Calcium 7.8 mg/dL (7.8-10.44); Carbon Dioxide 15 mmol/L (23-31); Chloride 99 mmol/L (98-107); Estimated GFR 24; Glucose 112 mg/dL (80-115); Phosphorus 4.9 mg/dL (2.3-4.7); Potassium 4.1 mmol/L (3.5-5.1); Sodium 127 mmol/L (136-145)
[2023-05-14 11:11] LABS: Band 7 % (5-11); Eosinophils 4 % (0-10); Lymphocytes 23 % (21-51); Neutrophil 66 % (42-75); Platelet Adequacy Comment Appears Decreased; Polychromasia SLIGHT = 2-3 cells (100X) (0-2/hpf)
[2023-05-14] MEDS: Metoclopramide HCl 10 MG/2 ML VIAL IVP SCH ×3 (11:14→21:21)
[2023-05-14] MEDS: Mirtazapine 30 MG TAB PO SCH (21:21)
[2023-05-14] MEDS: traZODone HCl 50 MG TAB PO SCH (21:21)
[2023-05-15] MEDS: Dextrose 50% Abboject 50 ML SYRINGE IVP PRN ×6 (04:30→21:54)
[2023-05-15] MEDS: Metoclopramide HCl 10 MG/2 ML VIAL IVP SCH ×4 (08:27→21:20)
[2023-05-15] MEDS: Saccharomyces boulardii 250 MG CAP PO SCH (08:28)
[2023-05-15] MEDS: Vancomycin HCl 125 MG Capsule PO SCH (08:28)
[2023-05-15] MEDS: Losartan 25 MG TAB PO SCH ×2 (08:28→21:22)
[2023-05-15] MEDS: Cilostazol 100 MG TAB PO SCH ×2 (08:28→21:22)
[2023-05-15 08:55] LABS: HBSAg Index 0.32 S/CO (0-0.99); Hep B Core Total Ab Non-Reactive (NonReactive); Hep B Core Total Index 0.12 S/CO (0-0.79); Hep B Surf Ag Non-Reactive S/CO (NonReactive)
[2023-05-15 08:56] LABS: HBSAB Concentration Less than 8.00 mIU/mL; Hep B Surf AB Non-Reactive (NonReactive); Hep C IgG Ab Non-Reactive S/CO (NonReactive); Hep C Index 0.12 S/CO (0-0.79)
[2023-05-15] MEDS: D5W-AA 4.25% with LYTES 1,000 ML IV SCH ×2 (10:27→21:20)
[2023-05-15] MEDS ORDERED: Fat Emulsion 250 ML, Multivitamins, Adult 10 ML, TRACE ELEMENT CONCENTRATE 1 ML in D15W... IV SCH (14:00)
[2023-05-15 15:52] LABS: Hematocrit 24.1 % (36.0-47.0); Hemoglobin 7.8 g/dL (12.0-16.0); Mean Corpuscular HGB CONC 32.4 g/dL (32.0-36.0); Mean Corpuscular Hemoglobin 28.5 pg (27.0-31.0); RBC Distribution Width 16.6 % (11.5-14.5); Red Blood Cell (RBC) Count 2.74 mill/uL (4.20-5.40); White Blood Cell (WBC) Count 4.7 10x3/uL (4.8-10.8)
[2023-05-15 15:55] LABS: Delete Auto Diff?? YES; Manual Diff?? YES; Platelet Count 32 10x3/uL (130-400)
[2023-05-15 16:15] LABS: Anisocytosis SLIGHT = 6-15 cells HPF (0-5); Band 9 % (5-11); Burr Cells SLIGHT = 2-5 cells HPF (0-1); CellaVision Operator ID LAB.KB; Eosinophils 1 % (0-10); Lymphocytes 14 % (21-51); Neutrophil 74 % (42-75); Platelet Adequacy Comment Significant decrease; Polychromasia SLIGHT = 2-3 cells HPF (0-2); Smudge Cells 16.3 %; Tear Drops SLIGHT = 2-5 cells HPF (0-1); Total Cell Count 98
[2023-05-15] MEDS ORDERED: Vancomycin HCl 500 MG, Sodium Chloride 0.9% 100 ML PR SCH (18:00)
[2023-05-15] MEDS: Mirtazapine 30 MG TAB PO SCH (21:22)
[2023-05-15] MEDS: traZODone HCl 50 MG TAB PO SCH (21:22)
[2023-05-15] MEDS: Nystatin Ointment 15 GM TUBE TOP SCH (23:24)
[2023-05-16] MEDS: Dextrose 50% Abboject 50 ML SYRINGE IVP PRN (01:10)
[2023-05-16 05:57] LABS: Hematocrit 25.7 % (36.0-47.0); Hemoglobin 8.2 g/dL (12.0-16.0); Mean Corpuscular HGB CONC 31.9 g/dL (32.0-36.0); Mean Corpuscular Hemoglobin 28.7 pg (27.0-31.0); Mean Corpuscular Volume 89.9 fl (78.0-98.0); RBC Distribution Width 16.7 % (11.5-14.5); Red Blood Cell (RBC) Count 2.86 mill/uL (4.20-5.40); White Blood Cell (WBC) Count 4.5 10x3/uL (4.8-10.8)
[2023-05-16 05:59] LABS: Delete Auto Diff?? YES; Manual Diff?? YES; Platelet Count 31 10x3/uL (130-400)
[2023-05-16 06:13] LABS: Anion Gap 13 mmol/L (10-20); BUN (Urea Nitrogen) 40 mg/dL (9.8-20.1); Calc. Creatinine Clearance 47 mL/min (70-130); Calcium 7.4 mg/dL (7.8-10.44); Carbon Dioxide 18 mmol/L (23-31); Chloride 99 mmol/L (98-107); Estimated GFR 38; Glucose 66 mg/dL (80-115); Potassium 3.7 mmol/L (3.5-5.1); Sodium 126 mmol/L (136-145)
[2023-05-16 06:55] LABS: Band 2 % (5-11); Burr Cells SLIGHT = 2-5 cells HPF (0-1); CellaVision Operator ID lab.abc; Eosinophils 2 % (0-10); Lymphocytes 4 % (21-51); Monocytes 1 % (0-10); Neutrophil 91 % (42-75); Platelet Adequacy Comment Platelets Decreased; Polychromasia SLIGHT = 2-3 cells HPF (0-2); Smudge Cells 16.8 %; Total Cell Count 101
[2023-05-16] MEDS: Nystatin Ointment 15 GM TUBE TOP SCH ×2 (08:49→21:19)
[2023-05-16] MEDS: Gabapentin 300 MG CAP PO SCH (08:49)
[2023-05-16] MEDS: Cilostazol 100 MG TAB PO SCH ×2 (08:49→21:18)
[2023-05-16] MEDS: Metoclopramide HCl 10 MG/2 ML VIAL IVP SCH ×4 (08:50→21:19)
[2023-05-16] MEDS: Saccharomyces boulardii 250 MG CAP PO SCH (08:50)
[2023-05-16] MEDS: Losartan 25 MG TAB PO SCH ×2 (08:50→21:19)
[2023-05-16] MEDS: Vancomycin HCl 125 MG Capsule PO SCH (08:50)
[2023-05-16] MEDS: D5W-AA 4.25% with LYTES 1,000 ML IV SCH (11:26)
[2023-05-16 21:18] VITALS: BP 133/63; TEMP 96.9
[2023-05-16] MEDS: Mirtazapine 30 MG TAB PO SCH (21:19)
[2023-05-16] MEDS: traZODone HCl 50 MG TAB PO SCH (21:19)
[2023-05-23] MEDS ORDERED: Vancomycin HCl 125 MG Capsule PO SCH (09:00)
== END 2023-05-16 23:14 | disposition hospice, home (50) | DRG 853 ==
LOC: ERS 09:10 → SUATTDRO 09:10 → ERHOLD 12:45 → CCU 15:57 → T4-B 04-24 13:07
PROVIDERS: ADMIT Internal Medicine; ATTEND Internal Medicine
PROC: 06HY33Z Insertion of Infusion Device into Lower Vein, Percutaneous Approach (ICD-10-PCS; 2023-04-21)
PROC: 30233N1 Transfusion of Nonautologous Red Blood Cells into Peripheral Vein, Percutaneous Approach (ICD-10-PCS; 2023-04-21)
PROC: 6A4Z0ZZ Hypothermia, Single (ICD-10-PCS; 2023-04-21)
PROC: 3E033XZ Introduction of Vasopressor into Peripheral Vein, Percutaneous Approach (ICD-10-PCS; 2023-04-21)
PROC: 3E03329 Introduction of Other Anti-infective into Peripheral Vein, Percutaneous Approach (ICD-10-PCS; 2023-04-21)
PROC: 0JDP0ZZ Extraction of Left Lower Leg Subcutaneous Tissue and Fascia, Open Approach (ICD-10-PCS; principal; 2023-04-22)
PROC: 30233J1 Transfusion of Nonautologous Serum Albumin into Peripheral Vein, Percutaneous Approach (ICD-10-PCS; 2023-04-24)
DX: A41.59 Other Gram-negative sepsis (principal); G93.41 Metabolic encephalopathy; N18.6 End stage renal disease; R65.21 Severe sepsis with septic shock; I12.0 Hypertensive chronic kidney disease with stage 5 chronic kidney disease or end stage renal disease; N39.0 Urinary tract infection, site not specified; N17.9 Acute kidney failure, unspecified; E87.20 Acidosis, unspecified; E87.1 Hypo-osmolality and hyponatremia; A04.72 Enterocolitis due to Clostridium difficile, not specified as recurrent; Z16.24 Resistance to multiple antibiotics; N25.81 Secondary hyperparathyroidism of renal origin; K56.7 Ileus, unspecified; H54.40 Blindness, one eye, unspecified eye; E78.5 Hyperlipidemia, unspecified; D63.1 Anemia in chronic kidney disease; E11.22 Type 2 diabetes mellitus with diabetic chronic kidney disease; T68.XXXA Hypothermia, initial encounter; E11.649 Type 2 diabetes mellitus with hypoglycemia without coma; E87.6 Hypokalemia; E88.09 Other disorders of plasma-protein metabolism, not elsewhere classified; R63.0 Anorexia; E11.21 Type 2 diabetes mellitus with diabetic nephropathy; E11.42 Type 2 diabetes mellitus with diabetic polyneuropathy; E11.43 Type 2 diabetes mellitus with diabetic autonomic (poly)neuropathy; D69.6 Thrombocytopenia, unspecified; E66.9 Obesity, unspecified; E83.39 Other disorders of phosphorus metabolism; E11.40 Type 2 diabetes mellitus with diabetic neuropathy, unspecified; Z88.8 Allergy status to other drugs, medicaments and biological substances; Z68.31 Body mass index [BMI] 31.0-31.9, adult; Z79.899 Other long term (current) drug therapy
CPT/HCPCS: 36415; 36416; 36430; 36556; 51702; 71045; 71250; 74018; 74177; 76705; 80048; 80053; 80076; 80202; 81001; 83605; 83735; 84100; 84145; 84484; 85025; 85049; 85300; 85362; 85379; 85384; 85610; 85730; 86704; 86706; 86850; 86900; 86901; 87040; 87077; 87081; 87086; 87186; 87324; 87340; 87449; 87493; 90935; 93005; 96365; 96367; 97139; C9113; G0257; J0692; J1611; J1644; J2185; J2405; J2543; J2765; J2997; J3370; J3370-JW; J3371; J3475; J3480; J3490; J7030; J7042; J7050; J7070; J7999; P9016; P9047; Q0167; Q0169; Q4081; S0028